=== PATIENT | male | born 1990 | race Caucasian/White ===

== ENCOUNTER 2023-01-01 03:06 | Inpatient (IN) ==
[2023-01-01] MEDS ORDERED: BENZONATATE 100 MG CAPSULE PO ONE (03:27)
[2023-01-01] MEDS ORDERED: SODIUM CHLORIDE 0.9% 1000ML 1,000 ML IV ONE (03:27)
[2023-01-01] MEDS ORDERED: ALBUT/IPRATROP 3MG/0.5MG NEB 3 ML VIAL NEB STA (03:27)
[2023-01-01] MEDS ORDERED: DOXYCYCLINE HYCLATE 100 MG in DEXTROSE 5% 100 ML IV STA (03:27)
[2023-01-01 04:00] LABS: Basophils # (auto) 0.06 K/uL (0-0.2); Basophils % (auto) 0.4 %; Eosinophils # (auto) 0.46 K/uL (0-0.50); Eosinophils % (auto) 2.9 %; Hematocrit (blood only) 39.8 % (42.0-52.0); Hemoglobin 13.2 g/dl (14.0-18.0); Immature Granulocytes # (auto) 0.05 K/uL (0.01-0.20); Immature Granulocytes % (auto) 0.3 %; Lymphocytes # (auto) 2.59 K/uL (1.2-3.4); Lymphocytes % (auto) 16.4 %; Mean Corpuscular Hemoglobin 27.4 pg (25.0-34.0); Mean Corpuscular Hgb Conc 33.2 g/dL (32.0-36.0); Mean Corpuscular Volume 82.6 fL (80.0-100.0); Mean Platelet Volume 9.2 fL (9.4-12.4); Monocytes # (auto) 0.99 K/uL (0.11-0.59); Monocytes % (auto) 6.3 %; Neutrophils % (auto) 73.7 %; Platelet Count 272 K/uL (130-400); RDW Coefficient of Variation 14.4 % (11.5-14.5); RDW Standard Deviation 42.6 fL (36.4-46.3); Red Blood Count 4.82 M/uL (4.70-6.10); White Blood Count 15.75 K/ul (4.8-10.8)
--- NOTE | 2023-01-01 04:10 | Emergency Department Note ---
Impression & Plan Dyspnea, Pneumonia, Hemoptysis, Dizziness, Hypoxia ED Provider Note ED Provider Note NAME: GISELLE MORTON AGE:32 SEX: Male : 1990 ARRIVES VIA: Private vehicle INFORMANT: Patient ED PROVIDER(s): Carmen Cotto DO CHIEF COMPLAINT: Trouble breathing, blood in sputum, dizziness HPI: This is a 32-year-old male presents emergency department due to concern for increased trouble breathing, blood in the sputum, and dizziness today. Patient had been seen and evaluated here last night and ultimately diagnosed with pneumonia. He was started on antibiotics. Patient states he felt worse throughout the day today with increased weakness, dizziness, had no appetite and did not take his medications. He states he began to feel lightheaded additionally. Patient states he noticed frequent bouts of coughing today and he was seeing bits of blood in his sputum. Patient denies blood from any other source. He states he was nauseated did not have any vomiting, no diarrhea, no abdominal pain. Patient states he still has some right flank pain which was his initial presenting complaint last night, although he feels overall the pain is improved. PAST MEDICAL HISTORY:See Below PAST SURGICAL HISTORY:See Below FAMILY HISTORY:See Below SOCIAL HISTORY:See Below HOME MEDICATIONS:See Below ALLERGIES:See Below VITALS:See Below PHYSICAL EXAMINATION: GENERAL: alert, well appearing, well nourished, no distress, non-toxic, BMI>50 EYE EXAM: normal conjunctiva, PERRL and EOM's grossly intact OROPHARYNX: no exudate, no erythema, lips, buccal mucosa, and tongue normal and mucous membranes are dry NECK: supple, no nuchal rigidity, no adenopathy, non-tender LUNGS: Clear b/l to auscultation. Normal chest wall mechanics, no w/r/r, decreased breath sounds noted at the right lung base posteriorly HEART: no murmurs, S1 normal and S2 normal ABDOMEN: abdomen soft, non-tender, normo-active bowel sounds, no masses, no rebound or guarding. BACK: Back is symmetrical on inspection and there is no deformity, no midline tenderness, no CVA tenderness. SKIN: no rashes, petechiae, orbruising UPPER EXTREMITIES: upper extremities are grossly normal. FROM, nml pulses b/l. LOWER EXTREMITIES: Trace b/l pitting edema. FROM, nml pulses b/l. NEURO EXAM: Normal sensorium, cranial nerves II-XII grossly intact, normal speech, no facial droop,nogross weakness of arms, no gross weakness of legs. Gross sensation intact. No ataxia. Vital Signs: reviewed and remarkable Differential Diagnosis: Pneumonia, PE, pleural effusion, pulmonary infarct, airway inflammation from frequent coughing, GI bleed, ACS, dysrhythmia, as well as others were considered MEDICAL DECISION MAKING: This is a 32-year-old male presents emergency room due to concern for increased trouble breathing, hemoptysis, dizziness, and weakness. Patient diagnosed with pneumonia yesterday. Labs drawn and sent, IV established, EKG performed interpreted me at bedside, patient monitored on telemetry. He was started on IV fluids, given a DuoNeb treatment, as well as a dose of his IV antibiotics as he had not been able to tolerate them by mouth yesterday. I suspect due to underlying illness patient with decreased oral intake which led to dehydration and likely symptoms of lightheadedness/dizziness. Patient did have a worsening leukocytosis compared to yesterday. Nasal swab negative. No other significant pulmonary risk factors. Patient was noted while awake and at rest to be hypoxic at 88% on room air, he was placed on oxygen via nasal cannula with improvement. Despite known pneumonia and due to worsening hemoptysis, patient sent for CT angiography of the chest. Pneumonia again noted, no evidence of PE. Due to increased oxygen requirements, worsening leukocytosis in the setting of known infection, and other calming symptoms at this time, case discussed with the hospitalist for additional evaluation and management. Consultation(s): [id number]: Discussed with Dr. Francis. ER Treatment Provided: See below Diagnostics Interpreted By Me: -ECG: Normal sinus at 83, normal axis, normal intervals, no acute ST/T wave changes -Cardiac Monitoring: An order was placed for continuous cardiac monitoring. The monitor shows a rate of 78 with normal sinus rhythm. -Laboratory studies: As stated above and show below. -Imaging studies: Triage Nursing Note Reviewed Prior/Outside Records Reviewed - outpatient PCP visit reviewed Past Med/Surg History Medical History ADHD Carpal tunnel syndrome on both sides Morbid obesity with BMI of 50.0-59.9, adult Rectal bleeding Sleep apnea CPAP Surgical History History of appendectomy History of facial surgery reconstructive facial surgery History of foot surgery History of tonsillectomy Family History Other No family history of adverse response to anesthesia Social History Smoking Status: Never smoker Tobacco Type: Smokeless Tobacco (Dip or Chew) Second Hand Exposure: No; Do You Dip or Chew Tobacco: Yes (chews (advised on policy)); Hx Alcohol Use: Yes Alcohol type: beer Hx Substance Use: No Preferred Language: Micronesian Communication Ability: Effective Mattress Inspector Required: No Beliefs That Will Affect Care: None Current Living Situation: Alone Feels Safe at Home: Yes Assistive Devices: None Allergies Allergies Allergy/AdvReac Type Severity Reaction Status Date / Time amoxicillin Allergy Intermediate Redness of Verified 12/30/22 23:25 Skin cefprozil Allergy Intermediate Redness of Verified 12/30/22 23:25 Skin clarithromycin Allergy Intermediate Redness of Verified 12/30/22 23:25 Skin Penicillins Allergy Intermediate Redness of Verified 12/30/22 23:25 Skin Home Meds Home Medications Medication Instructions Recorded Confirmed ibuprofen 200 mg tablet (Advil) 400 mg PO Q6H PRN Pain 12/12/21 03/01/22 albuterol sulfate 90 mcg/actuation 2 puff inhalation Q4H PRN 02/24/22 12/30/22 aerosol inhaler Shortness Of Breath azelastine 137 mcg (0.1 %) nasal 2 spray intranasal BID 02/26/22 12/30/22 spray aerosol fluticasone propionate 50 2 spray intranasal DAILY 02/26/22 12/30/22 mcg/actuation nasal spray,suspension allopurinol 300 mg tablet 300 mg PO QAM 12/30/22 12/30/22 indomethacin 75 mg 75 mg PO DAILY 12/30/22 12/30/22 capsule,extended release omeprazole 40 mg capsule,delayed 40 mg PO DAILYBB 12/30/22 12/30/22 release prednisone 20 mg tablet 0 mg PO DAILY 12/30/22 12/30/22 semaglutide (weight loss) 0.25 0.25 mg subcut WK 12/30/22 12/30/22 mg/0.5 mL subcutaneous pen injector (Josseline) Previous Rx's Medication Instructions Recorded doxycycline hyclate 100 mg tablet 100 mg PO BID 7 days #14 tabs 12/31/22 Results & Data (ED) Vital Signs Vital Signs - 24 hr 01/01/23 03:09 01/01/23 03:46 01/01/23 03:46 Temperature 36.8 C Temperature Source Temporal Artery Scan Pulse Rate 90 Pulse Rate [Finger] 93 H Pulse Rate from SpO2 Sensor Pulse Rhythm [Finger] Regular Pulse Strength [Finger] Normal Respiratory Rate 22 22 Respiratory Effort / Characteristics Non-Labored Non-Labored Spontaneous Spontaneous Respiratory Depth Normal Normal Normal Respiratory Pattern Regular Regular Blood Pressure 163/97 H Blood Pressure [Right Arm] 133/79 Blood Pressure Mean 119 Blood Pressure Mean [Right Arm] 97 Pulse Oximetry 95 94 Oxygen Delivery Method Room Air Room Air Room Air Oxygen Flow Rate Sepsis Recent Fever Within 48 Hours No Sepsis New/Unexplained Change in Mental Status N/A Sepsis Action Taken by Nursing No Action Required 01/01/23 03:46 01/01/23 03:39 01/01/23 03:40 Temperature Temperature Source Pulse Rate 84 88 Pulse Rate [Finger] Pulse Rate from SpO2 Sensor 86 Pulse Rhythm [Finger] Pulse Strength [Finger] Respiratory Rate 31 H Respiratory Effort / Characteristics Respiratory Depth Respiratory Pattern Blood Pressure Blood Pressure [Right Arm] Blood Pressure Mean Blood Pressure Mean [Right Arm] Pulse Oximetry 97 Oxygen Delivery Method Room Air Oxygen Flow Rate Sepsis Recent Fever Within 48 Hours Sepsis New/Unexplained Change in Mental Status Sepsis Action Taken by Nursing 01/01/23 04:00 01/01/23 04:30 01/01/23 03:50 Temperature Temperature Source Pulse Rate 89 81 Pulse Rate [Finger] Pulse Rate from SpO2 Sensor 89 85 Pulse Rhythm [Finger] Pulse Strength [Finger] Respiratory Rate 33 H 20 24 Respiratory Effort / Characteristics Respiratory Depth Deep Respiratory Pattern Blood Pressure 128/83 131/75 Blood Pressure [Right Arm] Blood Pressure Mean 98 93 Blood Pressure Mean [Right Arm] Pulse Oximetry 93 92 88 L Oxygen Delivery Method Nasal Cannula Nasal Cannula Room Air Oxygen Flow Rate 3 3 Sepsis Recent Fever Within 48 Hours Sepsis New/Unexplained Change in Mental Status Sepsis Action Taken by Nursing 01/01/23 05:16 01/01/23 05:30 01/01/23 05:30 Temperature Temperature Source Pulse Rate 82 82 Pulse Rate [Finger] Pulse Rate from SpO2 Sensor 81 Pulse Rhythm [Finger] Pulse Strength [Finger] Respiratory Rate 19 27 H Respiratory Effort / Characteristics Respiratory Depth Respiratory Pattern Blood Pressure 133/72 Blood Pressure [Right Arm] Blood Pressure Mean 92 Blood Pressure Mean [Right Arm] Pulse Oximetry 94 Oxygen Delivery Method Oxygen Flow Rate Sepsis Recent Fever Within 48 Hours Sepsis New/Unexplained Change in Mental Status Sepsis Action Taken by Nursing 01/01/23 06:00 01/01/23 06:01 01/01/23 06:01 Temperature Temperature Source Pulse Rate 93 H 95 H Pulse Rate [Finger] Pulse Rate from SpO2 Sensor 91 H 93 H Pulse Rhythm [Finger] Pulse Strength [Finger] Respiratory Rate 26 H 26 H Respiratory Effort / Characteristics Respiratory Depth Respiratory Pattern Blood Pressure 129/88 Blood Pressure [Right Arm] Blood Pressure Mean 101 Blood Pressure Mean [Right Arm] Pulse Oximetry 97 97 Oxygen Delivery Method Oxygen Flow Rate Sepsis Recent Fever Within 48 Hours Sepsis New/Unexplained Change in Mental Status Sepsis Action Taken by Nursing Laboratory Data 01/01/23 03:38 01/01/23 03:38 Lab Results 01/01/23 01/01/23 01/01/23 Range/Units 03:38 03:38 03:40 WBC 15.75 H (4.8-10.8) K/ul RBC 4.82 (4.70-6.10) M/uL Hgb 13.2 L (14.0-18.0) g/dl Hct 39.8 L (42.0-52.0) % MCV 82.6 (80.0-100.0) fL MCH 27.4 (25.0-34.0) pg MCHC 33.2 (32.0-36.0) g/dL RDW Std Deviation 42.6 (36.4-46.3) fL RDW Coeff of Samson 14.4 (11.5-14.5) % Plt Count 272 (130-400) K/uL MPV 9.2 L (9.4-12.4) fL Immature Gran % (Auto) 0.3 % Neut % (Auto) 73.7 % Lymph % (Auto) 16.4 % Adams % (Auto) 6.3 % Eos % (Auto) 2.9 % Baso % (Auto) 0.4 % Neut # (Auto) 11.60 H (1.40-6.50) K/uL Lymph # (Auto) 2.59 (1.2-3.4) K/uL Adams # (Auto) 0.99 H (0.11-0.59) K/uL Eos # (Auto) 0.46 (0-0.50) K/uL Baso # (Auto) 0.06 (0-0.2) K/uL Immature Gran # (Auto) 0.05 (0.01-0.20) K/uL Sodium 136 (136-145) mmol/L Potassium 4.3 (3.5-5.1) mmol/L Chloride 102 (98-107) mmol/L Carbon Dioxide 28 (21-32) mmol/L Anion Gap 6 (3-11) BUN 11 (6-23) mg/dl Creatinine 0.74 (0.6-1.4) mg/dl Est Cr Clr Drug Dosing 198.4 ml/min Est GFR ( Amer) 141.5 ml/min Est GFR (Non-Af Amer) 122.1 ml/min BUN/Creatinine Ratio 14.9 (10-20) Glucose 142 H (70-99(Fasting)) mg/dl Calcium 9.1 (8.6-10.3) mg/dl Magnesium 1.9 (1.7-2.4) mg/dl Total Bilirubin 0.6 (0.2-1.0) mg/dl AST 13 (13-39) U/L ALT 12 (7-52) U/L Alkaline Phosphatase 81 (34-104) U/L Troponin I High Sens 4.8 (0-20) pg/ml Total Protein 6.9 (6.0-8.3) gm/dl Albumin 4.0 (3.4-5.0) gm/dl Globulin 2.9 (2.5-4.0) gm/dl Albumin/Globulin Ratio 1.4 (0.9-2) Procalcitonin 0.06 (0-0.5) ng/ml SARS-CoV-2 (PCR) (Negative) Influenza Type A (PCR) (Neg) Influenza Type B (PCR) (Neg) RSV (RT-PCR) (Neg) 01/01/23 Range/Units 04:25 WBC (4.8-10.8) K/ul RBC (4.70-6.10) M/uL Hgb (14.0-18.0) g/dl Hct (42.0-52.0) % MCV (80.0-100.0) fL MCH (25.0-34.0) pg MCHC (32.0-36.0) g/dL RDW Std Deviation (36.4-46.3) fL RDW Coeff of Samson (11.5-14.5) % Plt Count (130-400) K/uL MPV (9.4-12.4) fL Immature Gran % (Auto) % Neut % (Auto) % Lymph % (Auto) % Adams % (Auto) % Eos % (Auto) % Baso % (Auto) % Neut # (Auto) (1.40-6.50) K/uL Lymph # (Auto) (1.2-3.4) K/uL Adams # (Auto) (0.11-0.59) K/uL Eos # (Auto) (0-0.50) K/uL Baso # (Auto) (0-0.2) K/uL Immature Gran # (Auto) (0.01-0.20) K/uL Sodium (136-145) mmol/L Potassium (3.5-5.1) mmol/L Chloride (98-107) mmol/L Carbon Dioxide (21-32) mmol/L Anion Gap (3-11) BUN (6-23) mg/dl Creatinine (0.6-1.4) mg/dl Est Cr Clr Drug Dosing ml/min Est GFR ( Amer) ml/min Est GFR (Non-Af Amer) ml/min BUN/Creatinine Ratio (10-20) Glucose (70-99(Fasting)) mg/dl Calcium (8.6-10.3) mg/dl Magnesium (1.7-2.4) mg/dl Total Bilirubin (0.2-1.0) mg/dl AST (13-39) U/L ALT (7-52) U/L Alkaline Phosphatase (34-104) U/L Troponin I High Sens (0-20) pg/ml Total Protein (6.0-8.3) gm/dl Albumin (3.4-5.0) gm/dl Globulin (2.5-4.0) gm/dl Albumin/Globulin Ratio (0.9-2) Procalcitonin (0-0.5) ng/ml SARS-CoV-2 (PCR) NEGATIVE (Negative) Influenza Type A (PCR) Negative (Neg) Influenza Type B (PCR) Negative (Neg) RSV (RT-PCR) Negative (Neg) Administered Medications Discontinued Medications Albuterol (Albut/Ipratrop 3mg/0.5mg Neb 3 Ml Vial) 3 ml NEB NOW STA; Protocol Stop: 01/01/23 03:28 Last Admin: 01/01/23 03:33 Dose: 3 ml Documented By: JUVENCIO Benzonatate (Benzonatate 100 Mg Capsule) 100 mg PO NOW ONE Stop: 01/01/23 03:28 Last Admin: 01/01/23 03:34 Dose: 100 mg Documented By: JUVENCIO Sodium Chloride (Nss 1000ml) 1,000 mls @ 999 mls/hr IV .Q1H1M ONE Stop: 01/01/23 04:27 Last Infusion: 01/01/23 06:24 Dose: 0 mls/hr Documented By: Admin: 01/01/23 04:02 Dose: 999 mls/hr Documented By: JUVENCIO Doxycycline Hyclate 100 mg/ (Dextrose) 110 mls @ 50 mls/hr IV NOW STA Stop: 01/01/23 05:38 Last Infusion: 01/01/23 06:24 Dose: 0 mls/hr Documented By: Admin: 01/01/23 04:02 Dose: 50 mls/hr Documented By: JUVENCIO Acetaminophen (Ofirmev) 1,000 mg in 100 mls @ 400 mls/hr IV NOW STA Stop: 01/01/23 05:51 Last Infusion: 01/01/23 06:51 Dose: 0 mls/hr Documented By: Admin: 01/01/23 06:24 Dose: 400 mls/hr Documented By: JUVENCIO Ioversol (Optiray 320 500ml) 114 ml IV ONCE ONE Stop: 01/01/23 05:19 Last Admin: 01/01/23 05:18 Dose: 114 ml Documented By: JON Imaging Data Radiologist's Impression: Chest CTA 01/01/23 03:27 CT angio chest PE protocol CLINICAL HISTORY: PE TECHNIQUE: Multidetector row helical CT of the chest was performed with angiographic protocol. Coronal and sagittal reformations were obtained. Coronal and sagittal MIPS were obtained from the axial data set and were submitted for review. Automated dose lowering techniques and/or adjustment according to patient size were utilized for this exam. CT DOSE: 980.24 mGy.cm Comparison: Comparison is made to chest radiograph 12/31/2022 FINDINGS: Lungs and pleura: Multifocal airspace opacities are seen most prominently in the lower lungs. Again suspected, no suspicious nodules are seen. There are a few calcified. Heart and pericardium: Heart size is normal. No pericardial effusion. Vessels: No evidence of pulmonary embolism. Mediastinum and tyrone: Numerous mediastinal lymph nodes measure up to 10 mm in the right paratracheal station. Bilateral subcentimeter hilar lymph nodes are also seen. Chest wall and lower neck: Unremarkable. Abdomen: Unremarkable. Bones: Degenerative changes in the thoracic spine. IMPRESSION: No pulmonary embolus is seen. There are multifocal airspace opacities compatible with pneumonia with reactive hilar and mediastinal lymphadenopathy. ACT 112: Negative or not required by law. Electronically signed by: Rigo Aviles M.D. 01/01/2023 7:47 AM Discharge Plan Visit Data Chief Complaint: Shortness of Breath/Dyspnea Stated Complaint: COUGH, DIZZINESS, FATIGUE ED Provider: Carmen Cotto Discharge Problem: Dyspnea, Pneumonia, Hemoptysis, Dizziness, Hypoxia
[2023-01-01 04:15] LABS: Albumin Globulin Ratio 1.4 (0.9-2); BUN Creatinine Ratio 14.9 (10-20); Bilirubin,Total 0.6 mg/dl (0.2-1.0); Calcium 9.1 mg/dl (8.6-10.3); Creatinine Clr Calc Pharmacy 198.4 ml/min; Est GFR (African American) 141.5 ml/min; Est GFR (Non-African American) 122.1 ml/min; Globulin 2.9 gm/dl (2.5-4.0); Magnesium 1.9 mg/dl (1.7-2.4); Potassium 4.3 mmol/L (3.5-5.1); Total Protein 6.9 gm/dl (6.0-8.3)
[2023-01-01 04:21] LABS: Troponin I High Sensitivity 4.8 pg/ml (0-20)
[2023-01-01] MEDS ORDERED: OPTIRAY 320 500ml IV ONE (05:18)
[2023-01-01] MEDS ORDERED: ACETAMINOPHEN 1,000 MG/100 ML VIAL IV STA (05:37)
[2023-01-01 05:40] LABS: Influenza A virus by PCR Negative (Neg); Influenza B virus by PCR Negative (Neg); RSV by PCR Negative (Neg); SARS CoV2 RNA(COVID-19) Ceph NEGATIVE (Negative)
--- NOTE | 2023-01-01 07:06 | Electrocardiogram Report ---
Test Reason : Blood Pressure : / mmHG Vent. Rate : 083 BPM Atrial Rate : 083 BPM P-R Int : 136 ms QRS Dur : 088 ms QT Int : 334 ms P-R-T Axes : -02 050 056 degrees QTc Int : 392 ms Normal sinus rhythm Normal ECG When compared with ECG of 13-DEC-2021 00:38, No significant change was found Confirmed by Jhon Fox ([id number]) on 01/01/2023 7:06:20 AM Referred By: Becki Porter Confirmed By:Mayo Fox
--- NOTE | 2023-01-01 07:49 | CT Scan Report ---
CT angio chest PE protocol CLINICAL HISTORY: PE TECHNIQUE: Multidetector row helical CT of the chest was performed with angiographic protocol. Conner l and sagittal reformations were obtained. Coronal and sagittal MIPS were obtained from the axial win a set and were submitted for review. Automated dose lowering techniques and/or adjustment according to patient size were utilized for this exam. CT DOSE: 980.24 mGy.cm Comparison: Comparison is made to chest radiograph 12/31/2022 FINDINGS: Lungs and pleura: Multifocal airspace opacities are seen most prominently in the lower lungs. Again s uspected, no suspicious nodules are seen. There are a few calcified. Heart and pericardium: Heart size is normal. No pericardial effusion. Vessels: No evidence of pulmonary embolism. Mediastinum and tyrone: Numerous mediastinal lymph nodes measure up to 10 mm in the right paratracheal station. Bilateral subcentimeter hilar lymph nodes are also seen. Chest wall and lower neck: Unremarkable. Abdomen: Unremarkable. Bones: Degenerative changes in the thoracic spine. IMPRESSION: No pulmonary embolus is seen. There are multifocal airspace opacities compatible with pneumonia with reactive hilar and mediastinal lymphadenopathy. ACT 112: Negative or not required by law. Electronically signed by: Rigo Aviles M.D. 01/01/2023 7:47 AM
--- NOTE | 2023-01-01 08:42 | History and Physical Report ---
DATE OF ADMISSION: 01/01/2023. CHIEF COMPLAINT: Shortness of breath. HISTORY OF PRESENT ILLNESS: This is a 32-year-old male with past medical history significant for mixed rhinitis, nasal polyps, obstructive sleep apnea, on CPAP. Currently, he is trying to get a new sleep study and currently not using CPAP machine, morbid obesity, presents with shortness of breath and hemoptysis. The patient was here in the ER yesterday with right flank pain and workup with CT abdomen and pelvis, which was negative for any renal lesions, but showed right lower lobe pneumonia and he was discharged on doxycycline. The patient has recently had cough and congestion and was treated with 1 week of prednisone. He says it did not help much. Denies any fevers. He also had chest pain along with right flank pain started yesterday, he thinks this could be from the coughing, mild in nature. Has headache. No blurred visions, no earache. Has some runny nose. No sore throat. No abdominal pain. . He has recently started semaglutide shots for weight loss,abot a t week ago and since then he is micturating a lot . Say since discharged from the ER yesterday, going home, he was coughing up a lot of blood clots, In the Er he says he coughed up little bit. In the ER while sleeping, desaturated to 88%, requiring oxygen. ALLERGIES: AMOXICILLIN, CEFZIL, CLARITHROMYCIN, PENICILLIN. PAST MEDICAL HISTORY: As mentioned above. PAST SURGICAL HISTORY: Colonoscopy, Eardrum opening, EGD, laparoscopic appendectomy, tonsillectomy and adenoidectomy. MEDICATIONS: As per the [facility], the patient is on semaglutide 0.5 mg subcutaneous injection once a week, azelastine 0.1% nasal solution 2 sprays b.i.d., allopurinol 300 mg p.o. daily, indomethacin 75 mg p.o. daily, omeprazole 40 mg p.o. daily, albuterol 2 puffs q. 4 hours p.r.n. FAMILY HISTORY: Significant for sister has allergies, asthma; paternal grandmother has diabetes; paternal grandmother has heart disorder, thyroid disorder. SOCIAL HISTORY: Chews tobacco. Alcohol, rarely. No drug use. REVIEW OF SYSTEMS: As per HPI. Rest of review of systems is negative. PHYSICAL EXAMINATION: GENERAL: The patient is morbidly obese Not in acute distress. VITAL SIGNS: Temperature 36.8, pulse 84, respiratory rate 20, blood pressure 131/75 oxygen 92% on 3 L. HEENT: Pupils equal, round and reactive to light. Oral mucosa moist. NECK: No JVD, no neck masses. CARDIOVASCULAR: S1 and S2 heard. Regular rate and rhythm. No murmur, no gallop. RESPIRATORY SYSTEM: Normal AP diameter. No accessory muscle use. No wheezing or crackles. ABDOMEN: Soft, bowel sounds present, nontender, no distention. CENTRAL NERVOUS SYSTEM: Alert and oriented. Speech is clear and nonfocal. EXTREMITIES: No edema, no erythema. LABORATORY DATA: WBC 15, hemoglobin 13.2, hematocrit 39.8, platelets 272. Sodium 136, potassium 4.3, chloride 102, bicarbonate 28, BUN 11, creatinine 0.7, serum glucose 142, calcium 9.1, magnesium 1.9, total bilirubin 0.6, AST 13, ALT 12, alkaline phosphatase 81. Troponin I high sensitivity 4.8. Procalcitonin 0.06. SARS-CoV-2 rapid test negative. Influenza A and B PCR negative. RSV PCR negative. IMAGING DATA: CTA chest results pending. EKG, normal sinus rhythm at rate of 83, no significant change was found. ASSESSMENT AND PLAN: This is a 32-year-old male, presents with shortness of breath, hemoptysis. 1. Shortness of breath, hemoptysis. CT abdomen and pelvis done yesterday, showed right lower lobe pneumonia. CTA chest done today, awaiting the results. Will start on Levaquin as allergic to penicillins and cephalosporins as per records. sputum cultures. Because of hemoptysis, we will consult Pulmonary. Monitor in the med tele. 2. Chest pain, most likely from coughing. Initial troponin and EKG unremarkable. Follow serial enzymes and echocardiogram. If any concern, will consult cardiology. 3. Sleep apnea. The patient says he is supposed to go to sleep study again and get a new CPAP machine. Currently, not using cpap at home. Was desaturating while sleeping in ER.Will use cpap in the hospital. 4. Morbid obesity. Needs counseling. The patient is started on semaglutide injection for weight loss. After that, he says he is micturating a lot.Needs followup. Counselling. 5. Gastroesophageal reflux disease. Omeprazole. 6. Deep venous thrombosis prophylaxis. Scds as the patient has hemoptysis. DISPOSITION: Closely monitor in the med tele. PT/OT prior to discharge. Social service to help with discharge planning. Job ID: [id number] RULA
[2023-01-01] MEDS ORDERED: POLYETHYLENE (MIRALAX) 17 GM PACK PO PRN (10:27)
[2023-01-01] MEDS ORDERED: guaiFENesin SUGAR FREE 200 MG/10 ML UDC PO PRN (10:27)
[2023-01-01] MEDS ORDERED: ALBUT/IPRATROP 3MG/0.5MG NEB 3 ML VIAL NEB PRN (10:27)
[2023-01-01] MEDS ORDERED: ONDANSETRON INJ 2 MG/ML 2 ML VIAL IV PRN (10:27)
[2023-01-01] MEDS ORDERED: NITROGLYCERIN SL 0.4 MG/TAB TAB SL PRN (10:27)
[2023-01-01] MEDS ORDERED: ALBUTEROL HFA 8 GM INHALER INH PRN (10:27)
[2023-01-01] MEDS ORDERED: SODIUM CHLORIDE 0.9% 1000ML 1,000 ML IV SCH (10:27)
[2023-01-01] MEDS: PANTOprazole 40 MG TAB PO SCH (11:17)
[2023-01-01] MEDS: levoFLOXacin/D5W 750 MG/150 ML BAG IV SCH (11:17)
[2023-01-01] MEDS: AZELASTINE HCL 0.1% NASAL 200 SPRAYS/27,400 MCG BTL SCH ×2 (11:22→22:31)
[2023-01-01] MEDS: allopurinoL 300 MG TAB PO SCH (11:22)
--- NOTE | 2023-01-01 12:29 | Pulmonary Consultation ---
Date of Consultation January 01, 2023 Assessment & Plan (1) Pneumonia: Patient reportedly has an allergy to penicillins and was started on levofloxacin by the hospitalist service. I think this is reasonable at this time, but would recommend allergy evaluation as an outpatient to see if he is truly allergic to penicillins. Can also consider immunodeficiency work-up as an outpatient. Incentive spirometer. Out of bed to chair. Start DuoNebs every 4 hours. I took the patient's oxygen off and he was saturating 95 to 97% on room air. Please only use supplemental oxygen if his oxygen saturations drop below 92%. (2) Dyspnea: Secondary to acute pneumonia and morbid obesity. (3) Hemoptysis: Secondary to bronchitis from pneumonia. No further episodes of hemoptysis since arriving to the ER. No indication for bronchoscopy at this time. If he has further hemoptysis, can consider nebulized TXA. (4) Morbid obesity: Significant risk factor for developing pneumonia in the future along with other comorbidities. Weight loss discussed. He recently started Wegovy and hopes to lose weight with the assistance of this medication. (5) Obstructive sleep apnea: He has a history of MANI, but does not have a functioning CPAP device. He notes that he was set up for an in lab polysomnography by his PCP as an outpatient. Plan Thanks for the consult. We will continue to follow with you. History of Present Illness Reason for Consultation: Hemoptysis Attending Physician: Jung Carter MD History of Present Illness History obtained from the patient, review of the ER records, review of H&P by the hospitalist, review of labs and imaging. I also reviewed prior chest x-ray and CT imaging. Patient presented today to the ER via private vehicle for trouble breathing and hemoptysis. Patient notes symptoms started last week. He was given an dose of prednisone by his PCP for possible sinusitis. Symptoms got worse. He was also in the ER on the and was diagnosed with pneumonia. He did not take his antibiotics after that ER visit. He is currently saturating 98% on 4 L of oxygen. Cepheid viral panel was negative for COVID, influenza A/B, RSV. Chest CTA revealed for airspace opacities and reactive hilar adenopathy. No pulmonary embolism. White count elevated to 15,750. Platelet count unremarkable. Patient is currently on 100 cc an hour normal saline levofloxacin, azelastine nasal spray and pantoprazole. He notes hemoptysis started around 2 AM yesterday evening. He has not had any bouts of hemoptysis since his ER stay. He does have a cough that is occasionall y productive of sputum. No fevers or chills. He does feel fatigued. He chews tobacco. Denies vaping, e-cigarettes or smoking cigarettes. 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 Denies any pets. He has a history of MANI and was prescribed CPAP, but was noncompliant as he notes that the equipment did not work properly. He says that he has a new sleep study ordered by his PCP through [facility]. Allergies Allergy/AdvReac Type Severity Reaction Status Date / Time amoxicillin Allergy Intermediate Redness of Verified 12/30/22 23:25 Skin cefprozil Allergy Intermediate Redness of Verified 12/30/22 23:25 Skin clarithromycin Allergy Intermediate Redness of Verified 12/30/22 23:25 Skin Penicillins Allergy Intermediate Redness of Verified 12/30/22 23:25 Skin Home Medications Medication Instructions Recorded Confirmed Type ibuprofen 200 mg tablet (Advil) 400 mg PO Q6H PRN Pain 12/12/21 03/01/22 History albuterol sulfate 90 mcg/actuation 2 puff inhalation Q4H PRN 02/24/22 12/30/22 History aerosol inhaler Shortness Of Breath azelastine 137 mcg (0.1 %) nasal 2 spray intranasal BID 02/26/22 12/30/22 History spray aerosol fluticasone propionate 50 2 spray intranasal DAILY 02/26/22 12/30/22 History mcg/actuation nasal spray,suspension allopurinol 300 mg tablet 300 mg PO QAM 12/30/22 12/30/22 History indomethacin 75 mg 75 mg PO DAILY 12/30/22 12/30/22 History capsule,extended release omeprazole 40 mg capsule,delayed 40 mg PO DAILYBB 12/30/22 12/30/22 History release prednisone 20 mg tablet 0 mg PO DAILY 12/30/22 12/30/22 History semaglutide (weight loss) 0.25 0.25 mg subcut WK 12/30/22 12/30/22 History mg/0.5 mL subcutaneous pen injector (Josseline) doxycycline hyclate 100 mg tablet 100 mg PO BID 7 days #14 tabs 12/31/22 Rx Patient History Medical History (Updated 01/01/23 @ 12:49 by Albert Del Cid MD) ADHD Carpal tunnel syndrome on both sides Morbid obesity Morbid obesity with BMI of 50.0-59.9, adult Obstructive sleep apnea Rectal bleeding Sleep apnea CPAP Surgical History History of appendectomy History of facial surgery reconstructive facial surgery History of foot surgery History of tonsillectomy Family History Other No family history of adverse response to anesthesia Social History Smoking Status: Never smoker Tobacco Type: Smokeless Tobacco (Dip or Chew) Second Hand Exposure: No; Do You Dip or Chew Tobacco: Yes (chews (advised on policy)); Hx Alcohol Use: Yes Alcohol type: beer Hx Substance Use: No Preferred Language: Urdu Communication Ability: Effective Licensed Practical Nurse Required: No Beliefs That Will Affect Care: None Current Living Situation: Alone Feels Safe at Home: Yes Assistive Devices: None Review of Systems Review of Systems: All systems reviewed & are unremarkable except as noted in HPI & below Physical Exam Physical Exam: Constitutional: Morbidly obese appearing male in mild distress. Coughing frequently. Eyes: Pupils are equal round and reactive to light. Conjunctivae are normal. Anicteric sclera. Ears nose, mouth and throat: Mallampati class 3. Normal posterior oropharynx. Uvula is midline. Neck: Trachea is midline. Visual inspection is normal. Respiratory: Mild crackles and diminished at bases. Cardiovascular: Regular rate and rhythm. No murmurs. No edema. Gastrointestinal: Normal bowel sounds, soft, nontender and nondistended. No hepatosplenomegaly noted. Musculoskeletal: No cyanosis. Patient is able to move all extremities. Strength is 5 out of 5 in the upper and lower extremities. Skin: No rashes, warm dry and intact. Neurologic: No obvious focal neurological deficits seen. Psychiatric: Alert and oriented x3 with a euthymic affect. Results & Data Results & Data Vital Signs (Past 12 Hours) Vital Signs Temp Pulse Pulse Resp BP BP Pulse Ox 01/01/23 11:23 36.7 C 87 22 142/65 H 98 01/01/23 11:40 01/01/23 08:31 124/71 98 01/01/23 08:00 83 18 115/84 98 01/01/23 07:30 85 21 117/91 98 01/01/23 07:00 72 26 H 127/77 94 01/01/23 06:30 82 17 99 01/01/23 06:30 141/90 H 01/01/23 06:01 129/88 01/01/23 06:01 95 H 26 H 97 01/01/23 06:00 93 H 26 H 97 01/01/23 05:30 82 27 H 94 01/01/23 05:30 133/72 01/01/23 05:16 82 19 01/01/23 03:50 24 88 L 01/01/23 04:30 81 20 131/75 92 01/01/23 04:00 89 33 H 128/83 93 01/01/23 03:40 88 31 H 97 01/01/23 03:39 84 01/01/23 03:46 01/01/23 03:46 01/01/23 03:46 93 H 22 133/79 94 01/01/23 03:09 36.8 C 90 22 163/97 H 95 Pulse Ox O2 Del Method O2 Del Method O2 Flow Rate O2 Flow Rate 01/01/23 11:23 Nasal Cannula 4 01/01/23 11:40 98 Nasal Cannula 4 01/01/23 08:31 Nasal Cannula 4 01/01/23 08:00 Nasal Cannula 4 01/01/23 07:30 Nasal Cannula 4 01/01/23 07:00 Nasal Cannula 4 01/01/23 06:30 01/01/23 06:30 01/01/23 06:01 01/01/23 06:01 01/01/23 06:00 01/01/23 05:30 01/01/23 05:30 01/01/23 05:16 01/01/23 03:50 Room Air 01/01/23 04:30 Nasal Cannula 3 01/01/23 04:00 Nasal Cannula 3 01/01/23 03:40 01/01/23 03:39 01/01/23 03:46 Room Air 01/01/23 03:46 Room Air 01/01/23 03:46 Room Air 01/01/23 03:09 Room Air PG Care Time/CCT Total # of Minutes Spent Total Time Spent with Patient: Total time spent is greater than 50% in coordination of care (as documented) at patient's floor/unit and/or counseling patient: Coding Level of Care Code 55570 IN/OBS CONSULT LVL 5,80M Diagnoses Pneumonia J18.9 Dyspnea R06.00 Hemoptysis R04.2 Morbid obesity E66.01 Obstructive sleep apnea G47.33
[2023-01-01] MEDS: ALBUT/IPRATROP 3MG/0.5MG NEB 3 ML VIAL NEB SCH ×3 (15:16→22:36)
--- NOTE | 2023-01-01 15:37 | Hospitalist Progress Note ---
Date of Service January 01, 2023 Assessment & Plan (1) Pneumonia: Plan: Patient is a 32 yr male who presents with shortness of breath, hemoptysis. Multifocal pneumonia Hemoptysis secondary to above Hypoxia secondary to above --CTA:No pulmonary embolus is seen. There are multifocal airspace opacities compatible with pneumonia with reactive hilar and mediastinal lymphadenopathy. Continue IV Levaquin Continue gentle IV fluids Antitussives as needed Appreciate pulmonology input Hyperglycemia Rule out diabetes mellitus Chest pain Likely musculoskeletal secondary to cough Troponin negative EKG showed no signs of acute ischemia CT as above Echo pending MANI CPAP HS Morbid obesity BMI 50 on semaglutide GERD on PPI DVT Px: SCDs for now Code Status Full Code Admission and Anticipated Discharge Date Admission Date: January 01, 2023 Subjective Patient is seen and examined at bedside States having cough with expectoration No hemoptysis today Denies any chest pain, dizziness, nausea, abdominal pain No other complaints Review of Systems Review of Systems: All systems reviewed & are unremarkable except as noted in Subjective Physical Exam Physical Exam: Physical Exam: Vitals signs as noted above General Appearance:Morbidly Obese, no apparent distress Head: normocephalic, Atraumatic Eyes: normal inspection, EOMI Neck: supple, Trachea midline Respiratory/Chest: Decreased breath sounds, CTA, No accessory muscle use Cardiovascular: S1, S2, No murmur Abdomen/GI:Soft, Non tender, Bowel sounds present Extremities/Musculoskeletal:normal inspection, no edema Neurologic/Psych:AAOX3, grossly no focal neurological deficits Skin: normal color, warm Results & Data Results & Data Vital Signs (Past 12 Hours) Vital Signs Temp Pulse Pulse Resp BP BP Pulse Ox 01/01/23 13:04 01/01/23 11:23 36.7 C 87 22 142/65 H 98 01/01/23 11:40 01/01/23 08:31 124/71 98 01/01/23 08:00 83 18 115/84 98 01/01/23 07:30 85 21 117/91 98 01/01/23 07:00 72 26 H 127/77 94 01/01/23 06:30 82 17 99 01/01/23 06:30 141/90 H 01/01/23 06:01 129/88 01/01/23 06:01 95 H 26 H 97 01/01/23 06:00 93 H 26 H 97 01/01/23 05:30 82 27 H 94 01/01/23 05:30 133/72 01/01/23 05:16 82 19 01/01/23 03:50 24 88 L 01/01/23 04:30 81 20 131/75 92 01/01/23 04:00 89 33 H 128/83 93 01/01/23 03:40 88 31 H 97 01/01/23 03:39 84 01/01/23 03:46 01/01/23 03:46 01/01/23 03:46 93 H 22 133/79 94 Pulse Ox O2 Del Method O2 Del Method O2 Flow Rate O2 Flow Rate 01/01/23 13:04 95 Room Air 01/01/23 11:23 Nasal Cannula 4 01/01/23 11:40 98 Nasal Cannula 4 01/01/23 08:31 Nasal Cannula 4 01/01/23 08:00 Nasal Cannula 4 01/01/23 07:30 Nasal Cannula 4 01/01/23 07:00 Nasal Cannula 4 01/01/23 06:30 01/01/23 06:30 01/01/23 06:01 01/01/23 06:01 01/01/23 06:00 01/01/23 05:30 01/01/23 05:30 01/01/23 05:16 01/01/23 03:50 Room Air 01/01/23 04:30 Nasal Cannula 3 01/01/23 04:00 Nasal Cannula 3 01/01/23 03:40 01/01/23 03:39 01/01/23 03:46 Room Air 01/01/23 03:46 Room Air 01/01/23 03:46 Room Air Laboratory Results Short CBC 01/01/23 Range/Units 03:38 WBC 15.75 H (4.8-10.8) K/ul Hgb 13.2 L (14.0-18.0) g/dl Hct 39.8 L (42.0-52.0) % Plt Count 272 (130-400) K/uL BMP 01/01/23 03:38 Sodium 136 Potassium 4.3 Chloride 102 Carbon Dioxide 28 BUN 11 Creatinine 0.74 Glucose 142 H Calcium 9.1 Liver Function 01/01/23 Range/Units 03:38 Total Bilirubin 0.6 (0.2-1.0) mg/dl AST 13 (13-39) U/L ALT 12 (7-52) U/L Alkaline Phosphatase 81 (34-104) U/L Albumin 4.0 (3.4-5.0) gm/dl
[2023-01-01] MEDS ORDERED: COUGH DROP (SUGAR FREE) LOZ 24 LOZ/1 BOX BUCCAL PRN (21:51)
[2023-01-01] MEDS: ACETAMINOPHEN 325 MG TAB PO PRN (21:56)
[2023-01-01] MEDS ORDERED: BENZONATATE 100 MG CAPSULE PO PRN (22:06)
[2023-01-02] MEDS: ACETAMINOPHEN 325 MG TAB PO PRN ×2 (02:16→15:26)
[2023-01-02] MEDS: ALBUT/IPRATROP 3MG/0.5MG NEB 3 ML VIAL NEB SCH ×4 (02:27→17:07)
[2023-01-02 05:58] LABS: Basophils # (auto) 0.05 K/uL (0-0.2); Basophils % (auto) 0.4 %; Eosinophils # (auto) 0.47 K/uL (0-0.50); Eosinophils % (auto) 3.4 %; Hematocrit (blood only) 41.3 % (42.0-52.0); Hemoglobin 13.3 g/dl (14.0-18.0); Immature Granulocytes # (auto) 0.08 K/uL (0.01-0.20); Immature Granulocytes % (auto) 0.6 %; Lymphocytes # (auto) 2.43 K/uL (1.2-3.4); Lymphocytes % (auto) 17.7 %; Mean Corpuscular Hemoglobin 26.7 pg (25.0-34.0); Mean Corpuscular Hgb Conc 32.2 g/dL (32.0-36.0); Mean Corpuscular Volume 82.9 fL (80.0-100.0); Mean Platelet Volume 9.3 fL (9.4-12.4); Monocytes # (auto) 1.07 K/uL (0.11-0.59); Monocytes % (auto) 7.8 %; Neutrophils # (auto) 9.61 K/uL (1.40-6.50); Neutrophils % (auto) 70.1 %; Platelet Count 289 K/uL (130-400); RDW Coefficient of Variation 14.4 % (11.5-14.5); RDW Standard Deviation 43.5 fL (36.4-46.3); Red Blood Count 4.98 M/uL (4.70-6.10); White Blood Count 13.71 K/ul (4.8-10.8)
[2023-01-02 06:10] LABS: BUN Creatinine Ratio 12.8 (10-20); Calcium 8.8 mg/dl (8.6-10.3); Creatinine Clr Calc Pharmacy 187.9 ml/min; Est GFR (Non-African American) 114.7 ml/min; Potassium 4.2 mmol/L (3.5-5.1)
[2023-01-02] MEDS: AZELASTINE HCL 0.1% NASAL 200 SPRAYS/27,400 MCG BTL SCH (07:16)
[2023-01-02] MEDS: PANTOprazole 40 MG TAB PO SCH (07:19)
[2023-01-02 08:01] LABS: Estimated Average Glucose 148 mg/dl; Hemoglobin A1C 6.8 % (4.5-5.6)
--- NOTE | 2023-01-02 08:50 | Pulmonology Progress Note ---
Date of Service January 02, 2023 Assessment & Plan (1) Pneumonia: (2) Hemoptysis: (3) Obstructive sleep apnea: Plan Impression: 32-year-old male with morbid obesity and history of sleep disordered breathing (PSG performed July 2015 was performed as a split-night study. Patient's AHI during the diagnostic portion of the study was 47.8 consistent with severe sleep disordered breathing. He was placed on CPAP at a pressure setting of 17 cmH2O appeared adequate). He is not on any current therapy and was admitted with hypoxemic respiratory failure and pulmonary infiltrates consistent with pneumonia. Recommendations: 1. Severe sleep disordered breathing: Continue nightly CPAP at 17 cm of water based on his prior study. We will check room air arterial blood gas. If he is hypercarbic, he would likely qualify for replacement nocturnal positive airway pressure without need for additional sleep study. He can continue to follow with the [facility] sleep physicians. 2. Morbid obesity: Weight loss recommended. Referral to bariatric medicine may be appropriate. 3. Pneumonia: Currently day #2 levofloxacin. White blood cell count has decreased to 13,000 from 15,000. Anticipate completing 5 days of antimicrobial therapy. 4. Hypoxemia: Appears to have resolved. Recommend ambulating the patient in the hallway. He may need to be assessed for supplemental oxygen prior to discharge A total of 55 min spent reviewing case and coordinating care for this patient. Admission and Anticipated Discharge Date Admission Date: January 01, 2023 Subjective Patient seen and examined. EMR reviewed. Discussed with off going guest services director. The patient states that he is feeling better. Has been weaned off of supplemental oxygen. He did use oxygen last night rather than CPAP. He reports that he was diagnosed with sleep disordered breathing over 8 years ago and is followed through the [email or web address] system. He has not used his CPAP in several yea rs as he states they had issues getting him appropriate replacement equipment. He is apparently been ordered a follow-up polysomnography but this has not yet been completed. He has not had any additional episodes of significant hemoptysis. He has had some slight blood-tinged phlegm. For the most part he is expectorating clear phlegm. No chest pain or palpitations. He does not report any wheezing. He overall feels improved but is weak. Review of Systems Review of Systems: All systems reviewed & are unremarkable except as noted in Subjective Physical Exam Constitutional: WD/WN, vitals as above Neck: trachea midline, no thyromegaly Respiratory: normal respiratory effort, lungs clear to auscultation Cardiovascular: RRR, no murmur, no edema Gastrointestinal (Abdomen): normal bowel sounds, soft, nontender, no hepatosplenomegaly Musculoskeletal: Extremities: extremities normal to inspection Skin: no rashes, warm and dry Neurologic: Nonfocal exam Lymphatic: no cervical lymphadenopathy Results & Data Results & Data Vital Signs (Past 12 Hours) Vital Signs Temp Pulse Pulse Resp BP BP Pulse Ox 01/02/23 08:00 83 01/02/23 07:47 01/02/23 07:31 36.7 C 84 20 158/88 H 95 01/02/23 07:12 94 H 22 94 01/02/23 02:32 36.7 C 82 18 134/76 96 01/01/23 22:02 92 H 01/01/23 22:42 37.1 C 92 H 18 153/73 H 94 01/01/23 22:36 80 24 94 O2 Del Method O2 Flow Rate 01/02/23 08:00 01/02/23 07:47 Room Air 01/02/23 07:31 Room Air 01/02/23 07:12 Room Air 01/02/23 02:32 Room Air 01/01/23 22:02 01/01/23 22:42 Room Air 01/01/23 22:36 Room Air 2 Critical Care Results & Data Vital Signs (Past 12 Hours) Vital Signs Temp Pulse Pulse Resp BP BP Pulse Ox 01/02/23 08:00 83 01/02/23 07:47 01/02/23 07:31 36.7 C 84 20 158/88 H 95 01/02/23 07:12 94 H 22 94 01/02/23 02:32 36.7 C 82 18 134/76 96 01/01/23 22:02 92 H 01/01/23 22:42 37.1 C 92 H 18 153/73 H 94 01/01/23 22:36 80 24 94 O2 Del Method O2 Flow Rate 01/02/23 08:00 01/02/23 07:47 Room Air 01/02/23 07:31 Room Air 01/02/23 07:12 Room Air 01/02/23 02:32 Room Air 01/01/23 22:02 01/01/23 22:42 Room Air 01/01/23 22:36 Room Air 2 Lab & Micro Results (Past 24 Hours) RBC 4.98 M/uL (4.70-6.10) 01/02/23 WBC 13.71 K/ul (4.8-10.8) H 01/02/23 Hgb 13.3 g/dl (14.0-18.0) L 01/02/23 Hct 41.3 % (42.0-52.0) L 01/02/23 MCV 82.9 fL (80.0-100.0) 01/02/23 MCH 26.7 pg (25.0-34.0) 01/02/23 MCHC 32.2 g/dL (32.0-36.0) 01/02/23 RDW Standard Deviation 43.5 fL (36.4-46.3) 01/02/23 RDW Coefficient of Variation 14.4 % (11.5-14.5) 01/02/23 Plt Count 289 K/uL (130-400) 01/02/23 MPV 9.3 fL (9.4-12.4) L 01/02/23 Neutrophils (%) (Auto) 70.1 % 01/02/23 Lymphocytes (%) (Auto) 17.7 % 01/02/23 Monocytes # (Auto) 1.07 K/uL (0.11-0.59) H 01/02/23 Eosinophils # (Auto) 0.47 K/uL (0-0.50) 01/02/23 Immature Granulocyte % (Auto) 0.6 % 01/02/23 Neutrophils # (Auto) 9.61 K/uL (1.40-6.50) H 01/02/23 Lymphocytes # (Auto) 2.43 K/uL (1.2-3.4) 01/02/23 Monocytes # (Auto) 1.07 K/uL (0.11-0.59) H 01/02/23 Eosinophils # (Auto) 0.47 K/uL (0-0.50) 01/02/23 Basophils # (Auto) 0.05 K/uL (0-0.2) 01/02/23 Immature Granulocyte # (Auto) 0.08 K/uL (0.01-0.20) 3 Na 135 mmol/L (136-145) L 01/02/23 K 4.2 mmol/L (3.5-5.1) 01/02/23 Cl 100 mmol/L (98-107) 01/02/23 CO2 31 mmol/L (21-32) 01/02/23 Anion Gap 4 (3-11) 01/02/23 BUN 11 mg/dl (6-23) 01/02/23 Creatinine 0.86 mg/dl (0.6-1.4) 01/02/23 Estimated GFR ( Amer) 133.0 ml/min 01/02/23 Estimated GFR (Non-Af Amer) 114.7 ml/min 01/02/23 BUN/Creatinine Ratio 12.8 (10-20) 01/02/23 Glu 135 mg/dl (70-99(Fasting)) H 01/02/23 Ca 8.8 mg/dl (8.6-10.3) 01/02/23 Mg 2.0 mg/dl (1.7-2.4) 01/02/23 05:32 Calcium Level 8.8 mg/dl (8.6-10.3) 01/02/23 05:32 Microbiology 01/01/23 Unknown Gram Stain - Final Sputum, Expectorated I & O Totals 24 Hours 01/01/23 01/02/23 01/03/23 06:59 06:59 06:59 Intake Total 1210 / 1210 2300 / 2300 Balance 1210 / 1210 2300 / 2300 Cumulative 01/01/23 03:06 thru 01/02/23 06:23 Intake Total 3510 Balance 3510 RT Ventilator Mngmt (Last Documented) Ventilator Ordered Settings Respiratory Rate 20 01/02/23 07:31 Fraction of Inspired Oxygen 21 01/01/23 15:16 Ventilator - PT Measurements Respiratory Rate 20 PG Care Time/CCT Total # of Minutes Spent Total Time Spent with Patient: Total time spent is greater than 50% in coordination of care (as documented) at patient's floor/unit and/or counseling patient: Coding Level of Care Code 67743 SUB INP/OBS CARE 3/50MIN Diagnoses Pneumonia J18.9 Hemoptysis R04.2 Obstructive sleep apnea G47.33
[2023-01-02 09:29] LABS: Base Excess ABG 4.2 mEq/L (-9-1.8); HCO3 ABG 29 mmol/L (19-24); Oxygen Saturation ABG 99.1 % (90-95); PCO2 ABG 44 mmHg (35-46); PO2 ABG 85 mmHg (80-95); pH ABG 7.43 (7.35-7.45)
[2023-01-02 09:30] LABS: Allen Test Pos (Pos)
[2023-01-02] MEDS: levoFLOXacin/D5W 750 MG/150 ML BAG IV SCH (10:04)
[2023-01-02] MEDS: allopurinoL 300 MG TAB PO SCH (10:45)
--- NOTE | 2023-01-02 11:58 | Electrocardiogram Report ---
Test Reason : Blood Pressure : / mmHG Vent. Rate : 098 BPM Atrial Rate : 098 BPM P-R Int : 146 ms QRS Dur : 086 ms QT Int : 346 ms P-R-T Axes : -16 074 053 degrees QTc Int : 441 ms Normal sinus rhythm Normal ECG When compared with ECG of 01-JAN-2023 03:33, No significant change was found Confirmed by Julio Lyn [id number] on 01/02/2023 11:57:58 AM Referred By: Becki Porter Confirmed By:Julio Lyn
--- NOTE | 2023-01-02 14:04 | Discharge Summary ---
Date of Service January 02, 2023 Admission HPI Per Admitting Provider This is a 32-year-old male with past medical history significant for mixed rhinitis, nasal polyps, obstructive sleep apnea, on CPAP. Currently, he is trying to get a new sleep study and currently not using CPAP machine, morbid obesity, presents with shortness of breath and hemoptysis. The patient was here in the ER yesterday with right flank pain and workup with CT abdomen and pelvis, which was negative for any renal lesions, but showed right lower lobe pneumonia and he was discharged on doxycycline. The patient has recently had cough and congestion and was treated with 1 week of prednisone. He says it did not help much. Denies any fevers. He also had chest pain along with right flank pain started yesterday, he thinks this could be from the coughing, mild in nature. Has headache. No blurred visions, no earache. Has some runny nose. No sore throat. No abdominal pain. . He has recently started semaglutide shots for weight loss,abot a t week ago and since then he is micturating a lot . Say since discharged from the ER yesterday, going home, he was coughing up a lot of blood clots, In the Er he says he coughed up little bit. In the ER while sleeping, desaturated to 88%, requiring oxygen Admission Exam Per Admitting Provider GENERAL: The patient is morbidly obese Not in acute distress. VITAL SIGNS: Temperature 36.8, pulse 84, respiratory rate 20, blood pressure 131/75 oxygen 92% on 3 L. HEENT: Pupils equal, round and reactive to light. Oral mucosa moist. NECK: No JVD, no neck masses. CARDIOVASCULAR: S1 and S2 heard. Regular rate and rhythm. No murmur, no gallop. RESPIRATORY SYSTEM: Normal AP diameter. No accessory muscle use. No wheezing or crackles. ABDOMEN: Soft, bowel sounds present, nontender, no distention. CENTRAL NERVOUS SYSTEM: Alert and oriented. Speech is clear and nonfocal. EXTREMITIES: No edema, no erythema. Principal Diagnosis Multifocal pneumonia Hemoptysis Discharge Exam Constitutional: Alert, oriented x3. Morbid obesity. Respiratory: Bilateral clear breath sound. Cardiovascular: RRR, no murmur, no edema Vessels: no JVD or carotid bruit Chest: normal inspection of chest Abdomen: normal bowel sounds, soft, nontender, no hepatosplenomegaly Musculoskeletal: no cyanosis or clubbing, extremities motor strength 5/5 Skin: no rashes, warm and dry normal turgor Neurologic: PERRL, EOMI, accommodation nl, no face palsy, no dysarthria CN's II- XI intact bilaterally and moves all extremities Psychiatric: A+Ox3, euthymic affect Lymphatic: no cervical or axillary lymphadenopathy : deferred Discharge Data Allergies Allergy/AdvReac Type Severity Reaction Status Date / Time amoxicillin Allergy Intermediate Redness of Verified 01/01/23 19:44 Skin cefprozil Allergy Intermediate Redness of Verified 01/01/23 19:44 Skin clarithromycin Allergy Intermediate Redness of Verified 01/01/23 19:44 Skin Penicillins Allergy Intermediate Redness of Verified 01/01/23 19:44 Skin Consultations 01/01/23 05:54 ED Decision to Admit Stat 01/01/23 10:27 Consult Pulmonology Routine Ordered Studies 01/01/23 03:27 CT angio chest PE protocol Stat Diabetes Follow up Diabetes Follow-up Needed for Newly Diagnosed Diabetes Hospital Course (1) Pneumonia: Patient is a 32 yr male who presents to the ED with shortness of breath and hemoptysis. In the ED, he was found to be desaturated to 88% in room air. CTA chest was done which did not show PE. He was found to have multifocal airway opacities with pneumonia with reactive hilar and mediastinal lymphadenopathy. Patient was admitted to telemetry floor. He was started on IV antibiotics with Levaquin, antitussives and pulmonology was consulted. Pulmonology recommended Levaquin total of 5 days. Also recommended, sleep study as outpatient. Patient supplemental oxygen requirement decreased during the course of the hospitalization. He was discharged home on course of Levaquin. Two-step oxygen evaluation was done. He did not require any supplemental oxygen. He was found to have A1c of 6.8%. Recommended to continue semaglutide. Also recommend to follow up with pcp a for sleep study. Please note the above document was generated using voice recognition software. It may contain grammatical, syntax or spelling errors. Any formal questions or concerns about the content, text or information contained within the body of this dictation should be directly addressed to the provider for clarification Total Time Total Time Spent Total Time Spent (In Minutes): 45 Total Time Includes: Examination of the Patient, Discharge Planning, Medication Reconciliation, Communication With Other Providers and Other Discharge Plan Discharge Items Patient Disposition: Home - Self-Care Reason For Visit: SOB Discharge Diagnosis: Multifocal pneumonia Activity: Resume your previous activity Non-emergency contact: Primary Care Provider Call non-emergency contact if: you have any medication questions and your symptoms worsen Follow-up/Referrals: Becki Porter DO [Primary Care Provider] - (Date & Time 01/05/2023 1:20 PM Provider Becki Porter DO Department [facility] ) Diet: Regular Addtl Attending Provider Instructions: You were admitted to the hospital with multifocal pneumonia. You are treated with antibiotic during your hospitalization. You are prescribed levofloxacin 750 mg to be taken once daily for 4 more days starting tomorrow. Please follow-up with your primary care doctor as scheduled. Discussed followin) you were found to have type 2 diabetes mellitus. Your A1c was 6.8 %. Please continue Wegovy which is also an antidiabetic medication. Please follow diabetic diet. 2) please discuss regarding sleep study for obstructive sleep apnea. Please obtain referral with sleep medicine. Pending Studies at Discharge: No Stand-Alone Forms: [facility] [employer], Smoking Cessation Medications and DC Order Prescriptions: New dextromethorphan-guaifenesin 5-100 mg/5 mL liquid 10 ml PO Q8H PRN (Reason: cough) Qty: 118 0RF levofloxacin 750 mg tablet 750 mg PO DAILY 4 Days Qty: 4 0RF Continued azelastine 137 mcg (0.1 %) aerosol,spray 2 spray INTRANASAL BID fluticasone propionate 50 mcg/actuation spray,suspension 2 spray INTRANASAL DAILY ibuprofen [Advil] 200 mg Tablet 400 mg PO Q6H PRN (Reason: Pain) albuterol sulfate 90 mcg/actuation Hfa Aerosol Inhaler 2 puff INHALATION Q4H PRN (Reason: Shortness Of Breath) omeprazole 40 mg capsule,delayed release(DR/EC) 40 mg PO DAILYBB allopurinol 300 mg tablet 300 mg PO QAM Wegovy 0.25 mg/0.5 mL pen injector 0.25 mg SUBCUT WK Rx Instructions: MONDAYS---STARTED 12/26/22. Discontinued prednisone 20 mg tablet 0 mg PO DAILY Rx Instructions: STARTED 12/19/22 FOR 12 DAYS. 60 MG X 3 DAYS, 40 MG X 3 DAYS, 20 MG X 3 DAYS, THEN 10 MG X 3 DAYS. indomethacin 75 mg Capsule, Extended Release 75 mg PO DAILY doxycycline hyclate 100 mg tablet 100 mg PO BID 7 Days Qty: 14 0RF Discharge Orders: Discharge Order (Routine); Ordered 01/02/23 Ordered By: Rojas Duarte/Other Patient Handouts: Exercise: Why Fitness Matters, Diabetes: Meal Planning, Type 2 Diabetes Admission Data Admit Date/Time: 01/01/23 06:25 Attending Provider: Rojas Bertrand Admit Provider: Deepak Francis Primary Care Provider: Becki Porter Other Providers: Deepak Francis ; Marci Radford Satish Kumar
== END 2023-01-02 18:59 | disposition home or self-care (01) | DRG 193 ==
LOC: ED 03:06 → EDINP 06:25 → SUATTDRO 06:25 → 2N 13:52

== ENCOUNTER 2023-07-05 11:54 | Inpatient (IN) ==
[2023-07-05 12:36] LABS: Basophils # (auto) 0.04 K/uL (0.00-0.20); Basophils % (auto) 0.5 %; Eosinophils # (auto) 0.19 K/uL (0.00-0.50); Eosinophils % (auto) 2.2 %; Hematocrit (blood only) 44.9 % (42.0-52.0); Hemoglobin 15.5 g/dl (14.0-18.0); Immature Granulocytes # (auto) 0.02 K/uL (0.01-0.20); Immature Granulocytes % (auto) 0.2 %; Lymphocytes # (auto) 2.47 K/uL (1.20-3.40); Lymphocytes % (auto) 28.4 %; Mean Corpuscular Hemoglobin 27.2 pg (25.0-34.0); Mean Corpuscular Hgb Conc 34.5 g/dL (32.0-36.0); Mean Corpuscular Volume 78.9 fL (80.0-100.0); Mean Platelet Volume 9.5 fL (9.4-12.4); Monocytes % (auto) 6.9 %; Neutrophils # (auto) 5.37 K/uL (1.40-6.50); Neutrophils % (auto) 61.8 %; Platelet Count 261 K/uL (130-400); RDW Coefficient of Variation 13.5 % (11.5-14.5); RDW Standard Deviation 38.4 fL (36.4-46.3); Red Blood Count 5.69 M/uL (4.70-6.10); White Blood Count 8.69 K/ul (4.8-10.8)
--- NOTE | 2023-07-05 12:50 | XRay Report ---
SINGLE VIEW CHEST CLINICAL HISTORY: Chest tightness. Cough and dyspnea FINDINGS: A PA chest radiograph is compared to study dated 12/31/2022 and correlated with chest CT win ed 01/01/2023. The cardiomediastinal silhouette is top normal for projection. There is mild bibasilar atelectasis. The lungs and pleural spaces are otherwise clear. No pneumothorax is seen. The bony thor ax is grossly intact. IMPRESSION: No acute cardiopulmonary abnormality is identified. ACT 112: Negative or not required by law. Electronically signed by: Júnior Esqueda M.D. 07/05/2023 12:49 PM
[2023-07-05 13:01] LABS: Albumin Globulin Ratio 1.4 (0.9-2); Albumin Level 4.3 gm/dl (3.4-5.0); BUN Creatinine Ratio 13.5 (10-20); Bilirubin,Total 0.7 mg/dl (0.2-1.0); Calcium 9.8 mg/dl (8.6-10.3); Creatinine Clr Calc Pharmacy 209.2 ml/min; Est GFR (African American) 141.5 ml/min; Est GFR (Non-African American) 122.1 ml/min; Globulin 3.1 gm/dl (2.5-4.0); Potassium 4.1 mmol/L (3.5-5.1); Total Protein 7.4 gm/dl (6.0-8.3)
[2023-07-05 13:18] LABS: Influenza A virus by PCR Negative (Neg); Influenza B virus by PCR Negative (Neg); RSV by PCR Negative (Neg)
[2023-07-05] MEDS ORDERED: SODIUM CHLORIDE 0.9% 1,000 ML IV ONE ×2 (13:20→13:31)
[2023-07-05] MEDS ORDERED: ALBUTEROL HFA 8 GM INHALER INH ONE (13:20)
[2023-07-05 13:23] LABS: SARS CoV2 RNA(COVID-19) Ceph POSITIVE (Negative)
--- NOTE | 2023-07-05 13:39 | Emergency Department Note ---
Impression & Plan Acute hyperglycemia, Acute dehydration, Flu-like symptoms, Dyspnea, COVID-19 ED Provider Note NAME: GISELLE MORTON AGE: 32 SEX: M : 1990 ARRIVES VIA: Walk-In INFORMANT: [Patient] ED PROVIDER(S): [Júnior Frausto MD] CHIEF COMPLAINT: Shortness of breath, fatigue HISTORY OF PRESENT ILLNESS: The patient is a 32-year-old male who was told that he may have early diabetes. He states his A1c was below the cutoff. The patient states that for the last 5 days, he has been fatigued, with body aches, cough and some shortness of breath. He has had nausea without vomiting. No diarrhea. He has been quite thirsty and he drinks all the time and is urinating quite a bit. The patient states that he thinks he actually may have COVID as his girlfriends daughter tested positive last week. The patient has not yet been tested. The patient did have a low-grade temperature a few times, the fever was controllable with some txkx-fev-yimeler meds. The patient states that recently, he had some blood work done and he was told that his A1c was high, this was a change from the initial A1c value. The patient states that in addition, he has noticed an itchy rash to the left groin, he thinks he may have a yeast infection. PMHx/PSHx/Social Hx: See Below PHYSICAL EXAM: GENERAL: Patient is in no acute distress. HEENT: No acute trauma, normocephalic atraumatic, mucous membranes moist, no nasal congestion. NECK: No stridor, no adenopathy, no meningismus, trachea is midline. LUNGS: Clear to auscultation bilaterally, no wheeze, no rhonchi, breath sounds equal. Dry cough noted. HEART: Mildly tachycardic, regular rhythm, no murmurs. ABDOMEN: Soft, nontender, no peritonitis. EXTREMITIES: No cyanosis, full range of motion of all the joints without pain or difficulty. NEUROLOGIC: Oriented x 3, no acute motor or sensory deficits, no focal weakness. SKIN: No jaundice, no diaphoresis. Patient does have an erythematous, somewhat patchy rash to the left groin crease consistent with tinea. A few satellite lesions were seen. DIFFERENTIAL DIAGNOSIS: DKA, dehydration, electrolyte imbalance, UTI, pneumonia, viral illness, COVID- 19, among others. EMERGENCY DEPARTMENT PROCEDURES: MEDICAL DECISION MAKING: There is no leukocytosis or concerning anemia. There is a normal platelet count. Sodium was somewhat low at 132. No renal failure. Glucose was high at over 460. No concerning liver enzyme elevation. ECG showed a sinus tachycardia, no obvious ischemia. Cardiac enzyme testing x1 was not consistent with acute cardiac injury. Urinalysis showed ketones and glucose, no obvious infection. COVID testing returned positive. Influenza and RSV test returned negative. Chest x-ray did not show mediastinal widening or pneumonia. On exam, the patient was tachycardic. He did have a left groin tinea infection. He was quite hyperglycemic. Patient is very likely dehydrated. His sugar has escalated significantly, possibly from his COVID infection. He is drinking continuously and urinating continuously. The patient received albuterol via MDI, he was given 2 L of IV saline. Given his complaints and findings, I do think a hospital stay would be warranted. He will require further hydration as well as treatment to better control his hyperglycemia. I did speak with the patient and case management, the on-call hospitalist was consulted. Prior/Outside records/notes reviewed: Discharge summary from 01/02/2023 discussing his admission for multifocal pneumonia. ECG per my interpretation: Indication was shortness of breath. The ECG shows a sinus tachycardia with a rate of 108. There is some nonspecific ST change and some baseline artifact. There is no ST elevation, no PVCs. The QTc is 442. Continuous Cardiac Monitoring per my interpretation: An order was placed for continuous cardiac monitoring. The monitor shows a rate of 102 with sinus tachycardia. Imaging/x-ray results per my interpretation: Chest x-ray per my review does not show mediastinal widening, pneumonia or pneumothorax. Chronic Medical/Social conditions affecting care: Obesity. Care/Management discussed with: Case management, the on-call hospitalist. Level of care consideration(s): After review of the information above and other included data: --I believe the patient requires escalation of care to admission DISPOSITION: Admission Past Med/Surg History Medical History Obstructive sleep apnea Morbid obesity Morbid obesity with BMI of 50.0-59.9, adult ADHD Carpal tunnel syndrome on both sides Rectal bleeding Sleep apnea CPAP Surgical History History of foot surgery History of facial surgery reconstructive facial surgery History of tonsillectomy History of appendectomy Family History Other Diabetes Heart disease No family history of adverse response to anesthesia Social History Smoking Status: Never smoker Tobacco Type: Smokeless Tobacco (Dip or Chew) Second Hand Exposure: Yes; Do You Dip or Chew Tobacco: Yes; Hx Alcohol Use: No Hx Substance Use: No Preferred Language: [place] Leonean Communication Ability: Effective Auto Mechanics Instructor Required: No Beliefs That Will Affect Care: None Current Living Situation: Alone Feels Safe at Home: Yes Assistive Devices: None Allergies Allergies Allergy/AdvReac Type Severity Reaction Status Date / Time amoxicillin Allergy Intermediate Redness of Verified 03/24/23 21:06 Skin cefprozil Allergy Intermediate Redness of Verified 03/24/23 21:06 Skin clarithromycin Allergy Intermediate Redness of Verified 03/24/23 21:06 Skin Penicillins Allergy Intermediate Redness of Verified 03/24/23 21:06 Skin Home Meds Home Medications Medication Instructions Recorded Confirmed ibuprofen 200 mg tablet (Advil) 400 mg PO Q6H PRN Pain 12/12/21 07/05/23 albuterol sulfate 90 mcg/actuation 2 puff inhalation Q4H PRN 02/24/22 07/05/23 aerosol inhaler Shortness Of Breath azelastine 137 mcg (0.1 %) nasal 2 spray intranasal BID 02/26/22 07/05/23 spray aerosol fluticasone propionate 50 2 spray intranasal DAILY 02/26/22 07/05/23 mcg/actuation nasal spray,suspension allopurinol 300 mg tablet 300 mg PO QAM 12/30/22 07/05/23 omeprazole 40 mg capsule,delayed 40 mg PO DAILYBB 12/30/22 07/05/23 release Results & Data (ED) Vital Signs Vital Signs - 24 hr 07/05/23 12:08 07/05/23 13:37 07/05/23 13:38 Temperature 36.4 C L 36.9 C Temperature Source Temporal Artery Scan Oral Pulse Rate 91 H 103 H Pulse Rate [Right Finger] 96 H Respiratory Rate 18 16 Respiratory Effort / Characteristics Non-Labored Spontaneous Labored Short of Breath Respiratory Depth Normal Normal Respiratory Pattern Regular Blood Pressure 157/99 H Blood Pressure [Right Arm] 133/110 H Blood Pressure Mean 118 Blood Pressure Mean [Right Arm] 117 Blood Pressure Position Sitting Blood Pressure Position [Right Arm] Lying Pulse Oximetry 96 93 Oxygen Delivery Method Room Air Room Air Sepsis Recent Fever Within 48 Hours No Sepsis New/Unexplained Change in Mental Status N/A Sepsis Action Taken by Nursing No Action Required 07/05/23 13:41 Temperature Temperature Source Pulse Rate Pulse Rate [Right Finger] Respiratory Rate Respiratory Effort / Characteristics Respiratory Depth Respiratory Pattern Blood Pressure Blood Pressure [Right Arm] Blood Pressure Mean Blood Pressure Mean [Right Arm] Blood Pressure Position Blood Pressure Position [Right Arm] Pulse Oximetry 93 Oxygen Delivery Method Room Air Sepsis Recent Fever Within 48 Hours Sepsis New/Unexplained Change in Mental Status Sepsis Action Taken by Prison Medications Current Medication List: was personally reviewed by me Laboratory Data Attestation: I reviewed the patient's lab results. 07/05/23 12:16 07/05/23 12:16 Lab Results 07/05/23 07/05/23 Range/Units 12:11 12:16 WBC 8.69 (4.8-10.8) K/ul RBC 5.69 (4.70-6.10) M/uL Hgb 15.5 (14.0-18.0) g/dl Hct 44.9 (42.0-52.0) % MCV 78.9 L (80.0-100.0) fL MCH 27.2 (25.0-34.0) pg MCHC 34.5 (32.0-36.0) g/dL RDW Std Deviation 38.4 (36.4-46.3) fL RDW Coeff of Samson 13.5 (11.5-14.5) % Plt Count 261 (130-400) K/uL MPV 9.5 (9.4-12.4) fL Immature Gran % (Auto) 0.2 % Neut % (Auto) 61.8 % Lymph % (Auto) 28.4 % [place] % (Auto) 6.9 % Eos % (Auto) 2.2 % Baso % (Auto) 0.5 % Neut # (Auto) 5.37 (1.40-6.50) K/uL Lymph # (Auto) 2.47 (1.20-3.40) K/uL Carolina # (Auto) 0.60 H (0.11-0.59) K/uL Eos # (Auto) 0.19 (0.00-0.50) K/uL Baso # (Auto) 0.04 (0.00-0.20) K/uL Immature Gran # (Auto) 0.02 (0.01-0.20) K/uL Sodium 132 L (136-145) mmol/L Potassium 4.1 (3.5-5.1) mmol/L Chloride 94 L (98-107) mmol/L Carbon Dioxide 29 (21-32) mmol/L Anion Gap 9 (3-11) BUN 10 (6-23) mg/dl Creatinine 0.74 (0.6-1.4) mg/dl Est Cr Clr Drug Dosing 209.2 ml/min Est GFR ( Amer) 141.5 ml/min Est GFR (Non-Af Amer) 122.1 ml/min BUN/Creatinine Ratio 13.5 (10-20) Glucose 463 H* (70-99(Fasting)) mg/dl Estimat Average Glucose 341 mg/dl Hemoglobin A1c 13.5 H (4.5-5.6) % Calcium 9.8 (8.6-10.3) mg/dl Total Bilirubin 0.7 (0.2-1.0) mg/dl AST 15 (13-39) U/L ALT 15 (7-52) U/L Alkaline Phosphatase 115 H (34-104) U/L Troponin I High Sens 4.3 (0-20) pg/ml Total Protein 7.4 (6.0-8.3) gm/dl Albumin 4.3 (3.4-5.0) gm/dl Globulin 3.1 (2.5-4.0) gm/dl Albumin/Globulin Ratio 1.4 (0.9-2) SARS-CoV-2 (PCR) POSITIVE A* (Negative) Influenza Type A (PCR) Negative (Neg) Influenza Type B (PCR) Negative (Neg) RSV (RT-PCR) Negative (Neg) Administered Medications Doxycycline Hyclate (Doxycycline Hyclate 100 Mg Cap) 100 mg PO Q12H CHAD Stop: 07/12/23 15:59 Last Admin: 07/05/23 16:39 Dose: 100 mg Documented By: CPB Remdesivir 200 mg/ Sodium (Chloride) 250 mls @ 125 mls/hr IV NOW ONE; Protocol Stop: 07/05/23 17:59 Last Admin: 07/05/23 15:47 Dose: 125 mls/hr Documented By: CPB Discontinued Medications Albuterol (Albuterol Hfa 8 Gm Inhaler) 2 puffs INH NOW ONE Stop: 07/05/23 13:21 Last Admin: 07/05/23 13:28 Dose: 2 puffs Documented By: CPB Fluconazole (Fluconazole 50 Mg Tab) 150 mg PO NOW ONE Stop: 07/05/23 15:31 Last Admin: 07/05/23 16:39 Dose: 150 mg Documented By: CPB Sodium Chloride (Nss) 1,000 mls @ 999 mls/hr IV .Q1H1M ONE Stop: 07/05/23 14:20 Last Infusion: 07/05/23 16:37 Dose: Infused Documented By: Admin: 07/05/23 13:30 Dose: 999 mls/hr Documented By: CPB Sodium Chloride (Nss) 1,000 mls @ 999 mls/hr IV .Q1H1M ONE Stop: 07/05/23 14:31 Last Infusion: 07/05/23 16:37 Dose: Infused Documented By: Admin: 07/05/23 14:18 Dose: 999 mls/hr Documented By: CPB Doxycycline Hyclate 100 mg/ (Dextrose) 100 mls @ 50 mls/hr IV Q12H CHAD Stop: 07/12/23 14:29 Last Admin: 07/05/23 16:37 Dose: Not Given Documented By: MOISES Insulin Glargine (Lantus Per Unit Charge) 45 units SC NOW ONE Stop: 07/05/23 15:01 Last Admin: 07/05/23 15:49 Dose: 45 units Documented By: CPB Co-signed By: MOISES Imaging Data Radiologist's Impression: Chest X-Ray 07/05/23 12:12 SINGLE VIEW CHEST CLINICAL HISTORY: Chest tightness. Cough and dyspnea FINDINGS: A PA chest radiograph is compared to study dated 12/31/2022 and correlated with chest CT dated 01/01/2023. The cardiomediastinal silhouette is top normal for projection. There is mild bibasilar atelectasis. The lungs and pleural spaces are otherwise clear. No pneumothorax is seen. The bony thorax is grossly intact. IMPRESSION: No acute cardiopulmonary abnormality is identified. ACT 112: Negative or not required by law. Electronically signed by: Júnior Esqueda M.D. 07/05/2023 12:49 PM Discharge Plan Visit Data Chief Complaint: Shortness of Breath/Dyspnea Stated Complaint: SOB, COUGH, WEAKNESS, GROIN PAIN ED Provider: Júnior Frausto Discharge Problem: Acute hyperglycemia, Acute dehydration, Flu-like symptoms, Dyspnea, COVID-19 Patient Disposition: Admitted As Inpatient Condition: Fair Discharge Instructions Interventions: ED Discharge Assessment Last Done: 07/05/23 15:07 Discharge Problem: Dyspnea Qualifiers: Dyspnea type: shortness of breath Qualified Code(s): R06.02 - Shortness of breath
--- NOTE | 2023-07-05 14:09 | History & Physical Report ---
Date of Service July 05, 2023 Assessment & Plan (1) COVID-19: (2) Obstructive sleep apnea: (3) Morbid obesity: (4) Uncontrolled diabetes mellitus with hyperglycemia: Plan This is a 32yo M with a PMH of recently diagnosed DM II, morbid obesity, childhood asthma, MANI not on CPAP who presents with ongoing cough and malaise for the past week who presents with covid 19 as well as hyperglycemia in setting of uncontrolled newly diagnosed DM II. Hyperglycemia Newly diagnosed DM II Increased thirst, a1c of 12.8 on June 30, started on Metformin 500mg daily. Also prescribed Trulicity but just received insurance auth, has not yet started Initial BSG 463 today -> 412 after 2L NCC No anion gap, UA pending for ketones Given 45u glargine in ED Glycemic consulted, appreciate help with mgmt certified diabetes educator consulted Continue counseling on importance of weight loss, following with Nutrition & Weight Mgmt as outpatient Covid 19 Exposed to child last week, developed sx on 06/30 Last fever on 07/04, continues to feel congested, having myalgias and SOB with coughing. 93% on RA CXR without acute process Starting remdesivir, doxy for possible secondary bacterial infxn Holding off on steroids as patient not oxygen requiring, already has uncontrolled BSG as above Duonebs QID PRN, antitussives Morbid obesity BMI 49.5 Following with Nutrition & Weight Mgmt MANI not on CPAP Agreeable to use cpap again, awaiting new home mask Rash in groin Fungal infection 2/2 uncontrolled DM II, obesity Started on miconazole, nystatin BID DVT Ppx: SQ lovenox Code status: FULL PCP: [place] Dispo: Admitted to [facility] tele Patient seen in collaboration with Dr. Carter. Please see addendum. History of Present Illness Primary Care Provider: Becki Porter, DO This is a 32yo M with a PMH of recently diagnosed DM II, morbid obesity, childhood asthma, MANI not on CPAP who presents with ongoing cough and malaise for the past week. Last Monday, patient's daughter tested positive for covid on 06/29 and patient developed symptoms on 06/30 with cough, congestion and sinus pressure. Had a fever of 103 F 3 days ago but not since then. Has been sleeping a lot and still feels congested and sore from coughing and still having joint aches. Not short of breath unless he is in the midst of a coughing fit, which happened overnight. Has been following with Nutrition & Weight and was on Wegovy previously. On June 30, told provider he had increased thirst and a1c was 12.8 and was started on Metformin 500mg daily. Also prescribed Trulicity but just received insurance approval earlier today so has not started. Has felt increasing thirst as well as increased urination over the past week, which was in part the reason for presenting to the ED. Currently patient feels rundown and achy, still thirsty. Denies any lightheadedness, chest pain, nausea, vomiting, abdominal pain, dysuria, diarrhea or constipation. Does endorse a red and itchy rash in groin area that feels like a yeast infection, per patient. Allergies Allergy/AdvReac Type Severity Reaction Status Date / Time amoxicillin Allergy Intermediate Redness of Verified 03/24/23 21:06 Skin cefprozil Allergy Intermediate Redness of Verified 03/24/23 21:06 Skin clarithromycin Allergy Intermediate Redness of Verified 03/24/23 21:06 Skin Penicillins Allergy Intermediate Redness of Verified 03/24/23 21:06 Skin Home Medications Medication Instructions Recorded Confirmed Type ibuprofen 200 mg tablet (Advil) 400 mg PO Q6H PRN Pain 12/12/21 07/05/23 History albuterol sulfate 90 mcg/actuation 2 puff inhalation Q4H PRN 02/24/22 07/05/23 History aerosol inhaler Shortness Of Breath azelastine 137 mcg (0.1 %) nasal 2 spray intranasal BID 02/26/22 07/05/23 History spray aerosol fluticasone propionate 50 2 spray intranasal DAILY 02/26/22 07/05/23 History mcg/actuation nasal spray,suspension allopurinol 300 mg tablet 300 mg PO QAM 12/30/22 07/05/23 History omeprazole 40 mg capsule,delayed 40 mg PO DAILYBB 12/30/22 07/05/23 History release Past Med/Surg History Medical History Obstructive sleep apnea Morbid obesity Morbid obesity with BMI of 50.0-59.9, adult ADHD Carpal tunnel syndrome on both sides Rectal bleeding Sleep apnea CPAP Surgical History History of foot surgery History of facial surgery reconstructive facial surgery History of tonsillectomy History of appendectomy Family History Other Diabetes Heart disease No family history of adverse response to anesthesia Social History Smoking Status: Never smoker Tobacco Type: Smokeless Tobacco (Dip or Chew) Second Hand Exposure: Yes; Do You Dip or Chew Tobacco: Yes; Hx Alcohol Use: No Hx Substance Use: No Preferred Language: Indonesian Communication Ability: Effective Local Truck Driver Required: No Beliefs That Will Affect Care: None Current Living Situation: Alone Feels Safe at Home: Yes Assistive Devices: None Review of Systems Review of Systems: At least ten systems reviewed and negative except as noted in the HPI. Physical Exam Physical Exam: Please see Dr. Carter's addendum for physical exam. Results & Data Results & Data Vital Signs (Past 12 Hours) Vital Signs Temp Pulse Pulse Resp BP BP Pulse Ox 07/05/23 13:41 93 07/05/23 13:38 36.9 C 96 H 16 133/110 H 93 07/05/23 13:37 103 H 07/05/23 12:08 36.4 C L 91 H 18 157/99 H 96 O2 Del Method 07/05/23 13:41 Room Air 07/05/23 13:38 Room Air 07/05/23 13:37 07/05/23 12:08 Room Air Laboratory Results Short CBC 07/05/23 Range/Units 12:16 WBC 8.69 (4.8-10.8) K/ul Hgb 15.5 (14.0-18.0) g/dl Hct 44.9 (42.0-52.0) % Plt Count 261 (130-400) K/uL BMP 07/05/23 12:16 Sodium 132 L Potassium 4.1 Chloride 94 L Carbon Dioxide 29 BUN 10 Creatinine 0.74 Glucose 463 H* Calcium 9.8 Liver Function 07/05/23 Range/Units 12:16 Total Bilirubin 0.7 (0.2-1.0) mg/dl AST 15 (13-39) U/L ALT 15 (7-52) U/L Alkaline Phosphatase 115 H (34-104) U/L Albumin 4.3 (3.4-5.0) gm/dl Diagnostic Findings Chest X-Ray 07/05/23 12:12 SINGLE VIEW CHEST CLINICAL HISTORY: Chest tightness. Cough and dyspnea FINDINGS: A PA chest radiograph is compared to study dated 12/31/2022 and correl ated with chest CT dated 01/01/2023. The cardiomediastinal silhouette is top normal for projection. There is mild bibasilar atelectasis. The lungs and pleural spaces are otherwise clear. No pneumothorax is seen. The bony thorax is grossly intact. IMPRESSION: No acute cardiopulmonary abnormality is identified. ACT 112: Negative or not required by law. Electronically signed by: Júnior Esqueda M.D. 07/05/2023 12:49 PM Supervising Physician Co-Signing Physician Notes Patient is a 38-year-old male with history of diabetes mellitus, morbid obesity, obstructive sleep apnea intolerant to CPAP multiple medical problems presents with history of ongoing cough associated with malaise, congestion, sinus pre ssure, fever, arthralgia. Also admits to having increased thirst. Reports having groin erythema associated with itching. Please review HPI for complete details of presentation. I personally reviewed imaging studies, blood work, EKG. He was noted to be hyperglycemic 463 while in ED. Serology positive for COVID. BioFire pending. Chest x-ray showed no acute findings. Saturating well on room air. Physical Exam: Vitals signs as noted above General Appearance:Morbid Obesity, no apparent distress Head: normocephalic, Atraumatic Eyes: normal inspection, EOMI Neck: supple, Trachea midline Respiratory/Chest: Decreased breath sounds, CTA, No accessory muscle use Cardiovascular: S1, S2, No murmur, +Tachycardia Abdomen/GI:Soft, Non tender, Bowel sounds present Extremities/Musculoskeletal:normal inspection, no edema : Groin erythema Neurologic/Psych:AAOX3, grossly no focal neurological deficits Skin: normal color, warm CVOID 19 Infection CXR wnl Biofire pending Agrees to be started on remdesivir No steroids for now unless develops hypoxia Empirically started on doxycycline Check procalcitonin DM II Uncontrolled Started on sq insulin We will consider insulin drip if needed Glycemic pharmacist consulted Suspected Tinea Cruris Started on fluconazole Agree with miconazole cream twice daily HTN No known history of hypertension Likely situational Monitor BP and will consider to start antihypertensives if needed Hyponatremia Secondary to hyperglycemia Monitor sodium levels Morbid obesity BMI 49 I personally reviewed the record. Patient is interviewed and examined at bedside. Patient's care is coordinated with Jenn Lao PA-C. Please refer to the documentation above for details of patient's presentation and for discussion of other issues.
[2023-07-05] MEDS ORDERED: PHARMACY GLYCEMIC MGMT CONSULT PRN (14:14)
[2023-07-05] MEDS ORDERED: GLUCOSE 40% GEL 15 GM TUBE PO PRN (14:17)
[2023-07-05] MEDS ORDERED: CARBOHYDRATES FOR HYPOGLYCEMIA PO PRN (14:17)
[2023-07-05] MEDS ORDERED: DEXTROSE 50% 50 ML SYRINGE IV PRN (14:17)
[2023-07-05] MEDS ORDERED: GLUCOSE 10 TAB/TUBE PO PRN (14:17)
[2023-07-05] MEDS ORDERED: GLUCAGON FOR INJ 1 MG VIAL SQ PRN (14:17)
[2023-07-05] MEDS ORDERED: ALBUT/IPRATROP 3MG/0.5MG NEB 3 ML VIAL NEB PRN (14:22)
[2023-07-05] MEDS ORDERED: guaiFENesin SUGAR FREE 100 MG/5 ML UDC PO PRN (14:22)
[2023-07-05] MEDS ORDERED: BENZONATATE 100 MG CAPSULE PO PRN (14:22)
[2023-07-05] MEDS ORDERED: guaiFENesin SUGAR FREE 100 MG/5 ML UDC PO STA (14:22)
[2023-07-05] MEDS ORDERED: NYSTATIN CR 15 GM TUBE EXT PRN (14:26)
[2023-07-05 14:27] LABS: Estimated Average Glucose 341 mg/dl; Hemoglobin A1C 13.5 % (4.5-5.6)
[2023-07-05] MEDS ORDERED: DOXYCYCLINE HYCLATE 100 MG in DEXTROSE 5% MINI-B 100 ML IV SCH (14:30)
[2023-07-05] MEDS ORDERED: LANTUS PER UNIT CHARGE SC ONE (15:00)
[2023-07-05 15:04] LABS: Appearance Urine Clear (Clear); Bacteria Urine Automated Negative (Negative); Bilirubin Urine Negative (Negative); Blood Urine Negative (Negative); Cast Urine Automated 0 /lpf (0-5); Color Urine Yellow; Epithelial Cell Urine Auto 0-5 /lpf (0-5); Glucose Urine UA 3+ (Negative); Ketones Urine 2+ (Negative); Leukocyte Esterase Urine Negative (Negative); Nitrite Urine Negative (Negative); Protein Urine 1+ (Negative); RBC Urine Automated 0-4 /hpf (0-4); Specific Gravity Urine 1.041 (1.000-1.030); Urobilinogen Urine Negative (Negative)
[2023-07-05] MEDS ORDERED: IBUPROFEN 200 MG TAB PO PRN (15:11)
[2023-07-05] MEDS ORDERED: ONDANSETRON INJ 2 MG/ML 2 ML VIAL IV PRN (15:11)
[2023-07-05] MEDS ORDERED: ALBUTEROL HFA 8 GM INHALER INH PRN (15:11)
[2023-07-05] MEDS ORDERED: POLYETHYLENE (MIRALAX) 17 GM PACK PO PRN (15:11)
[2023-07-05] MEDS ORDERED: FLUCONAZOLE 50 MG TAB PO ONE (15:30)
[2023-07-05 15:34] LABS: Adenovirus PCR Not Detected (NotDetected); Bordetella parapertussis PCR Not Detected (NotDetected); Bordetella pertussis PCR Not Detected (NotDetected); Chlamydia pneumoniae PCR Not Detected (NotDetected); Coronavirus 229E PCR Not Detected (NotDetected); Coronavirus HKU1 PCR Not Detected (NotDetected); Coronavirus NL63 PCR Not Detected (NotDetected); Coronavirus OC43PCR Not Detected (NotDetected); Human Metapneumovirus PCR Not Detected (NotDetected); Influenza A PCR Not Detected (NotDetected); Influenza B PCR Not Detected (NotDetected); Mycoplasma pneumoniae PCR Not Detected (NotDetected); Parainfluenza Virus 1 PCR Not Detected (NotDetected); Parainfluenza Virus 2 PCR Not Detected (NotDetected); Parainfluenza Virus 3 PCR Not Detected (NotDetected); Parainfluenza Virus 4 PCR Not Detected (NotDetected); Respiratory Syncytial VirusPCR Not Detected (NotDetected); Rhinovirus/Enterovirus PCR Not Detected (NotDetected)
--- OUTSIDE RECORDS SUMMARY | 2023-07-05 15:47 | External Medical Summary | Summary of Care ---
Author Name Unknown Organization [facility] Address [address] [place] [address] Phone [phone] Care Team Providers Care Conveyor Maintenance Mechanic Name Role Phone Becki Porter DO Primary Care Provider Reason for Visit * Reason Onset Date Comments Letter Requests 06/16/2023 Donate plasma Encounter Details Date Type Department Care Team (Late st Contact Info) Description 06/16/2023 Telephone Family Practice [facility] [address] [place] [phone] Becki Porter DO [address] [address] [place] [id number] Letter Requests (Donate plasma) Allergies Active Allergy Reactions Criticality Noted Date Comments Amoxicillin Hives 04/12/2012 Cefprozil Hives 03/30/2009 Clarithromycin Hives 03/30/2009 documented as of this encounter (statuses as of 06/19/2023) Medications Medication Sig Dispensed Refills Start Date End Date Status Albuterol Sulfate HFA 108 (90 Base) MCG/ACT Inhalation Aerosol SolutionIndications :Bronchitis, complicated Inhale by mouth 2 Puffs every 4 hours as needed for Congestion or Wheezing. 18 g 1 01/16/2022 Active Spacer/Aero-Holding Chambers DeviceIndications:B neena, complicated Use with inhaler. 1 Each 0 01/16/2022 Active Allopurinol 300 MG Oral Tablet (Zyloprim)Indicatio ns:Acute gout of right foot, unspecified cause Take a half tablet by mouth for four weeks, then increase to a full tablet. 30 Tablet 11 09/08/2022 Active Omeprazole 40 MG Oral Capsule Delayed Release (PriLOSEC)Indicatio ns:NSAID long-term use Take 1 Capsule by mouth in the morning. 1 hour before the first meal of the day. 30 Capsule 5 09/08/2022 Active Azelastine HCl 0.1 % Nasal Solution (Astelin)Indication s:Mixed rhinitis Administer 2 Sprays into nostril in the morning and 2 Sprays before bedtime. 30 mL 1 2022 Active Fluticasone Propionate 50 MCG/ACT Nasal Suspension (Flonase)Indication s:Mixed rhinitis Administer 2 Sprays into nostril in the morning. 16 g 1 2022 Active Dextromethorphan-gu aiFENesin 10-100 MG/5ML Oral Syrup Take 5 mL by mouth every 8 hours as needed. 0 01/02/2023 Active documented as of this encounter (statuses as of 06/19/2023) Active Problems Problem Noted Date Diagnosed Date Food insecurity 01/23/2023 Overview: Per [facility] Protocol Body mass index (BMI) of 45.0 to 49.9 in adult 0 09/08/2022 Body mass index (BMI) of 50.0 to 59.9 in adult 0 08/22/2022 Overview: Per Obesity protocol - - MANI on CPAP 08/04/2016 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 Nasal polyps 04/12/2012 documented as of this encounter (statuses as of 06/19/2023) Resolved Problems Problem Noted Date Diagnosed Date Resolved Date Body mass index (BMI) of 45. 0 to 49.9 in adult 11/19/2018 08/25/2022 Overview: Per Obesity protocol #1 - Body mass index (BMI) of 50. 0 to 59.9 in adult 06/27/2017 11/21/2018 Overview: Per Obesity protocol #1 Obesity, morbid (more than 1 00 lbs over ideal weight or BMI > 40) 10/12/2012 06/30/2017 Overview: Per Obesity protocol #1 Other allergic rhinitis 03/04/200903/16 Overview: ICD-10 update of inactive term documented as of this encounter (statuses as of 06/19/2023) Immunizations Name Administration Dates Next Due H1N1 2009 Influenza, IM 09/14/2009 SEASONAL INFLUENZA, PF, 6 M & Above, IM , (FLULAVAL or FLUZONE) 05/25/2017 Seasonal Influenza, Split, IIV3, With Preserve, Inj 07/16/2013,05/04/2012 TDAP (age 10 and older)(Boostrix) 01/16/2022 TDAP (age 11 and older)(Adacel) 12/15/2010 documented as of this encounter Social History Tobacco Use Types Packs/Day Years Used Date Smoking Tobacco: Former Cigarettes Smokeless Tobacco: Current Chew Comments:a can a day Alcohol Use Standard Drinks/Week Comments Yes 0 (1 standard drink = 0.6 oz pur e alcohol) seldom since having daughter PHQ-2 Answer Date Recorded PHQ-2 Score 0 06/17/2018 Hunger Vital Sign Answer Date Recorded Within the past 12 months, y ou worried that your food would run out before you got the money to buy more. Sometimes true Within the past 12 months, t he food you bought just didn't last and you didn't have money to get more. Sometimes true Sex and Gender Information Value Date Recorded Sex Assigned at Male 01/02/2023 12:42 PM EDT Gender Identity Male 01/02/2023 12:42 PM EDT Sexual Orientation Straight 01/02/2023 12 :42 PM EDT Job Start Date Occupation Industry Not on file Not on file Not on file documented as of this encounter Miscellaneous Notes * Telephone Encounter - Rosalie Bosch LPN - 06/19/2023 2:19 PM EST Called and gave message to pt as below, told if wants to make a F/U apt with Dr Porter he can and she can do referral to Sleep Med. * Telephone Encounter - Becki Porter DO - 06/19/2023 9:35 AM EST Pt with untreated MANI - I am not certain how I can write a letter * Telephone Encounter - Diane Villarreal LPN - 06/16/2023 4:02 PM EDT Pt has not seen a sleep provider since 2018. Will defer to PCP * Telephone Encounter - Chari Ambrocio LPN - 06/16/2023 3:50 PM EDT Please review request below-- Is this something that can be constructed by your office per MANI. * Telephone Encounter - Diane Thacker OSA - 06/16/2023 2:51 PM EDT Type of letter requested: plasma donation Does the letter need to provide any specific information: Pt was advised that a letter is required in order to donate plasma due to sleep apnea. Pt hasn't used a CPAP machine for a couple of years, had been seen 12/28/22 by Sleep Disorders, but never been scheduled for sleep study at [facility]. Would you like letter faxed or picked up?: orange picker Fax number: NA Number to be called when ready to be picked up: [phone] Date needed: as soon as possible documented in this encounter Plan of Treatment Upcoming Encounters Date Type Department Care Team (Late st Contact Info) Description 06/30/2023 9:00 AM EST Office Visit Nutrition & Weight Management, [facility] [address] [place] [address] India Garcias PA-C [address] [place] [phone] 08/17/2023 2:30 PM EST Office Visit Ophthalmology, [facility] [address] [place] [address] Kenan Caceres DO [address] [facility] [place] [phone] Scheduled Procedures Name Priority Associated Diagnoses Date/Ti me COLONOSCOPY FLEXIBLE PROXIMA L DIAGNOSTIC Recall Screening for colon cancer Health Maintenance Due Date Last Done Comments Hepatitis B (1 of 3 - 3-dose series) 1990 COVID-19 Vaccine (#1) 06/21/1991 Pneumococcal Vaccine: Pediatrics (0 to 5 Years) and At-Risk Patients (6 to 64 Years) (1 - PCV) 1996 HIV Screening 2005 Hepatitis C Screening 2008 Depression Screening 07/25/2018 07/25/2017 Influenza Vaccine (FLU shot) (#1) 2023 05/25/2017, 05/25/2017, 07/16/2013, Additional history exists DTaP,Tdap,and Td Vaccines (4 - Td or Tdap) 01/17/2032 01/16/2022, 12/15/2010, 11/13/1995 GARDASIL-HPV IMMUNIZATION SERIES Aged Out No longer eligible based on patient's age to complete this topic MENINGOCOCCAL (MENACTRA/MENVEO) Aged Out No longer eligible based on patient's age to complete this topic documented as of this encounter Medical Devices Not on filedocumented as of this encounter Care Teams Conveyor Maintenance Mechanic Relationship Specialty Start Date End Date Becki Porter DO [address] [place] [phone] PCP - General Family Medicine 01/16/22 documented as of this encounter
--- OUTSIDE RECORDS SUMMARY | 2023-07-05 15:47 | External Medical Summary | Summary of Care ---
Author Name Unknown Organization [facility] Address [address] [address] Phone [phone] Care Team Providers Care Stitch Bonding Machine Tender Name Role Phone Becki Porter DO Primary Care Provider [phone] Reason for Visit * Reason Onset Date Comments Precert Approved 03/01/2023 toni Encounter Details Date Type Department Care Team Description 03/01/2023 Telephone Nutrition & Weight Management, [facility] [address] [place] [address] India Garcias PA-C [address] [place] [address] Precert Approved ( toni) Allergies Active Allergy Reactions Severity Noted Date Comments Amoxicillin Hives 04/12/2012 Cefprozil Hives 03/30/2009 Clarithromycin Hives 03/30/2009 documented as of this encounter (statuses as of 03/07/2023) Medications Medication Sig Dispensed Refills Start Date End Date Status Albuterol Sulfate HFA 108 (90 Base) MCG/ACT Inhalation Aerosol SolutionIndications :Bronchitis, complicated Inhale by mouth 2 Puffs every 4 hours as needed for Congestion or Wheezing. 18 g 1 01/16/2022 Active Spacer/Aero-Holding Chambers DeviceIndications:B ronchitis, complicated Use with inhaler. 1 Each 0 [...] 8 hours as needed. 0 01/02/2023 Active Wegovy 1 MG/0.5ML Subcutaneous Solution Auto-injector (Semaglutide-Weight Management)Indicati ons:Morbid obesity due to excess calories (HCC) Inject 1 mg under the skin once a week for 28 days. 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 Nasal polyps 04/12/2012 documented as of this encounter (statuses as of 03/07/2023) Resolved Problems Problem Noted Date Resolved Date Body mass index (BMI) of 45.0 to 49.9 in adult 0 11/19/2018 08/25/2022 Overview: Per Obesity protocol #1 - Body mass index (BMI) of 50.0 to 59.9 in adult 1 08/27/2016 11/21/2018 Overview: Per Obesity protocol #1 Obesity, morbid (more than 1 00 lbs over ideal weight or BMI > 40) 10/12/2012 06/30/2017 Overview: Per Obesity protocol #1 Other allergic rhinitis 03/04/2009 04/12/20 Overview: ICD-10 update of inactive term documented as of this encounter (statuses as of 03/07/2023) Immunizations Name Administration Dates Next Due H1N1 2009 Influenza, IM 09/14/2009 Seasonal Influenza, Quadriva lent, No Preserve, 6 Mons & Above, IM 05/25/2017 Seasonal Influenza, Split, IIV3, With Preserve, [...] pur e alcohol) seldom since having daughter Food Insecurity Answer Date Recorded Within the past 12 months, y ou worried that your food would run out before you got money to buy more. Sometimes true 2022 Within the past 12 months, t he food you bought just didn't last and you didn't have money to get more. Sometimes true Sex Assigned at Date Recorded Male 01/02/2023 12:42 PM EDT Job Start Date Occupation Industry Not on file Not on file Not on file documented as of this encounter Miscellaneous Notes * Telephone Encounter - Malina Fregoso LPN - 03/01/2023 3:33 PM EDT Wegovy 1mg requires prior auth. CMM: [id number] Morbid obesity due to excess calories (HCC) Abnormal weight gain documented in this encounter Plan of Treatment Upcoming Encounters Date Type Specialty Care Team Description 03/30/2023 Office Visit Ophthalmology Kenan Caceres, DO [address] [facility] [place] [phone] 04/04/2023 Office Visit Gastroenterology India Garcais PA-C [address] [place] [address] 04/12/2023 Office Visit Family Medicine Becki Porter DO [address] [place] [address] Scheduled Procedures Name Priority Associated Diagnoses Date/Ti [...] Screening 2005 Hepatitis C Screening 2008 Depression Screening, Annual for Pts 12 and Over 07/25/2018 07/25/2017 Influenza Vaccine (FLU shot) (#1) [...] filedocumented as of this encounter Care Teams Stitch Bonding Machine Tender Relationship Specialty Start Date End Date Becki Porter DO [address] [place] [id number] PCP - General Family Medicine 01/16/22 documented as of this encounter
--- OUTSIDE RECORDS SUMMARY | 2023-07-05 15:47 | External Medical Summary | Summary of Care ---
Author Name Unknown Organization [facility] Address [address] [facility] [place] [address] Phone [phone] Care Team Providers Care Chief Creative Officer Name Role Phone Becki Porter DO Primary Care Provider [phone] Reason for Visit * Reason Comments DSMT Follow-Up Encounter Details Date Type Department Care Team Description 01/27/2023 Telemedicine Nutrition Services [facility] Samanta Murray [address] [place] [address] [place] [address] Emily Perez, RDN [address] [place] [address] Type 2 diabetes mellitus with hemoglobin A1c goal of less than 7.0% ([facility])* Allergies Active Allergy Reactions Severity Noted Date Comments Amoxicillin Hives 04/12/2012 Cefprozil Hives 03/30/2009 Clarithromycin Hives 03/30/2009 documented as of this encounter (statuses as of 01/27/2023) Medications Medication Sig Dispensed Refills Start Date End Date Status Albuterol Sulfate HFA 108 (90 Base) MCG/ACT Inhalation Aerosol SolutionIndications: Bronchitis, complicated Inhale by mouth 2 Puffs every 4 hours as needed for Congestion or Wheezing. 18 g 1 01/16/2022 Active Spacer/Aero-Holding Chambers DeviceIndications:Br onchitis, complicated Use with inhaler. 1 Each 0 01/16/2022 Active Allopurinol 300 MG Oral Tablet (Zyloprim)Indication s:Acute gout of right foot, unspecified cause Take a half tablet by mouth for four weeks, then increase to a full tablet. 30 Tablet 11 09/08/2022 Active Omeprazole 40 MG Oral Capsule Delayed Release (PriLOSEC)Indication s:NSAID long-term use Take 1 Capsule by mouth in the morning. 1 hour before the first meal of the day. 30 Capsule 5 09/08/2022 Active Azelastine HCl 0.1 % Nasal Solution (Astelin)Indications :Mixed rhinitis Administer 2 Sprays into nostril in the morning and 2 Sprays before bedtime. 30 mL 1 2022 Active Fluticasone Propionate 50 MCG/ACT Nasal Suspension (Flonase)Indications :Mixed rhinitis Administer 2 Sprays into nostril in the morning. 16 g 1 2022 Active Wegovy 0.25 MG/0.5ML Subcutaneous Solution Auto-injector (Semaglutide-Weight Management)Indicatio ns:Morbid obesity due to excess calories (HCC) Inject 0.25 mg under the skin once a week. 2 mL 0 12/23/2022 Active Wegovy 0.5 MG/0.5ML Subcutaneous Solution Auto-injector (Semaglutide-Weight Management)Indicatio ns:Morbid obesity due to excess calories (HCC) Inject 0.5 mg under the skin once a week. 2 mL 0 12/23/2022 Active Dextromethorphan-gua iFENesin 10-100 MG/5ML Oral Syrup Take 5 mL by mouth every 8 hours as needed. 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 I was in a hospital or clinic location. After connecting through [employer],patient was verified with two unique identifiers. 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 Methods to assure confidentiality were taken. Patient acknowledged consent and understanding of pr ivacy and security of the Telemedicine visit. The patient agreed to participate. Last order of DIABETES MANAGEMENT EDUCATION (ADA) REFERRAL was found on 01/10/2023 from Office Visiton 01/10/2023 No order of CLINICAL NUTRITION AND DIABETES EDUCATION ANNUAL RENEWAL is found. No order of PEDIATRIC DIABETES MANAGEMENT EDUCATION (ADA) REFERRAL OP is found. ADA referral in place? Yes What diabetes concerns and/or barriers to care would you like to discuss in your appointment: What are the 3 major nutrients that contain energy in food? What are the effects of the 3 major nutrients on blood sugar levels? What are the portion sizes of common carbohydrate-containing foods? What nutrient information is listed on the nutrition label? What are the methods of meal planning for diabetes? Was behavior objective from last visit met at least 80% of the time: Monitoring: No - Not assessed DSMT Follow-up Assessment of Content Areas: Choose the answer that represents the participant's competency in ONLY topics assessed from previous visit and addressed today. Areas taught today must correlate with intervention. If content area not assessed and/or intervened today, it will be deferred to future session. Incorporating nutrition management into lifestyle: Needs instruction (1) Diabetes MNT diagnosis: Food and nutrition related knowledge deficit related to new diagnosis of Type 2 diabetes as evidenced by referral to diabetes self management education. DSMT/ Diabetes MNT intervention: Nutrition: Educated on the effects of macronutrients on diabetes control and diabetes complications. Taught and had participant identify foods that contain carbohydrates. Taught participant how to read food labels. Educated on options for DM control via nutrition with participant. Educated on using ADA plate method. Educated on portion sizes Participant Selected Behavioral Objective: Nutrition: To improve blood glucose control I will I will use the plate method as a model for my dinner meals at least 5 days until my next education session. Recommended Medication Changes: None at this time Education materials given to participant/caregiver and reviewed during today's visit: Felicia Patient Handouts: Diabetes: Meal planning Diabetes: Understanding Carbohydrates, Fat and Protein Diabetes: Learning about serving and portion Sizes Reading Food labels Possible Future Topics: Content areas that were not assessed in prior visits: Physical activity Psychosocial/healthy coping Promoting health changes Time Spent With Patient: Time in: 1:00 PM Time out: 1:47 PM Billing: MNT: 30 Minutes (23-37) Plan for Return: Visit date not found 1 week Participant provided with contact information for Diabetes Care and Steam Engineer. All [facility] providers within the system are able to see ADA education and outcomes within the participant electronic medical record. Nuzhat Cadena RDN, NUTRITION SERVICES [facility] Diabetes Care and Steam Engineer Emily Perez RDN, NUTRITION SERVICES [facility] Diabetes Care and Steam Engineer documented in this encounter Miscellaneous Notes * Pt Handout (on AVS) - Nuzhat Cadena RDN - 01/27/2023 1:27 PM EDT Images from the original note were not included. [id number] Reading Food Labels Look for the Nutrition Facts label on packaged foods. Reading labels is a big step toward eating healthier. The tips below help you know what to look for. 1. Servings. Read this closely because the package, jar, or can may contain more than 1 serving. This is how to measure 1 serving of the food in the package. If you eat more than 1 serving, you get more of everything on the label -- including fat, cholesterol, and calories. 2. Total fat. This tells you how many grams (g) of fat are in 1 serving. Fat is high in calories. 3. Saturated fat. This tells you how much saturated fat is in 1 serving. Saturated fat raises your cholesterol the most. Look for foods that have little or no saturated fat. 4. Trans fat. This tells you how much trans fat is in 1 serving. Even a small amount of trans fat can harm your health. Choose foods that have no trans fat. 5. Cholesterol. This tells you how much cholesterol is in 1 serving. For many years, it was recommended to eat less than 300 milligrams (mg) of cholesterol a day. New guidelines have removed this limitation. That's because dietary cholesterol has been shown to not raise blood cholesterol levels as much as once thought. But many foods high in cholesterol are also high in saturated fat. It is recommended to limit saturated fat in your diet. 6. % Daily value. The higher the number, the more 1 serving has of that nutrient. Look for foods that have low numbers for added sugars, total fat, saturated fat, and sodium. Foods that are higher infiber, vitamins, and minerals (such as iron and calcium) are good choices. 7. Sodium. This tells you how much salt is in 1 serving. Choose foods with low numbers for sodium. 8. Dietary fiber. This number tells you how much fiber is in 1 serving. Foods that are high in fiber can help you feel full. They can also be good for your heart and digestion. The recommended daily amount of fiber is 25 grams for women and 38 grams for men. After age 50, your daily fiber needs drop to 21 grams for women and 30 grams for men. Limit the amount of added sugars, fat, saturated fat, trans fat, and sodium. Eating too much of these may increase your risk of certain chronic diseases like some cancers, heart disease, and high blood pressure. Last Reviewed Date: 03/14/202219998778-9458 [employer]. All rights reserved. This information is not intended as a substitute for professional medical care. Always follow your healthcare professional's instructions. * Pt Handout (on AVS) - Nuzhat Cadena RDN - 01/27/2023 1:26 PM EDT Images from the original note were not included. [id number] Diabetes: Learning About Serving and Portion Sizes Servings and portions. What?s the difference? These terms can be very confusing. But learning to measure serving sizes can help you figure out how many carbohydrates (carbs) and other foods you eat each day. They're also powerful tools for managing your weight. A good rule of thumb: Devote half your plate to vegetables and green salad. Split the other half between protein and starchy carbohydrates. Fruit makes a good dessert. Servings and portions Many different words are used to describe amounts of food. If your healthcare provider uses a term you?re not sure of, don?t be afraid to ask. It helps to know the difference between servings and portions: A serving size. This is a fixed size. Food producers use this term to describe their products. For example, the label on a cereal box could say that 1 cup of dry cereal = 1 serving. A portion (also called a helping). This is how much you eat or how much you put on your plate no meal. For instance, you might eat 2 cups of cereal at breakfast. Watching serving sizes The portion you choose to eat (such as 2 cups of cereal) may be more than 1 serving as listed on the food label (such as 1 cup of cereal). That?s why it helps to measure or weigh the food you eat. Because the food label values are based on servings, you?ll need to know how many servings you eat at 1 sitting. When you?re planning for a snack or a meal, keep servings in mind. If you don?t have measuring cupsor a scale handy, there are ways to figure out serving sizes. For instance, you can compare the food to the size of your hand (see pictures below). Here are some general tips: About 3 ounces of meat fits in the palm of your hand 1 cup of food is about the size of your fist An open hand holds about 1 to 2 ounces of nuts Ounces: 2 to 3 ounces is about the size of your palm. 1 cup: 1 cup (or a medium-sized piece) is about the size of your fist. 1/2 cup: 1/2 cup is about the size of your cupped hand. Managing portion sizes If your weight is a concern, reducing your portions can help. A portion is the amount of each type of food on your plate. You can eat more than 1 serving of a food at once. But to keep from eating too much at 1 meal, learn how to manage your portions. Portion control will also help with blood sugarmanagement. Last Reviewed Date: 08/14/202119994916-9137 [employer]. All rights reserved. This information is not intended as a substitute for professional medical care. Always follow your healthcare professional's instructions. * Pt Handout (on AVS) - Nuzhat Cadena RDN - 01/27/2023 1:26 PM EDT [id number] Diabetes: Understanding Carbohydrates, Fats, and Protein Food is a source of fuel and nourishment for your body. It?s also a source of pleasure. Having diabetes doesn?t mean you have to eat special foods or give up desserts. Instead, your dietitian can show you how to plan meals to suit your body. To start, learn how different foods affect blood sugar. Carbohydrates Carbohydrates (carbs) are the main source of fuel for the body. They raise blood sugar. Many peoplethink carbohydrates are only in pasta or bread. But carbohydrates are in many kinds of foods. Carbsinclude: Sugars. These are naturally found in foods such as fruit, milk, honey, and molasses. Sugars can also be added to many foods. They may be added to cereals, yogurt, candy, and desserts. Sugars raiseblood sugar. Starches. These are in bread, cereals, pasta, and dried beans. They?re also in corn, peas, potatoes, yam, acorn squash, and butternut squash. Starches raise blood sugar, but more slowly than simple sugars. Fiber. This is in foods such as vegetables, fruits, beans, and whole grains. Unlike other carbs,fiber isn?t digested or absorbed. So it doesn?t raise blood sugar. In fact, fiber can help keep blood sugar from rising too fast. It helps keep blood cholesterol at a healthy level. Did you know? Even though carbohydrates raise blood sugar, it?s best to have some in every meal. They're an important part of a healthy diet. Fat Fat is an energy source that can be stored until needed. Fat doesn't raise blood sugar. But it can raise blood cholesterol. This increases the risk of heart disease. Fat is high in calories. Eating too many calories can cause weight gain. Not all types of fat are the same. More healthy: Monounsaturated fats. These are mostly found in vegetable oils such as olive, canola, and peanutoils. They're found in avocados and some nuts. Monounsaturated fats are healthy for your heart. That?s because they lower LDL ("bad") cholesterol. Polyunsaturated fats. These are mostly found in vegetable oils such as corn, safflower, and soybean oils. They're found in some seeds, nuts, and fish. Polyunsaturated fats lower LDL ("bad") cholesterol. So, choosing them instead of saturated fats is healthy for your heart. Some unsaturated fats can help lower triglycerides. Less healthy: Saturated fats. These are found in animal products, such as meat, poultry, whole milk, lard, andbutter. Saturated fats raise LDL ("bad") cholesterol. They are not healthy for your heart. Trans fats. These are formed when vegetable oils are processed into solid fats. They are found in many processed foods. Trans fats raise LDL ("bad") cholesterol and lower HDL ("good") cholesterol.They are not healthy for your heart. Protein Protein helps the body build and repair muscle and other tissue. Protein has little or no effect onblood sugar. But many foods that have protein also have saturated fat. By choosing low-fat protein sources, you can get the benefits of protein without the extra fat: Plant protein. This is found in dry beans and peas, nuts, and soy products such as tofu and soymilk. These foods tend to have no cholesterol. Most are low in saturated fat. Animal protein. This is found in fish, poultry, meat, cheese, milk, and eggs. These foods have cholesterol. They can be high in saturated fat. Aim for lean, lower-fat choices. Don't eat fried foods. Last Reviewed Date: 07/14/202119997590-9389 [employer]. All rights reserved. This information is not intended as a substitute for professional medical care. Always follow your healthcare professional's instructions. * Pt Handout (on AVS) - Nuzhat Cadena RDN - 01/27/2023 1:26 PM EDT Images from the original note were not included. 00997 Diabetes: Meal Planning You can help keep your blood sugar level in your target range by eating healthy foods. Your healthcare team can help you create a low-fat, nutritious meal plan. Take an active role in your diabetes management. Follow your meal plan and work with your healthcare team. Make your meal plan A meal plan gives guidelines for the types and amounts of food you should eat. The goal is to balance food and insulin (or other diabetes medicines). That way, your blood sugars will be in your target range. Your dietitian will help you make a flexible meal plan that has many foods that you like. Watch serving sizes Your meal plan will group foods by servings. To learn how much a serving is, start by measuring food portions at each meal. Soon you?ll know what a serving looks like on your plate. Ask your healthcare provider about how to balance servings of different foods. Eat from all the food groups The basis of a healthy meal plan is eating lots of different foods. Choose lean meats, fresh fruitsand vegetables, whole grains, and low-fat or nonfat dairy products. Eating a wide variety of foods gives your body the nutrients it needs. It can also keep you from getting bored with your meal plan. Learn about carbohydrates, fats, and protein Carbohydrates (carbs). These are starches, sugars, and fiber. They're found in many foods. Theseinclude fruit, bread, pasta, milk, and sweets. Of all the foods you eat, carbs have the most effecton your blood sugar. Your dietitian may teach you about carb counting . This is a way to figure outthe number of carbohydrates in a meal. Healthier carbs are absorbed more slowly. They don't raise your blood sugar as much. Fats. These have the most calories. They also have the most effect on your weight and your risk of heart disease. When you have diabetes, it?s important to control your weight and protect your heart. Foods that are high in fat include whole milk, cheese, snack foods, and desserts. You can eat more of the heart- healthy fats such as avocados, salmon, tuna, and olive oil. Protein. This is important for building and repairing muscles and bones. Choose low-fat protein sources, such as fish, egg whites, and skinless chicken. Reduce liquid sugars Extra calories from sodas, sports drinks, and fruit drinks make it hard to keep blood sugar in range. Cut as many liquid sugars from your meal plan as you can. This includes most fruit juices. They are often high in natural or added sugar. Instead, have plenty of water and other sugar-free drinks. Eat less fat If you need to lose weight, try to reduce the amount of fat in your diet. This can also help lower your cholesterol level to keep blood vessels healthier. Cut fat by using only small amounts of liquid oil for cooking. Read food labels carefully. Stay away from foods with unhealthy trans fats. Time your meals right When it comes to blood sugar control, when you eat is as important as what you eat. You may need toeat several small meals spaced evenly throughout the day to stay in your target range. So don?t skip breakfast or wait until late in the day to get most of your calories. Doing so can cause your blood sugar to rise too high or fall too low. Last Reviewed Date: 07/14/202119992425-3740 [employer]. All rights reserved. This information is not intended as a substitute for professional medical care. Always follow your healthcare professional's instructions. documented in this encounter Plan of Treatment Upcoming Encounters Date Type Specialty Care Team Description 02/03/2023 Telemedicine Nutrition Services Sarah Alfred, RN [address] [facility] [place] [address] 02/07/2023 Office Visit Urology Simon Meng MD [address] [facility] [address] [place] [address] 02/21/2023 Office Visit Urology Simon Meng MD [address] [facility] [address] [place] [address] 03/30/2023 Office Visit Ophthalmology Kenan Caceres DO [address] [facility] [place] [address] 04/04/2023 Office Visit Gastroenterology India Garcias PA-C [address] [place] [address] 04/12/2023 Office Visit Family Medicine Becki Porter DO [address] [place] [address] Scheduled Procedures Name Priority Associated Diagnoses Date/Ti [...] Over 07/25/2018 07/25/2017 Influenza Vaccine (FLU shot) (Season Ended) 2023 05/25/2017, 05/25/2017, 07/16/2013, Additional history exists [...] Not on filedocumented as of this encounter Visit Diagnoses Diagnosis Type 2 diabetes mellitus with hemoglobin A1c goal of less than 7.0% (HCC)- Primary documented in this encounter Care Teams Chief Creative Officer Relationship Specialty Start Date End Date Becki Porter DO [address] [place] [address] PCP - General Family Medicine 01/16/22 documented as of this encounter
--- OUTSIDE RECORDS SUMMARY | 2023-07-05 15:47 | External Medical Summary | Summary of Care ---
Author Name Unknown Organization [facility] Address [address] [place] [address] Phone [phone] Care Team Providers Care Accounting Manager Controller Name Role Phone Becki Porter DO Primary Care Provider [phone] Reason for Visit * Reason Onset Date Comments Vasectomy 02/07/2023 Encounter Details Date Type Department Care Team Description 02/07/2023 Telephone Urology, [facility] [address] [facility] [place] [address] Simon Meng MD [address] [facility] [address] [place] [address] Vasectomy Allergies Active Allergy Reactions Severity Noted Date Comments Amoxicillin Hives 04/12/2012 Cefprozil Hives 03/30/2009 Clarithromycin Hives 03/30/2009 documented as of this encounter (statuses as of 02/07/2023) Medications Medication Sig Dispensed Refills Start Date [...] as of this encounter (statuses as of 02/07/2023) Active Problems Problem Noted Date Food insecurity 01/23/2023 Overview: Per [facility] Protocol Body mass index (BMI) of 45.0 to 49.9 in adult 09/08/2022 Body mass index (BMI) of 50.0 to 59.9 in adult 08/22/2022 Overview: Per Obesity protocol - - MANI on CPAP 08/04/2016 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 * Telephone Encounter - Sarah Montoya LPN - 02/07/2023 8:12 AM EDT Patient cancelled today's vasectomy. Please call him to offer to reschedule, and please cancel the post op appointment and let patient know. Thank you Rosalie documented in this encounter Plan of Treatment Upcoming Encounters Date Type Specialty Care Team Description 03/30/2023 Office Visit Ophthalmology Kenan Caceres DO [address] [facility] [place] [address] 04/04/2023 Office Visit Gastroenterology India Garcias PA-C [address] [place] [address] 04/12/2023 Office Visit Family Medicine Becki Porter DO [address] [place] [address] Scheduled Procedures Name Priority Associated Diagnoses Date/Ti [...] filedocumented as of this encounter Care Teams Accounting Manager Controller Relationship Specialty Start Date End Date Becki Porter DO [address] [place] [address] PCP - General Family Medicine 01/16/22 documented as of this encounter
--- OUTSIDE RECORDS SUMMARY | 2023-07-05 15:47 | External Medical Summary | Summary of Care ---
Author Name Unknown Organization [facility] Address [address] [facility] [place] [address] Phone [phone] Care Team Providers Care Lightout Examiner Name Role Phone Becki Porter DO Primary Care Provider [phone] Encounter Details Date Type Department Care Team (Late st Contact Info) Description 06/30/2023 Telephone Nutrition & Weight Management, [facility] [address] [place] [address] India Garcias PA-C [address] [place] [address] Allergies Active Allergy Reactions Criticality Noted Date Comments Amoxicillin Hives 04/12/2012 Cefprozil Hives 03/30/2009 Clarithromycin Hives 03/30/2009 documented as of this encounter (statuses as of 06/30/2023) Medications Medication Sig Dispensed Refills Start Date [...] the morning. 16 g 1 2022 Active Dextromethorphan-gua iFENesin 10-100 MG/5ML Oral Syrup Take 5 mL by mouth every 8 hours as needed. 0 01/02/2023 Active Trulicity 0.75 MG/0.5ML Subcutaneous Solution Pen-injector (Dulaglutide)Indicat ions:Type 2 diabetes mellitus with hemoglobin A1c goal of less than 7.0% (HCC) Inject 0.75 mg under the skin once a week. 2 mL 0 06/30/2023 Active metFORMIN HCl ER 500 MG Oral Tablet Extended Release 24 Hour (Glucophage XR)Indications:Type 2 diabetes mellitus with hemoglobin A1c goal of less than 7.0% (HCC) Take 1 Tablet by mouth daily with dinner. 30 Tablet 5 06/30/2023 Active documented as of this encounter (statuses as of 06/30/2023) Active Problems Problem Noted Date Diagnosed Date [...] as of this encounter (statuses as of 06/30/2023) Resolved Problems Problem Noted Date Diagnosed Date [...] as of this encounter (statuses as of 06/30/2023) Immunizations Name Administration Dates Next Due H1N1 [...] encounter Miscellaneous Notes * Telephone Encounter - India Garcias PA-C - 06/30/2023 1:24 PM EST Please call pt - notify recent A1c was 12.8 which is VERY high. I added metformin to his regimen. He can start this. He should also start with the Trulicity titration as we had discussed earlier today. Glucose levels this high explain the increased thirst - this should improve as the levels come down. Results for orders placed or performed in visit on 06/30/23 HEMOGLOBIN A1C Result Value Ref Range Hemoglobin A1C 12.8 (H) 4.0 - 5.6 % Estimated Average Glucose 321 (H) <126 mg/dL documented in this encounter Plan of Treatment Upcoming Encounters Date Type Department Care Team (Late st Contact Info) Description 07/11/2023 5:20 PM EST Office Visit Family Practice [facility] [address] [facility] [place] [address] Danelle Varghese CRNP [address] [facility] [place] [address] 08/17/2023 2:30 PM EST Office Visit Ophthalmology, [facility] [address] [facility] [place] [address] Kenan Caceres, DO [address] [place] [address] 08/24/2023 4:00 PM EST Office Visit Sleep Disorders Ctr [facility] [address] [place] [phone] Dyan Kunz CRNP [address] [place] [address] 12/18/2023 10:40 AM EDT Office Visit Nutrition & Weight Management, [facility] [address] [place] [address] India Garcias PA-C [address] [place] [address] Scheduled Procedures Name Priority Associated Diagnoses Date/Ti me COLONOSCOPY FLEXIBLE PROXIMA L DIAGNOSTIC Recall Screening for colon cancer Health Maintenance Due Date Last Done Comments COVID-19 Vaccine (#1) 06/21/1991 Pneumococcal Vaccine: Pediatrics (0 to 5 Years) and At-Risk Patients (6 to 64 Years) (1 - PCV) 1996 HIV Screening 2005 Hepatitis C Screening 2008 Depression Screening 07/25/2018 07/25/2017 Influenza Vaccine (FLU shot) (#1) 2023 05/25/2017, 05/25/2017, 07/16/2013, Additional history exists DTaP,Tdap,and Td Vaccines (4 - Td or Tdap) 01/17/2032 01/16/2022, 12/15/2010, 11/13/1995 Hepatitis B Completed 02/26/2002, 02/2002, 10/16/2001 GARDASIL-HPV IMMUNIZATION SERIES Aged Out No longer [...] Primary documented in this encounter Care Teams Lightout Examiner Relationship Specialty Start Date End Date Becki Porter DO [address] [place] [address] PCP - General Family Medicine 01/16/22 documented as of this encounter
--- OUTSIDE RECORDS SUMMARY | 2023-07-05 15:47 | External Medical Summary | Summary of Care ---
Author Name Unknown Organization [facility] [address] [facility] [address] Phone [phone] Care Team Providers Care Sales Support Consultant Name Role Phone Becki Porter DO Primary Care Provider [phone] Reason for Visit * Reason Onset Date Comments Precert Approved 01/24/2023 toni Encounter Details Date Type Department Care Team Description 01/24/2023 Telephone Nutrition & Weight Management, [facility] [address] [place] [address] India Garcias PA-C [address] [place] [address] Precert Approved (toni) Allergies Active Allergy Reactions Severity Noted Date Comments Amoxicillin Hives 04/12/2012 Cefprozil Hives 03/30/2009 Clarithromycin Hives 03/30/2009 documented as of this encounter (statuses as of 01/26/2023) Medications Medication Sig Dispensed Refills Start Date [...] as of this encounter (statuses as of 01/26/2023) Active Problems Problem Noted Date Food insecurity 01/23/2023 Overview: Per [facility] Protocol Body mass index (BMI) of 45.0 to 49.9 in adult 09/08/2022 Body mass index (BMI) of 50.0 to 59.9 in adult 08/22/2022 Overview: Per Obesity protocol - - MANI on CPAP 08/04/2016 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 BIN: [id number] N: [id number] ID: [id number] Morbid obesity due to excess calories (HCC) Abnormal weight gain documented in this encounter Plan of Treatment Upcoming Encounters Date Type Specialty Care Team Description 01/27/2023 Telemedicine Nutrition Services Emily Perez, [place] [address] [place] [address] [place] [address] 02/03/2023 Telemedicine Nutrition Services Sarah Alfred RN [address] [place] [address] [place] [address] 02/07/2023 Office Visit Urology Simon Meng MD [address] [facility] [address] [place] [address] 02/21/2023 Office Visit Urology Simon Meng MD [address] [place] [address] 03/30/2023 Office Visit Ophthalmology Kenan Caceres DO [address] [place] [address] 04/04/2023 Office Visit Gastroenterology India Garcias PA-C [address] [place] [address] 04/12/2023 Office Visit Family Medicine Becki Porter DO [address] [place] [address] Scheduled Procedures Name Priority Associated Diagnoses Date/Ti [...] filedocumented as of this encounter Care Teams Sales Support Consultant Relationship Specialty Start Date End Date Becki Porter DO [address] [place] [address] PCP - General Family Medicine 01/16/22 documented as of this encounter
--- OUTSIDE RECORDS SUMMARY | 2023-07-05 15:47 | External Medical Summary | Summary of Care ---
Author Name Unknown Organization [facility] Address [address] [facility] [address] Phone [phone] Care Team Providers Care Crystal Grinder Name Role Phone Becki Porter DO Primary Care Provider [phone] Reason for Visit * Reason Comments Outpatient Testing Encounter Details Date Type Department Care Team (Late st Contact Info) Description 06/30/2023 9:50 AM EST Laboratory Laboratory, [facility] [address] [place] [address] ByrnePravin ritchie [facility] [address] [place] [address] Type 2 diabetes mellitus with hemoglobin A1c goal of less than 7.0% ([facility]) Allergies Active Allergy Reactions Criticality Noted Date [...] hemoglobin A1c goal of less than 7.0% ([facility]) Inject 0.75 mg under the skin once a week. 2 mL 0 06/30/2023 Active documented as of this encounter [...] on file documented as of this encounter Plan of Treatment Upcoming Encounters Date Type Department Care Team (Late st Contact Info) Description 07/11/2023 5:20 PM EST Office Visit Family Practice [facility] [address] [place] [address] Danelle Varghese CRNP [address] [place] [address] 08/17/2023 2:30 PM EST Office Visit Ophthalmology, [facility] [address] [facility] [place] [address] Kenan Caceres, [address] [place] [address] 08/24/2023 4:00 PM EST Office Visit Sleep Disorders Ctr [facility] [address] [facility] [place] [phone] Dyan Kunz CRNP 132 [facility] [place] [address] 12/18/2023 10:40 AM EDT Office Visit Nutrition & Weight Management, [facility] [place] [address] India Garcias PA-C [address] [facility] [place] [address] Scheduled Procedures Name Priority Associated Diagnoses Date/Ti [...] Not on filedocumented as of this encounter Procedures Procedure Name Priority Date/Time Associated Diagnosis Comments HEMOGLOBIN A1C Routine 06/30/2023 9:36 AM EST Type 2 diabetes mellitus with hemoglobin A1c goal of less than 7.0% (HCC) documented in this encounter Results * (ABNORMAL) HEMOGLOBIN A1C (06/30/2023 9:36 AM EST) Hemoglobin A1C 12.8(H) 4.0 - 5.6 % 06/30/2023 12:46 PM EST [facility] Comment:The use of HbA1c to monitor glycemic status is based on normal hemoglobin and HbA composition. This test should not be used in patients with abnormal hemoglobin that affects the half life of the red blood cell or the in vivo glycation rates. Estimated Average Glucose 321(H) <126 mg/dL 06/30/2023 12:46 PM EST [facility] Blood Venous blood specimen / Unknown Venipuncture / Unknown 06/30/2023 9:36 AM EST 06/30/2023 9:36 AM EST India Garcias PA-C LAB BLOOD ORD ERABLES [facility] [address] [facility] [place] [address] documented in this encounter Visit Diagnoses Diagnosis Type 2 diabetes mellitus with hemoglobin A1c goal of less than 7.0% (HCC) documented in this encounter Care Teams Crystal Grinder Relationship Specialty Start Date End Date Becki Porter DO [address] [place] [address] PCP - General Family Medicine 01/16/22 documented as of this encounter
--- OUTSIDE RECORDS SUMMARY | 2023-07-05 15:47 | External Medical Summary | Summary of Care ---
Author Name Unknown Organization [facility] Address [address] [facility] [place] [address] Phone [phone] Care Team Providers Care Emergency Management Director Name Role Phone Becki Porter DO Primary Care Provider [phone] Reason for Referral * Evaluate & Treat - Unlimited Visits (Within 10 days (routine)) - Authorized Specialty Diagnoses / Procedures Referred By Contkathy t Referred To Contact Sleep Medicine / Sleep Disorders Diagnoses MANI on CPAP India Garcias PA-C [address] [place] [address] Referral ID Status Reason Start Date Expiration Date Visits Requested Visits Authorized [id number] Authorized Specialty Services Required 3 2 2 Question Answer [facility] SLEEP MED ADULT REFERRAL Sleep Apnea Testing and Management Does the patient snore and/or gasp at night or has been told they stop breathing at night? Yes Referral Priority Within 10 days (routine) Where should this appointment be scheduled? [facility] Reason for Visit * Reason Comments Weight Management Was on Wegovy. Could n't get for last several months. Encounter Details Date Type Department Care Team ([facility] st Contact Info) Description 06/30/2023 9:00 AM EST Office Visit Nutrition & Weight Management, [facility] [address] [place] [address] India Garcias PA-C [address] [place] [address] Morbid obesity due to excess calories (HCC)*; MANI on CPAP; Type 2 diabetes mellitus with hemoglobin A1c goal of less than 7.0% (HCC) Allergies Active Allergy Reactions Criticality Noted Date [...] on file documented as of this encounter Last Filed Vital Signs Vital Sign Reading Time Taken Comments Blood Pressure 132/86 06/30/2023 9:13 AM EST Pulse 80 06/30/2023 9:13 AM EST Temperature - - Respiratory Rate - - Oxygen Saturation - - Inhaled Oxygen Concentration - - Weight 154.3 kg (340 lb 1.6 oz) 06/30/2023 9:13 AM EST Height - - Body Mass Index 52.48 12/28/2022 8:41 AM EDT documented in this encounter Progress Notes * India Garcias PA-C - 06/30/2023 9:16 AM EST Comprehensive Weight Management Clinic Note Nursing Notes: Malina Fregoso, JIMMY 06/30/23 0915 Sign at exiting of workspace Pt verified identity by last name and date. Chief Complaint Patient presents with Weight Management Was on Wegovy. Couldn't get for last several months. Kris Grady presents in follow up to the comprehensive weight management clinic. The patient leatha 32 year old male Wt Readings from Last 6 Encounters: 06/30/23 (!) 154.3 kg (340 lb 1.6 oz) 01/10/23 (!) 159.7 kg (352 lb) 12/28/22 (!) 163.7 kg (361 lb) 12/23/22 (!) 164.1 kg (361 lb 12.8 oz) 12/19/22 (!) 165.6 kg (365 lb) 10/26/22 (!) 165.9 kg (365 lb 12.8 oz) Patient is receiving ongoing education regarding dietary and physical modifications for weight loss. - Initial clinic visit 12/23/22. Weight 361 lbs Height 67.5 Body mass index is 55.83 kg/m. - Today's weight: 340 lbs - Total weight loss of -21 since initial weight in clinic - Patient's last follow up with GI/Nutrition clinic was on 12/23/22. - The patient's weight has -21 lbs since the last visit 06/30/23 -had Wegovy 0.25, 0.5mg -tolerated really well - off d/t supply issues -had hospital stay for pneumonia - dx with type 2 diabetes A1c 6.8% - had been on Wegovy for a few weeks prior to this -currently off work d/t shoulder dislocation at work Today's Visit 12/23/22 - Overall goal: be healthier - Wt hx: has always struggled - Highest wt as adult: 392lbs - in 2021 - Lowest wt as adult: 180lbs - Barriers: stress, portions, snacking - Family weight hx: both parents and sister had bariatric surgery - unsuccessful weight maintenance Patient Active Problem List Diagnosis Code Mixed rhinitis J31.0 Nasal polyps J33.9 MANI on CPAP G47.33 Body mass index (BMI) of 50.0 to 59.9 in adult (HCC) Z68.43 Body mass index (BMI) of 45.0 to 49.9 in adult (HCC) Z68.42 Food insecurity Z59.41 Review of Systems: Review of Systems Endocrine: Positive for polydipsia. All other systems reviewed and are negative. Current Medications: Current Outpatient Medications Medication Sig Dispense Refill Albuterol Sulfate HFA 108 (90 Base) MCG/ACT Inhalation Aerosol Solution Inhale by mouth 2 Puffs every 4 hours as needed for Congestion or Wheezing. 18 g 1 Allopurinol 300 MG Oral Tablet (Zyloprim) Take a half tablet by mouth for four weeks, then increaseto a full tablet. 30 Tablet 11 Omeprazole 40 MG Oral Capsule Delayed Release (PriLOSEC) Take 1 Capsule by mouth in the morning. 1 hour before the first meal of the day. 30 Capsule 5 Azelastine HCl 0.1 % Nasal Solution (Astelin) Administer 2 Sprays into nostril in the morning and 2Sprays before bedtime. 30 mL 1 Fluticasone Propionate 50 MCG/ACT Nasal Suspension (Flonase) Administer 2 Sprays into nostril in the morning. 16 g 1 Dextromethorphan-guaiFENesin 10-100 MG/5ML Oral Syrup Take 5 mL by mouth every 8 hours as needed. Trulicity 0.75 MG/0.5ML Subcutaneous Solution Pen-injector (Dulaglutide) Inject 0.75 mg under the skin once a week. 2 mL 0 Spacer/Aero-Holding Chambers Device Use with inhaler. 1 Each 0 No current facility-administered medications for this visit. Water intake: yes Current diet: Breakfast-- skips Snack-- skips Lunch-- leftover spaghetti Snack-- skips Dinner-- bagel with cream cheese Snack-- skips Drinks-- increasing water, soda, tea Meals Away from Home-- Food logs: No Type of exercise: ADL Weight loss Pharmacotherapy: no BP 132/86 | Pulse 80 | Wt (!) 154.3 kg (340 lb 1.6 oz) | BMI 52.48 kg/m | BSA 2.71 m PHYSICAL EXAMINATION: General: Patient awake alert and oriented. Patient is well appearing and in no acute distress. Skin: No rashes. HEENT: Head is atraumatic, normocephalic. EOMs intact Abdomen: Obese Neuro: No focal deficits Psych: Appropriate mood and affect. Assessment and Plan: Abnormal weight gain / Body mass index is 52.48 kg/m. / Morbid obesity : - Would like to proceed with possible medication use - Barriers are consistency. - Motivators are feeling better overall, avoiding/reducing co-morbid conditions. - The patient was encouraged to to avoid all fruit juices and regular sodas, consume at least 64 ounces of water per day, keep food logs and get weighed on a weekly basis. They were encouraged to increase physical activity as prescribed. - Handouts regarding nutrition and physical activity were provided, as appropriate. 1. Keep a food log. If you bite it, write it! Apps like [employer] or [employer] Calorie goal: 2000 2. Drink 48-64 ounces of non-caloric beverages per day. No fruit juices or regular soda Try crystal light, propel, zero calorie flavored water, plain water 3. Goal of 30 minutes of exercise 5 days per week (150 minutes per week--can be divided up however you would like) Aim for aerobic activity and muscle strengthening activities 4. Increase fruit and vegetable servings to 5-6 per day. 1/2 of your plate should be fruits and vegetables 5. Eat 100-200 calories within 1-2 hours of awakening, and every 4 - 6 hours while awake. (3 meals with snacks in between) Choose 100 calorie or less snacks, protein snacks 7. Weight yourself weekly and follow trend over time (day to day weight fluctuations can be discouraging) 8. Decrease starches like bread, pasta, cereal, potatoes and corn. Aim for of your plate Try substitutions like zoodles, lentil pasta, cauliflower mashed potatoes, whole grain foods, quinoa Limit junk/processed foods Chips, pretzels, cookies, cakes, sweets White bread/rolls/wraps/bagels, white rice 9. Increase protein to feel full longer (1/4 of your plate) Kris was seen today for weight management. Diagnoses and all orders for this visit: Morbid obesity due to excess calories (HCC) -start trulicity - plan switch to wegovy -he will send messages for uptitration -work on cutting out soda - start here MANI on CPAP - SLEEP MEDICINE REFERRAL OP -needs to get back on CPAP Type 2 diabetes mellitus with hemoglobin A1c goal of less than 7.0% (HCC) - Trulicity 0.75 MG/0.5ML Subcutaneous Solution Pen-injector (Dulaglutide); Inject 0.75 mg under the skin once a week. - HEMOGLOBIN A1C; Future -check A1c today given polydipsia -start Trulicity Abnormal weight gain Gastroesophageal reflux disease without esophagitis -cont PPI Acute gout, unspecified cause, unspecified site The patient agreed to try the plan as discussed and return in 3 months. They were encouraged to call or send a patient portal message in the meantime with any questions or concerns prior to their next clinic visit. I spent a total of 20 minutes on the date of service in preparation, delivery, and documentation ofthe care provided to Kris Grady excluding any time spent in the performance of separately billed services. This included but was no limited to providing counseling about the benefits of weight loss, about their nutritional status, detailed explanations about calorie count, types of nutrients to choose, and composition of the meals. Motivational interview provided in order to prepare the patient to achieve future goals. India Garcias PA-C documented in this encounter Nursing Notes * Malina Fregoso LPN - 06/30/2023 9:15 AM EST Pt verified identity by last name and date. Chief Complaint Patient presents with Weight Management Was on Wegovy. Couldn't get for last several months. documented in this encounter Plan of Treatment Upcoming Encounters Date Type Department Care Team (Late st Contact Info) Description 06/30/2023 9:50 AM EST Laboratory Laboratory, [facility] [address] [place] [phone] Pravin Byrne [address] [facility] [place] [address] Type 2 diabetes mellitus with hemoglobin A1c goal of less than 7.0% ([facility]) 07/11/2023 5:20 PM EST Office Visit Family Practice [facility] [address] [place] [address] Danelle Varghese CRNP [address] [place] [address] 08/17/2023 2:30 PM EST Office Visit Ophthalmology, [facility] [address] [place] [address] Kenan Caceres, DO [address] [place] [address] 08/24/2023 4:00 PM EST Office Visit Sleep Disorders Ctr [facility] [address] [place] [phone] Dyan Kunz CRNP [address] [place] [address] 12/18/2023 10:40 AM EDT Office Visit Nutrition & Weight Management, [facility] [address] [place] [address] India Garcias PA-C [address] [place] [address] Pending Results Name Type Priority Associated Diagnoses Date /Time HEMOGLOBIN A1C Lab Routine Type 2 diabetes mellitus with hemoglobin A1c goal of less than 7.0% (HCC) 06/30/2023 9:36 AM EST Scheduled Orders Name Type Priority Associated Diagnoses Orde r Schedule HEMOGLOBIN A1C Lab Routine Type 2 diabetes mellitus with hemoglobin A1c goal of less than 7.0% (HCC) Expected: 06/30/2023, Expires: 06/30/2024 Scheduled Procedures Name Priority Associated Diagnoses Date/Ti me COLONOSCOPY FLEXIBLE PROXIMA L DIAGNOSTIC Recall Screening for colon cancer Scheduled Referrals Name Type Priority Associated Diagnoses Orde r Schedule SLEEP MEDICINE REFERRAL OP Referral Within 10 days (routine) MANI on CPAP Ordered: 06/30/2023 Health Maintenance Due Date Last Done Comments [...] as of this encounter Visit Diagnoses Diagnosis Morbid obesity due to excess calories (HCC)- Primary MANI on CPAP Obstructive sleep apnea (adult) (pediatric) Type 2 diabetes mellitus with hemoglobin A1c goal of less than 7.0% (HCC) Type 2 diabetes mellitus with hemoglobin A1c goal of less than 7.0% (HCC) documented in this encounter Care Teams Emergency Management Director Relationship Specialty Start Date End Date Becki Porter DO [address] [place] [address] PCP - General Family Medicine 01/16/22 documented as of this encounter"
--- OUTSIDE RECORDS SUMMARY | 2023-07-05 15:47 | External Medical Summary | Summary of Care ---
Author Name Unknown Organization [facility] Address [address] [facility] [place] [address] Phone [phone] Care Team Providers Care Professor/Nurse Anesthetist Name Role Phone Becki Porter DO Primary Care Provider Encounter Details Date Type Department Care Team (Late st Contact Info) Description 06/19/2023 Orders Only Family Practice [facility] [address] [facility] [place] [address] Becki Porter DO [address] [place] [address] Allergies Active Allergy Reactions Criticality Noted Date [...] EST Office Visit Nutrition & Weight Management, [facility] [address] [place] [id number] India Garcias PA-C [address] [place] [address] 08/17/2023 2:30 PM EST Office Visit Ophthalmology, [facility] [address] [place] [address] Kenan Caceres, DO [address] [facility] [place] [address] Scheduled Procedures Name Priority Associated Diagnoses Date/Ti [...] Procedure Name Priority Date/Time Associated Diagnosis Comments OUTSIDE LAB-CORONAVIRUS (COVID-19) Routine 06/16/2023 documented in this encounter Results * OUTSIDE LAB-CORONAVIRUS (COVID-19) (06/16/2023) [id number] DE LAB NOT DETECTED NOT DETECTED OUTSIDE LAB (SEE SCANNED REPORT) 06/16/2023 Andreea Chang PA-C LABORATORY OUTSIDE LAB (SEE SCANNED REPORT) documented in this encounter Care Teams Professor/Nurse Anesthetist Relationship Specialty Start Date End Date Becki Porter DO [address] [place] [address] PCP - General Family Medicine 01/16/22 documented as of this encounter
--- OUTSIDE RECORDS SUMMARY | 2023-07-05 15:47 | External Medical Summary | Summary of Care ---
Author Name Unknown Organization [facility] [address] [facility] [address] Phone [phone] Care Team Providers Care Mail Handler Sorter Name Role Phone Becki Porter DO Primary Care Provider +1 [phone] Reason for Visit * Reason Comments Outpatient Testing Encounter Details Date Type Department Care Team (Late st Contact Info) Description 06/30/2023 9:50 AM EST Laboratory Laboratory, [facility] [address] [place] [phone] ByrnePravin ritchie [facility] [address] [place] [address] Type 2 diabetes mellitus with hemoglobin A1c goal of less than 7.0% ([facility]) Allergies Active Allergy Reactions Criticality Noted Date [...] hemoglobin A1c goal of less than 7.0% ([facility]) Inject 0.75 mg under the skin once [...] 5:20 PM EST Office Visit Family Practice [facility] [address] [place] [address] Danelle Varghese CRNP [address] [place] [address] 08/17/2023 2:30 PM EST Office Visit Ophthalmology, [facility] [address] [facility] [place] [address] Kenan Caceres, [address] [place] [address] 08/24/2023 4:00 PM EST Office Visit Sleep Disorders Ctr [facility] [address] [facility] [place] [phone] Dyan Kunz CRNP [address] [facility] [place] [address] 12/18/2023 10:40 AM EDT Office Visit Nutrition & Weight Management, [facility] [address] [facility] [place] [address] India Garcias PA-C [address] [facility] [place] [address] Pending Results Name Type Priority Associated Diagnoses Date /Time HEMOGLOBIN A1C Lab Routine Type 2 diabetes mellitus with hemoglobin A1c goal of less than 7.0% ([facility]) 06/30/2023 9:36 AM EST Scheduled Procedures Name Priority Associated Diagnoses Date/Ti [...] (HCC) documented in this encounter Care Teams Mail Handler Sorter Relationship Specialty Start Date End Date Becki Porter DO [address] [place] [address] PCP - General Family Medicine 01/16/22 documented as of this encounter
--- OUTSIDE RECORDS SUMMARY | 2023-07-05 15:47 | External Medical Summary | Summary of Care ---
Author Name Unknown Organization [facility] [address] [facility] [address] Phone [phone] Care Team Providers Care Pump Oiler Name Role Phone Becki Porter DO Primary Care Provider +1 [phone] Encounter Details Date Type Department Care Team (Late st Contact Info) Description 06/30/2023 Telephone Pharmacy, [facility] [address] [place] [address] Ally Rowe, [facility] [address] [place] [address] Allergies Active Allergy Reactions Criticality Noted Date [...] 5:20 PM EST Office Visit Family Practice [facility] [address] [facility] [place] [address] Danelle Varghese CRNP [address] [place] [address] 08/17/2023 2:30 PM EST Office Visit Ophthalmology, [facility] [address] [facility] [place] [address] Kenan Caceres DO [address] [place] [address] 08/24/2023 4:00 PM EST Office Visit Sleep Disorders Ctr [facility] [address] [facility] [place] [phone] Dyan Kunz CRNP [address] [place] [address] 12/18/2023 10:40 AM EDT Office Visit Nutrition & Weight Management, [facility] [place] [address] India Garcias PA-C [address] [place] [address] Scheduled Procedures Name Priority Associated Diagnoses Date/Ti [...] filedocumented as of this encounter Care Teams Pump Oiler Relationship Specialty Start Date End Date Becki Porter DO [address] [place] [address] PCP - General Family Medicine 01/16/22 documented as of this encounter
--- OUTSIDE RECORDS SUMMARY | 2023-07-05 15:47 | External Medical Summary | Summary of Care ---
Author Name Unknown Organization [facility] Address [address] [facility] [place] [address] Phone [phone] Care Team Providers Care Fork Operator Name Role Phone Becki Porter DO Primary Care Provider +1 [phone] Reason for Visit * Reason Onset Date Comments Precert Approved 06/30/2023 Trulicity Encounter Details Date Type Department Care Team (Late st Contact Info) Description 06/30/2023 Telephone Nutrition & Weight Management, [facility] [address] [place] [address] India Garcias PA-C [address] [place] [address] Precert Approved (Trulicity) Allergies Active Allergy Reactions Criticality Noted Date Comments Amoxicillin Hives 04/12/2012 Cefprozil Hives 03/30/2009 Clarithromycin Hives 03/30/2009 documented as of this encounter (statuses as of 07/03/2023) Medications Medication Sig Dispensed Refills Start Date [...] as of this encounter (statuses as of 07/03/2023) Active Problems Problem Noted Date Diagnosed Date Food insecurity 01/23/2023 Overview: Per [facility] Protocol Body mass index (BMI) of 45.0 to 49.9 in adult 0 09/08/2022 Body mass index (BMI) of 50.0 to 59.9 in adult 0 08/22/2022 Overview: Per Obesity protocol - - MANI on CPAP 08/04/2016 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 Nasal polyps 04/12/2012 documented as of this encounter (statuses as of 07/03/2023) Resolved Problems Problem Noted Date Diagnosed Date [...] as of this encounter (statuses as of 07/03/2023) Immunizations Name Administration Dates Next Due H1N1 [...] Telephone Encounter - Malina Fregoso LPN - 06/30/2023 2:42 PM EST Patient needs prior auth on Trulicity Bin: [id number] Id: [id number] Pcn: [id number] Type 2 diabetes mellitus with hemoglobin A1c goal of less than 7.0% ([facility]) documented in this encounter Plan of Treatment Upcoming Encounters Date Type Department Care Team (Late st Contact Info) Description 07/11/2023 5:20 PM EST Office Visit Family Practice [facility] [address] [place] [address] Danelle Varghese CRNP [address] [place] [address] 08/17/2023 2:30 PM EST Office Visit Ophthalmology, [facility] [address] [place] [address] Kenan Caceres, DO [address] [facility] [place] [address] 08/24/2023 4:00 PM EST Office Visit Sleep Disorders Ctr [facility] [address] [place] [phone] Dyan Kunz CRNP [address] [place] [address] 12/18/2023 10:40 AM EDT Office Visit Nutrition & Weight Management, [facility] [address] [place] [address] India Garcias PA-C [address] [place] [address] Scheduled Procedures Name Priority Associated Diagnoses Date/Ti [...] filedocumented as of this encounter Care Teams Fork Operator Relationship Specialty Start Date End Date Becki Porter DO [address] [place] [address] PCP - General Family Medicine 01/16/22 documented as of this encounter
--- OUTSIDE RECORDS SUMMARY | 2023-07-05 15:47 | External Medical Summary | Summary of Care ---
Author Name Unknown Organization [facility] Address [address] [facility] [place] [address] Phone [phone] Care Team Providers Care Protective Signal Superintendent Name Role Phone Becki Porter DO Primary Care Provider +1 [phone] Reason for Visit * Reason Comments eRx-Medication Refill Encounter Details Date Type Department Care Team Description 02/25/2023 Refill Nutrition & Weight Management, [facility] [address] [place] [address] Madeline Garcias PA-C [address] [place] [address] Morbid obesity due to excess calories (HCC) Allergies Active Allergy Reactions Severity Noted Date Comments Amoxicillin Hives 04/12/2012 Cefprozil Hives 03/30/2009 Clarithromycin Hives 03/30/2009 documented as of this encounter (statuses as of 02/27/2023) Medications Medication Sig Dispensed Refills Start Date End Date Status Albuterol Sulfate HFA 108 (90 Base) MCG/ACT Inhalation Aerosol SolutionIndicatio ns:Bronchitis, complicated Inhale by mouth 2 Puffs every 4 hours as needed for Congestion or Wheezing. 18 g 1 01/16/2022 Active Spacer/Aero-Holdi ng Chambers DeviceIndications :Bronchitis, complicated Use with inhaler. 1 Each 0 01/16/2022 Active Allopurinol 300 MG Oral Tablet (Zyloprim)Indicat ions:Acute gout of right foot, unspecified cause Take a half tablet by mouth for four weeks, then increase to a full tablet. 30 Tablet 11 09/08/2022 Active Omeprazole 40 MG Oral Capsule Delayed Release (PriLOSEC)Indicat ions:NSAID long-term use Take 1 Capsule by mouth in the morning. 1 hour before the first meal of the day. 30 Capsule 5 09/08/2022 Active Azelastine HCl 0.1 % Nasal Solution (Astelin)Indicati ons:Mixed rhinitis Administer 2 Sprays into nostril in the morning and 2 Sprays before bedtime. 30 mL 1 2022 Active Fluticasone Propionate 50 MCG/ACT Nasal Suspension (Flonase)Indicati ons:Mixed rhinitis Administer 2 Sprays into nostril in the morning. 16 g 1 2022 Active Dextromethorphan- guaiFENesin 10-100 MG/5ML Oral Syrup Take 5 mL by mouth every 8 hours as needed. 0 01/02/2023 Active Wegovy 1 MG/0.5ML Subcutaneous Solution Auto-injector (Semaglutide-Weig ht Management)Indica tions:Morbid obesity due to excess calories (HCC) Inject 1 mg under the skin once a week for 28 days. 2 mL 0 02/27/2023 3 Active Wegovy 0.25 MG/0.5ML Subcutaneous Solution Auto-injector (Semaglutide-Weig ht Management)Indica tions:Morbid obesity due to excess calories (HCC) Inject 0.25 mg under the skin once a week. 2 mL 0 12/23/2022 3 Discontinued Wegovy 0.5 MG/0.5ML Subcutaneous Solution Auto-injector (Semaglutide-Weig ht Management)Indica tions:Morbid obesity due to excess calories (HCC) Inject 0.5 mg under the skin once a week. 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 Authorizing Provider: MADELINE GARCIAS * Telephone Encounter - Malina Fregoso LPN - 02/27/2023 11:12 AM EDTPending Prescriptions: Disp Refills Wegovy 1 MG/0.5ML Subcutaneous Solution Au*2 mL Sig: Inject 1 mg under the skin. * Telephone Encounter - Malina Fregoso LPN - 02/27/2023 11:08 AM EDT Did you pend patient's preferred pharmacy and medication before forwarding?yes [facility] [address] [address] MARIN DIAZ Pending Prescriptions: Disp Refills Wegovy 1 MG/0.5ML Subcutaneous Solution A*2 mL Sig: Inject 1 mg under the skin. Last Visit: 12/23/2022 (in office), Visit date not found (telemedicine) Next Visit: 04/04/2023 If no future appointments scheduled, and last appointment is greater than a year ago, please schedule patient for a follow-up appointment Last date the medication was ordered: 12/23/22 Is this request for a controlled substance?No Urine Drug Screen:No results found for this or any previous visit. Patient Phone Numbers Labs: Lab Results Component Value Date/Time CREAT 0.91 04/10/2015 12:00 AM POTASSIUM 3.8 04/10/2015 12:00 AM TSH 3.90 04/13/2016 12:13 PM HGBA1C 5.2 10/12/2012 01:40 PM documented in this encounter Plan of Treatment Upcoming Encounters Date Type Specialty Care Team Description 03/30/2023 Office Visit Ophthalmology Kenan Caceres DO [address] [place] [address] 04/04/2023 Office Visit Gastroenterology Madeline Garcias PA-C [address] [place] [address] 04/12/2023 Office Visit Family Medicine Becki Porter DO [address] [place] [address] Scheduled Procedures Name Priority Associated Diagnoses Date/Ti [...] Diagnosis Morbid obesity due to excess calories (HCC) documented in this encounter Care Teams Protective Signal Superintendent Relationship Specialty Start Date End Date Becki Porter DO [address] [place] [address] PCP - General Family Medicine 01/16/22 documented as of this encounter
--- OUTSIDE RECORDS SUMMARY | 2023-07-05 15:47 | External Medical Summary ---
Author Name Unknown Address Unknown Organization K01:[facility] [place] [address] [place] [address] [address] Laboratory Report Ordering Provider Test Date Status JOAN CORREA 06/30/2023 09:36:39 Final Observation Date Value Abnormality Reference (Units ) Status HbA1C 06/30/2023 09:36:39 12.8 Above high normal 4. 0-5.6 (%) Final The use of HbA1c to monitor glycemic status is based on normal hemoglobin and HbA composition. This test should not be used in patients with abnormal hemoglobin that affects the half life of the red blood cell or the in vivo glycation rates. Glucose, estimated average 06/30/2023 09:36:39 321 Above high normal <126 (mg/dL) Kirill benton Performing Location [facility] [place] [address] [place] [address]
--- OUTSIDE RECORDS SUMMARY | 2023-07-05 15:47 | External Medical Summary | Summary of Care ---
Author Name Unknown Organization [facility] Address [address] [facility] [place] [address] Phone [phone] Care Team Providers Care Pan Operator Name Role Phone Becki Porter DO Primary Care Provider +1 [phone] Encounter Details Date Type Department Care Team (Late st Contact Info) Description 06/30/2023 Telephone Nutrition & Weight Management, [facility] [address] [place] [address] India Garcias PA-C [address] [place] [address] Allergies Active Allergy Reactions Criticality Noted Date [...] Encounter - Malina Fregoso LPN - 06/30/2023 2:54 PM EST Pt returned call. Gave below information. Insurance requiring prior auth on Trulicity. That has been started. * Telephone Encounter - Malina Fregoso LPN - 06/30/2023 2:42 PM EST Called pt and left message to call back. * Telephone Encounter - India Garcias PA-C [...] 07/11/2023 5:20 PM EST Office Visit Family [facility] 132 [facility] [place] [address] Danelle Varghese CRNP [address] [place] [address] 08/17/2023 2:30 PM EST Office Visit Ophthalmology, [facility] 132 [facility] [place] [address] Kenan Caceres, [address] [place] [address] 08/24/2023 4:00 PM EST Office Visit Sleep Disorders Ctr [facility] [address] [facility] [place] [phone] Dyan Kunz CRNP 132 [facility] [place] [address] 12/18/2023 10:40 AM EDT Office Visit Nutrition & Weight Management, [facility] [address] [place] [address] India Garcias PA-C 132 [facility] [place] [address] Scheduled Procedures Name Priority Associated Diagnoses Date/Ti [...] Primary documented in this encounter Care Teams Pan Operator Relationship Specialty Start Date End Date Becki Porter DO [address] [place] [address] PCP - General Family Medicine 01/16/22 documented as of this encounter
--- OUTSIDE RECORDS SUMMARY | 2023-07-05 15:47 | External Medical Summary | Summary of Care ---
Author Name Unknown Organization [facility] Address [address] [facility] [place] [address] Phone [phone] Care Team Providers Care Auto Dealership Porter Name Role Phone Becki Porter DO Primary Care Provider [phone] [phone] Encounter Details Date Type Department Care Team (Late st Contact Info) Description 06/30/2023 Telephone Nutrition & Weight Management, [facility] [address] [place] [address] India aGrcias PA-C [address] [place] [address] Allergies Active Allergy Reactions Criticality Noted Date [...] 5:20 PM EST Office Visit Family Practice [facility] 132 [facility] [place] [address] Danelle Varghese CRNP 132 [facility] [place] [address] 08/17/2023 2:30 PM EST Office Visit Ophthalmology, [facility] [address] [place] [address] Kenan Caceres, DO 21 [facility] [place] [address] 08/24/2023 4:00 PM EST Office Visit Sleep Disorders Ctr [facility] [address] [place] [phone] Dyan Kunz CRNP [address] [place] [address] 12/18/2023 10:40 AM EDT [facility] [address] [place] [address] India Garcias PA-C [address] [place] [address] Scheduled Procedures Name Priority Associated Diagnoses Date/Ti [...] Primary documented in this encounter Care Teams Auto Dealership Porter Relationship Specialty Start Date End Date Becki Porter DO [address] [place] [address] PCP - General Family Medicine 01/16/22 documented as of this encounter
--- OUTSIDE RECORDS SUMMARY | 2023-07-05 15:48 | External Medical Summary | Summary of Care ---
Author Name Unknown Organization [facility] Address [address] [facility] [place] [address] Phone [phone] Care Team Providers Care Geospatial Engineer Name Role Phone Becki Porter DO Primary Care Provider +1 [phone] Reason for Visit * Reason Onset Date Comments Medication Refill 01/23/2023 Encounter Details Date Type Department Care Team Description 01/23/2023 Refill Nutrition & Weight Management, [facility] [address] [place] [address] India Garcias PA-C [address] [place] [address] Morbid obesity due to excess calories (HCC) Allergies Active Allergy Reactions Severity Noted Date Comments Amoxicillin Hives 04/12/2012 Cefprozil Hives 03/30/2009 Clarithromycin Hives 03/30/2009 documented as of this encounter (statuses as of 01/24/2023) Medications Medication Sig Dispensed Refills Start Date [...] as of this encounter (statuses as of 01/24/2023) Active Problems Problem Noted Date Body mass index (BMI) of 45.0 to 49.9 in adult 09/08/2022 Body mass index (BMI) of 50.0 to 59.9 in adult 08/22/2022 Overview: Per Obesity protocol - - MANI on CPAP 08/04/2016 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 Nasal polyps 04/12/2012 documented as of this encounter (statuses as of 01/24/2023) Resolved Problems Problem Noted Date Resolved Date [...] as of this encounter (statuses as of 01/24/2023) Immunizations Name Administration Dates Next Due H1N1 [...] 01/27/2023 Telemedicine Nutrition Services Emily Perez, [place] [address] [place] [address] 02/03/2023 Telemedicine Nutrition Services Sarah Alfred, RN [address] [facility] [place] [address] 02/07/2023 Office Visit Urology Simon Meng MD [address] [place] [address] 02/21/2023 Office Visit Urology Simon Meng MD [address] [place] [address] 03/30/2023 Office Visit Ophthalmology Kenan Caceres DO [address] [place] [address] 04/04/2023 Office Visit Gastroenterology India Garcias PA-C [address] [place] [address] 04/12/2023 Office Visit Family Medicine Becki Porter DO [address] [place] [address] Scheduled Procedures Name Priority Associated Diagnoses Date/Ti [...] (HCC) documented in this encounter Care Teams Geospatial Engineer Relationship Specialty Start Date End Date Becki Porter DO [address] [place] [address] PCP - General Family Medicine 01/16/22 documented as of this encounter
--- OUTSIDE RECORDS SUMMARY | 2023-07-05 15:48 | External Medical Summary | Summary of Care ---
Author Name Unknown Organization [facility] Address [address] [place] [address] Phone [phone] Care Team Providers Care Hose Tester Name Role Phone Becki Porter DO Primary Care Provider +1 [phone] Encounter Details Date Type Department Care Team Description 01/17/2023 Orders Only Outcomes Research Department [address] [place], [place] [id number] Alice Swan CHRA [employer] Other*[id number] Allergies Active Allergy Reactions Severity Noted Date Comments Amoxicillin Hives 04/12/2012 Cefprozil Hives 03/30/2009 Clarithromycin Hives 03/30/2009 documented as of this encounter (statuses as of 01/17/2023) Medications Medication Sig Dispensed Refills Start Date [...] as of this encounter (statuses as of 01/17/2023) Active Problems Problem Noted Date Body mass index (BMI) of 45.0 to 49.9 in adult 09/08/2022 Body mass index (BMI) of 50.0 to 59.9 in adult 08/22/2022 Overview: Per Obesity protocol - - MANI on CPAP 08/04/2016 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 Nasal polyps 04/12/2012 documented as of this encounter (statuses as of 01/17/2023) Resolved Problems Problem Noted Date Resolved Date [...] as of this encounter (statuses as of 01/17/2023) Immunizations Name Administration Dates Next Due H1N1 [...] Encounters Date Type Specialty Care Team Description 01/20/2023 Telemedicine Nutrition Services Sarah Alfred RN [address] [place] [address] [place] [address] 01/27/2023 Telemedicine Nutrition Services Emily Perez, [place] [address] [place] [address] [place] [address] 02/03/2023 Telemedicine Nutrition Services Sarah Alfred RN [address] [facility] [place] [address] 02/07/2023 Office Visit Urology Simon Meng MD [address] [place] [address] 02/21/2023 Office Visit Urology Simon Meng MD [address] [place] [address] 04/04/2023 Office Visit Gastroenterology India Garcias PA-C [address] [place] [address] 04/12/2023 Office Visit Family Medicine Becki Porter DO [address] [place] [address] Scheduled Orders Name Type Priority Associated Diagnoses Orde r Schedule MYCODE INITIAL ADULT Lab Routine [employer] Other*[id number] Expected: 01/17/2023 (Approximate), Expires: 02/06/2024 Scheduled Procedures Name Priority Associated Diagnoses Date/Ti [...] as of this encounter Visit Diagnoses Diagnosis [employer] Other*[id number] documented in this encounter Care Teams Hose Tester Relationship Specialty Start Date End Date Becki Porter DO [address] [place] [address] PCP - General Family Medicine 01/16/22 documented as of this encounter
--- OUTSIDE RECORDS SUMMARY | 2023-07-05 15:48 | External Medical Summary | Summary of Care ---
Author Name Unknown Organization [facility] Address [address] [place] [address] Phone [phone] Care Team Providers Care Explosive Technician Name Role Phone Becki Porter DO Primary Care Provider [phone] Reason for Visit * Reason Comments DSMT INITIAL * Evaluate & Treat - Unlimited Visits (Within 10 days (routine)) - Authorized Specialty Diagnoses / Procedures Referred By Contac t Referred To Contact Cyber Security Consultant / Nutrition Services Diagnoses Type 2 diabetes mellitus with hemoglobin A1c goal of less than 7.0% ([facility]) Tete Choi DO [address] [facility] [address] Referral ID Status Reason Start Date Expiration Date Visits Requested Visits Authorized [id number] Authorized Specialty Services Required 01/10/[phone] Encounter Details Date Type Department Care Team Description 01/13/2023 Telemedicine Nutrition [facility] [address] [place] [address] Sarah Alfred RN [address] [facility] [place] [id number] Type 2 diabetes mellitus with hemoglobin A1c goal of less than 7.0% ([facility])* Allergies Active Allergy Reactions Severity Noted Date Comments Amoxicillin Hives 04/12/2012 Cefprozil Hives 03/30/2009 Clarithromycin Hives 03/30/2009 documented as of this encounter (statuses as of 01/13/2023) Medications Medication Sig Dispensed Refills Start Date [...] as of this encounter (statuses as of 01/13/2023) Active Problems Problem Noted Date Body mass index (BMI) of 45.0 to 49.9 in adult 09/08/2022 Body mass index (BMI) of 50.0 to 59.9 in adult 08/22/2022 Overview: Per Obesity protocol - - MANI on CPAP 08/04/2016 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 documented in this encounter Progress Notes * Emily Perez RDN - 01/13/2023 1:03 PM EDT DIABETES SELF-MANAGEMENT TRAINING/INITIAL NOTE Diabetes Group Session Name: Kris Grady Date: 01/13/2023 Patient location: HOME. I was in a hospital or clinic location. After connecting through [employer],patient was verified with two unique identifiers. 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 Methods to assure confidentiality were taken. Patient acknowledged consent and understanding of pr ivacy and security of the Telemedicine visit. The patient agreed to participate. ADA referral in place? Yes What diabetes concerns and/or barriers to care would you like to discuss in your appointment: New diagnosis of Type 2 DM diabetes. Here for education. What is Type 2 diabetes? What increased my risk for getting diabetes? Why and when should I test my blood sugar? What should my blood sugar be? What type of diabetes to you have? Type 2 Hemoglobin AIC Results: Lab Results Component Value Date/Time HEMOGLOBIN A1C - [facility]ER 5.2 10/12/2012 01:40 PM DSMT Initial Visit Assessment of Content Areas: Choose the answer that represents the participant's competency in each area. All need to be assessed at initial. Areas taught must match intervention. If content area not assessed and/or intervened today, it will be deferred to future session. Diabetes disease process and treatment process: Needs instruction (1) Incorporating nutrition management into lifestyle: Needs instruction (1) Incorporating physical activity into lifestyle: Needs instruction (1) Using medications safely: Needs instruction (1) Monitoring blood glucose, interpreting and using results: Needs instruction (1) Prevention, detection, and treatment of acute complications: Needs instruction (1) Prevention, detection, and treatment of chronic complications: Needs instruction (1) Developing strategies to address psychosocial issues: Needs instruction (1) Developing strategies to promote health/change behavior: Needs instruction (1) DSMT/ Diabetes MNT intervention: Pathophysiology: Defined disease process. Monitoring: Explained importance of SMBG. Educated on recommended testing times and target ranges (fasting/pre-meals - 80- 130, 90 minutes to 2 hours after meals less than 140-180, ideal less than 140). Promote health/Change behavior: Worked with participant to identify realistic diabetes goals and realistic expectations. Educated on strategies for setting Specific Measurable Achievable Realistic Time-bound (SMART) goals. Participant Selected Behavioral Objective: Monitoring: I will improve glucose control by testing as prescribed by my doctor or I will discuss testing with my doctor before my next education session. Education materials given to participant/caregiver and reviewed during today's visit: Felicia/Desire materials in preferred language Possible Future Topics: Diet Physical activity Medications Acute complications Chronic complications Psychosocial/healthy coping Time Spent With Patient: Time in: 1:00 PM Time out: 2:00 PM Billing: DSMT: 1 Hour Plan for Return: 1 week Participant provided with contact information for Diabetes Care and Rewards Consultant. All [facility] providers within the system are able to see ADA education and outcomes within the participant electronic medical record. Emily Perez RDN, NUTRITION SERVICES [address] Diabetes Care and Rewards Consultant documented in this encounter Miscellaneous Notes * Pt Handout (on AVS) - Emily Perez RDN - 01/13/2023 1:07 PM EDT Images from the original note were not included. [id number] Treating Low Blood Sugar (Hypoglycemia) [id number]: Last Reviewed Date: 08/14/202119995099-8430 The [employer]. All rights reserved. This information is not intended as a substitute for professional medical care. Always follow your healthcare professional's instructions. * Pt Handout (on AVS) - Eimly Perez RDN - 01/13/2023 1:06 PM EDT Images from the original note were not included. [id number] Managing Type 2 Diabetes Type 2 diabetes is a long-term (chronic) condition. Managing it may mean making some tough changes.Your healthcare team can help you. You'll need to balance your medicine with diet and activity. This will help you manage your type 2 diabetes. You will also need to check your blood sugar often. And work with your healthcare providerto prevent complications. Ask your team about a service called diabetes self-management education and support (DSMES). You will learn skills to help you better manage your diabetes and find support when you need it. This service may be given in a group setting or one-on-one with your team. Take your medicine You may take pills or give yourself insulin shots for diabetes. Or you may use both. Take your medicines or give yourself insulin at the right times, This will help you control your blood sugar. Think about ways that will help you remember to take your medicines the right way every day. Ask your healthcare provider or team for ideas. You may only take pills for your diabetes now. But this may change. Over time, most people with type 2 diabetes also need insulin or other injections. Eat healthy A healthy diet helps control the amount of sugar in your blood. It also helps you stay at a healthyweight. Or it helps you lose weight, if you're overweight. Extra weight makes it harder to control diabetes. Your healthcare team will help you create a plan that works for you. You don't have to give up all the foods you like. Have meals and snacks with: Vegetables Fruits Lean meats or other healthy proteins Whole grains Low-fat or nonfat dairy products Replace sugary drinks (including fruit juice) with water or low-calorie, no calorie drinks wheneverpossible. Don't have foods with added sugar. Be physically active Being active helps lower your blood sugar. Activity helps your body use insulin to turn food into energy. It also helps you manage your weight: Ask your healthcare provider to help you to make an activity program that's right for you. Your program is based on your age, general health, and types of activity you enjoy. Start off slowly. But try to aim for at least 150 minutes of exercise or activity each week. Start with 30 minutes a day. Exercise in 10- minute blocks. Don?t let more than 2 days go by without being active. Check your blood sugar A regular part of your care may be to check your own blood sugar. Or you may only need to check your blood sugar from time to time. Your healthcare provider will tell you how to check your blood sugar at home. Checking it tells you if your blood sugar is in your target range. Having your blood sugars within the target range means that you are managing your diabetes well. If your blood sugar levels are too high or too low, your healthcare provider may suggest changes toyour diet or activity level. They may also adjust your medicine. Your healthcare provider may also tell you to check your blood sugar more often when you are sick. Take care of yourself When you have diabetes, you may be more likely to get other health problems. They include foot, eye, heart, nerve, and kidney problems. You can help prevent these problems by controlling your blood sugar. And by taking good care of yourself. Your healthcare provider, nurse, educator senior clinical, and others can help you with the following: Checkups. You should have regular checkups with your healthcare provider. At those visits, you will have a physical exam that includes checking your feet. Your healthcare provider will also check your blood pressure and weight. Take your shoes off before your appointment starts to be sure your feet are checked. Be sure to bring the records of your blood sugar tests. Ask your healthcare providers if there are new or better ways to check on your blood sugars. Other exams. You'll also need eye, foot, and dental exams at least once each year or as advised. Lab tests. You will have blood and urine tests: o Your healthcare provider will check your hemoglobin A1C at least twice a year. This blood test shows how well you have been controlling your blood sugar over 2 to 3 months. The results help your healthcare provider manage your diabetes. o You will also have other lab tests. For example, to check for kidney problems and abnormal cholesterol levels. Smoking. If you smoke, you will need to quit. Smoking makes it more likely you will get complications from diabetes. Ask your healthcare provider about ways to quit. Also don't use e-cigarette, orvaping products. Vaccines. Get a yearly flu shot. And ask your healthcare provider about vaccines to prevent pneumonia, shingles, COVID-19, and hepatitis B. Stress and depression Most people have challenges throughout their lives. Living with diabetes can increase your stress. Feeling stressed or depressed can actually affect your blood sugar levels. Tell your healthcare provider if you are having trouble coping with diabetes. They can help or refer you to other healthcare providers or programs. To learn more Know where you can get help. You can try the following: Support. Ask family and friends to support your efforts to take care of yourself. Or look for a diabetes support group nearby or on the internet. Check the Community Overview link at diabetes.org/get-involved/community Counseling. Talk with a social work instructor, psychologist, psychiatrist, or other counselor. Information. Contact the [place] [employer] at www.diabetes.org or 798-038-6460. Another good source is the Association of Diabetes Care and Education Specialists at www.diabeteseducator.org/tnretw-zhrq-szvznycm. Last Reviewed Date: 02/11/202219994978-6690 The [employer]. All rights reserved. This information is not intended as a substitute for professional medical care. Always follow your healthcare professional's instructions. documented in this encounter Plan of Treatment Upcoming Encounters Date Type Specialty Care Team Description 01/20/2023 Telemedicine Nutrition Services Sarah Alfred RN [address] [place] [address], [place] [address] 01/27/2023 Telemedicine Nutrition Services Sarah Alfred RN [address] [place] [address] 02/03/2023 Telemedicine Nutrition Services Sarah Alfred RN [address] [place] [address] 02/07/2023 Office Visit Urology Simon Meng MD [address] [place] [address] 02/21/2023 Office Visit Urology Simon Meng MD [address] [place] [address] 04/04/2023 Office Visit Gastroenterology India Garcias PA-C [address] [place] [address] 04/12/2023 Office Visit Family Medicine Becki Porter DO [address] [place] [address] Scheduled Procedures Name Priority Associated Diagnoses Date/Ti me COLONOSCOPY FLEXIBLE PROXIMA L DIAGNOSTIC Recall Screening for colon cancer Scheduled Referrals Name Type Priority Associated Diagnoses Orde r Schedule DIABETES MANAGEMENT EDUCATION (ADA) REFERRAL Referral Within 10 days (routine) Type 2 diabetes mellitus with hemoglobin A1c goal of less than 7.0% ([facility]) Ordered: 01/10/2023 Health Maintenance Due Date Last Done Comments [...] hemoglobin A1c goal of less than 7.0% ([facility])- Primary documented in this encounter Care Teams Explosive Technician Relationship Specialty Start Date End Date Becki Porter DO [address] [place] [address] PCP - General Family Medicine 01/16/22 documented as of this encounter
--- OUTSIDE RECORDS SUMMARY | 2023-07-05 15:48 | External Medical Summary | Summary of Care ---
Author Name Unknown Organization [facility] Address [address] [facility] [place] [address] Phone [phone] Care Team Providers Care Storm Sash Maker Name Role Phone Becki Porter DO Primary Care Provider [phone] Reason for Referral * Evaluate & Treat - Unlimited Visits (Within 30 days (routine)) - Pending Review Specialty Diagnoses / Procedures Referred By Adrienne gómez Referred To Contact Ophthalmology Diagnoses Type 2 diabetes mellitus with hemoglobin A1c goal of less than 7.0% ([facility]) Tete Choi DO [address] [place] [address] Referral ID Status Reason Start Date Expiration Date Visits Requested Visits Authorized [id number] Pending Review Specialty Services Required 01/10/[phone] Question Answer Referral Priority Within 30 days (routine) Does patient want glasses or contact check exam included? No Comments Diabetic Eye Exam * Evaluate & Treat - Unlimited Visits (Within 10 days (routine)) - Authorized Specialty Diagnoses / Procedures Referred By Adrienne gómez Referred To Contact Direct Chill Caster / Nutrition Services Diagnoses Type 2 diabetes mellitus with hemoglobin A1c goal of less than 7.0% ([facility]) Tete Choi DO [address] [place] [address] Referral ID Status Reason Start Date Expiration Date Visits Requested Visits Authorized [id number] Authorized Specialty Services Required 01/10/[phone] Question Answer Referral Priority Within 10 days (routine) Reason for Referral Type 2 Diabetes Is this a newly diagnosed condition? Yes Comments This referral is for Diabetes Self-Management Training (DSMT) by a recognized [place] [employer] (ADA) staff development educator: Nurse (RN), Registered Dietitian Hospital Nurse Liaison (RDN), and/or Diabetes Medical Nutrition Therapy (MNT) Management (dietitian only). Diabetes educators are responsible for assessing the participant's diabetes education needs, and providing diabetes self-management training in accordance with the standards set by the ADA for DSMT. Any adjustment in diabetes therapy will be made within the guidelines of standards of practice and [facility] approved policies and procedures. I understand that the staff development educator will keep me informed. Areas of Education: Pathophysiology Nutrition Physical Activity Medications Monitoring Acute Complications Chronic Complications Psychosocial Management Promote Health/Behavior Change Participant will be offered 1:1 education training if there is a lack of classes available within 2 months. Providers can also order 1:1 training if indicated for participant for the following reasons: 1:1 Training for Insulin Initiation Participant Inappropriate for Class Setting By my electronic signature, I understand that my patient will be offered the comprehensive ADA content area above unless deemed not appropriate of I specify otherwise here: Reason for Visit * Reason Onset Date Comments Hospital Follow-Up [facility] discharg e 01/02 for pneumonia Hospital Follow-Up 01/10/2023 Encounter Details Date Type Department Care Team Description 01/10/2023 Office Visit Family [facility] [address] [id number] Tete Choi DO [address] [address] Hospital discharge follow-up*; History of pneumonia; Type 2 diabetes mellitus with hemoglobin A1c goal of less than 7.0% ([facility]) Allergies Active Allergy Reactions Severity Noted Date Comments Amoxicillin Hives 04/12/2012 Cefprozil Hives 03/30/2009 Clarithromycin Hives 03/30/2009 documented as of this encounter (statuses as of 01/20/2023) Medications Medication Sig Dispensed Refills Start Date [...] as of this encounter (statuses as of 01/20/2023) Active Problems Problem Noted Date Body mass index (BMI) of 45.0 to 49.9 in adult 09/08/2022 Body mass index (BMI) of 50.0 to 59.9 in adult 08/22/2022 Overview: Per Obesity protocol - - MANI on CPAP 08/04/2016 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 Nasal polyps 04/12/2012 documented as of this encounter (statuses as of 01/20/2023) Resolved Problems Problem Noted Date Resolved Date [...] as of this encounter (statuses as of 01/20/2023) Immunizations Name Administration Dates Next Due H1N1 [...] Tobacco: Former Cigarettes Smokeless Tobacco: Current Chew Tobacco Cessation:Ready to Q uit: Not Asked; Counseling Given: Not Answered Comments:a can a day Alcohol Use Standard [...] Sign Reading Time Taken Comments Blood Pressure 132/80 01/10/2023 3:29 PM EDT Pulse 84 01/10/2023 3:29 PM EDT Temperature 36.6 C (97.8 F) 01/10/2023 3:29 PM ED T Respiratory Rate 20 01/10/2023 3:29 PM EDT Oxygen Saturation 93% 01/10/2023 3:29 PM EDT Inhaled Oxygen Concentration - - Weight 159.7 kg (352 lb) 01/10/2023 3:29 PM EDT Height - - Body Mass Index 54.32 12/28/2022 8:41 AM EDT documented in this encounter Progress Notes * Tete Choi, - 01/10/2023 3:57 PM EDT Subjective: Kris Grady is a 32 year old male. Chief Complaint Patient presents with Hospital Follow-Up [facility] discharge 01/02 for pneumonia HPI: Pt presents for hospital follow up. He was tx for bronchitis the week before, not improving. Admitted 01/01-01/02. He returned to the hospital the next day, was admitted longer. desatted to 82%, given O2 4L - no O2 requirement now. Discharged on levaquin, 1 day left. Also steroids initially. To have sleep study to renew cpap. Hasn't needed albuterol since last week. Still feels a little tired, no fever/chills. He was also dx w/T2DM - a1c 6.8% He started wegovy 3 weeks ago for weight loss prior to diagnosis. Tolerating so far, feels bennett earlier. Also has increased urinary frequency. Has a family hx of T2DM. Will sometimes wake up w/DIEGO in the AM. PHM: Patient Active Problem List Diagnosis Code Mixed rhinitis J31.0 Nasal polyps J33.9 MANI on CPAP G47.33, Z99.89 Body mass index (BMI) of 50.0 to 59.9 in adult ([facility]) Z68.43 Body mass index (BMI) of 45.0 to 49.9 in adult ([facility]) Z68.42 Current Outpatient Medications Medication Sig Dispense Refill Albuterol Sulfate HFA 108 (90 Base) MCG/ACT Inhalation Aerosol Solution Inhale by mouth 2 Puffsevery 4 hours as needed for Congestion or Wheezing. 18 g 1 Spacer/Aero-Holding Chambers Device Use with inhaler. 1 Each 0 Allopurinol 300 MG Oral Tablet (Zyloprim) Take a half tablet by mouth for four weeks, then increase to a full tablet. 30 Tablet 11 Omeprazole 40 MG Oral Capsule Delayed Release (PriLOSEC) Take 1 Capsule by mouth in the morning. 1 hour before the first meal of the day. 30 Capsule 5 Azelastine HCl 0.1 % Nasal Solution (Astelin) Administer 2 Sprays into nostril in the morning and 2 Sprays before bedtime. 30 mL 1 Fluticasone Propionate 50 MCG/ACT Nasal Suspension (Flonase) Administer 2 Sprays into nostril in the morning. 16 g 1 Wegovy 0.25 MG/0.5ML Subcutaneous Solution Auto-injector (Semaglutide-Weight Management) Inject0.25 mg under the skin once a week. 2 mL 0 Wegovy 0.5 MG/0.5ML Subcutaneous Solution Auto-injector (Semaglutide-Weight Management) Inject 0.5 mg under the skin once a week. 2 mL 0 Dextromethorphan-guaiFENesin 10-100 MG/5ML Oral Syrup Take 5 mL by mouth every 8 hours as needed. No current facility-administered medications for this visit. Past Medical History: Diagnosis Date ALLERGIC RHINITIS NEC 03/04/2009 Asthma, allergic as a child Obesity, Class I, BMI 30.0-34.9 (see actual BMI) 11/16/2011 Obesity, morbid (more than 100 lbs over ideal weight or BMI > 40) ([facility]) 10/12/2012 Obesity, morbid (more than 100 lbs over ideal weight or BMI > 40) ([facility]) 10/12/2012 Past Surgical History: Procedure Laterality Date COLONOSCOPY, DIAGNOSTIC (RECTUM) 03/01/2022 normal, repeat age 45 / [facility] CREATE EARDRUM OPENING,GEN'L ANESTH 3 sets prior age 7 EGD, FLEXIBLE, DIAGNOSTIC 03/01/2022 normal / [facility] LAPAROSCOPY;APPENDECTOMY 11/13/2011 [facility] REMOVE TONSILS & ADENOIDS, UNDER 12 age 6 Tonsillectomy/Adenoids,<12 Y/O Review of patient's allergies indicates: Allergen Reactions Amoxicillin Hives Cefzil [Cefprozil] Hives Clarithromycin Hives Objective: BP 132/80 (BP Site: Left Arm, BP Position: Sitting, BP Cuff Size: Large) | Pulse 84 | Temp 36.6 C(97.8 F) (Tympanic) | Resp 20 | Wt (!) 159.7 kg (352 lb) | SpO2 93% | BMI 54.32 kg/m | BSA 2.76m Review of Systems: As per HPI, all other ROS neg. Physical Exam: General: alert, healthy and no distress Heart: regular rate & rhythm, no murmurs and no gallops Lungs: chest symmetric with normal AP diameter, no chest deformities noted, lungs clear to auscultation Extremities: no joint deformities, effusion, or inflammation, no edema Type 2 diabetes mellitus with hemoglobin A1c goal of less than 7.0% ([facility]) (Primary) - DIABETES MANAGEMENT EDUCATION (ADA) REFERRAL - OPHTHALMOLOGY(DIABETES-EXTENDED)REFERRAL OP - LIPID PANEL WITH DIRECT LDL IF TG IS HIGH; Future; Expected date: 01/10/2023 - HEMOGLOBIN A1C; Future; Expected date: 01/10/2023 Follow up: as needed. Tete Choi DO documented in this encounter Plan of Treatment Upcoming Encounters Date Type Specialty Care Team Description 01/27/2023 Telemedicine Nutrition Services Emily Perez, [place] [address] [place] [address] [place] [id number] 02/03/2023 Telemedicine Nutrition Services Sarah Alfred RN [address] [place] [address] [place] [address] 02/07/2023 Office Visit Urology Simon Meng MD [address] [place] [address] 02/21/2023 Office Visit Urology Simon Meng MD [address] [place] [address] 03/30/2023 Office Visit Ophthalmology Kenan Caceres DO [address] [facility] [place] [address] 04/04/2023 Office Visit Gastroenterology India Garcias PA-C [address] [place] [address] 04/12/2023 Office Visit Family Medicine Becki Porter DO [address] [place] [address] Scheduled Orders Name Type Priority Associated Diagnoses Orde r Schedule LIPID PANEL WITH DIRECT LDL IF TG IS HIGH Lab Routine Type 2 diabetes mellitus with hemoglobin A1c goal of less than 7.0% (HCC) Expected: 01/10/2023, Expires: 01/11/2024 HEMOGLOBIN A1C Lab Routine Type 2 diabetes mellitus with hemoglobin A1c goal of less than 7.0% (HCC) Expected: 01/10/2023 (Approximate), Expires: 01/10/2024 Scheduled Procedures Name Priority Associated Diagnoses Date/Ti me COLONOSCOPY FLEXIBLE PROXIMA L DIAGNOSTIC Recall Screening for colon cancer Scheduled Referrals Name Type Priority Associated Diagnoses Orde r Schedule DIABETES MANAGEMENT EDUCATION (ADA) REFERRAL Referral Within 10 days (routine) Type 2 diabetes mellitus with hemoglobin A1c goal of less than 7.0% (HCC) Ordered: 01/10/2023 OPHTHALMOLOGY(DIABET ES-EXTENDED)REFERRAL OP Referral Within 30 days (routine) Type 2 diabetes mellitus with [...] as of this encounter Visit Diagnoses Diagnosis Hospital discharge follow-up- Primary Other follow-up examination History of pneumonia Personal history of pneumonia (recurrent) Type 2 diabetes mellitus with hemoglobin A1c goal of less than 7.0% (HCC) documented in this encounter Care Teams Storm Sash Maker Relationship Specialty Start Date End Date Becki Porter DO [address] [place] [address] PCP - General Family Medicine 01/16/22 documented as of this encounter"
[2023-07-05 15:57] LABS: Coronavirus CoV-2 (COVID19)PCR DETECTED (NotDetected)
[2023-07-05] MEDS ORDERED: REMDESIVIR 200 MG in SODIUM CHLORIDE 0.9% 210 ML IV ONE (16:00)
[2023-07-05] MEDS: DOXYCYCLINE HYCLATE 100 MG CAP PO SCH (16:39)
[2023-07-05] MEDS: ENOXAPARIN INJ 40 MG/0.4 ML SYR SQ SCH (18:07)
[2023-07-05] MEDS: MICONAZOLE NITRATE 2% CR 30 GM TUBE EXT SCH (18:10)
[2023-07-05] MEDS: INSULIN ASPART PER UNIT CHARGE SC SCH ×2 (18:43→20:51)
[2023-07-06] MEDS: INSULIN ASPART PER UNIT CHARGE SC SCH ×6 (00:27→20:28)
[2023-07-06] MEDS: DOXYCYCLINE HYCLATE 100 MG CAP PO SCH ×2 (04:09→15:55)
[2023-07-06] MEDS: ACETAMINOPHEN 325 MG TAB PO PRN (04:10)
[2023-07-06] MEDS: ENOXAPARIN INJ 40 MG/0.4 ML SYR SQ SCH ×2 (04:10→15:57)
[2023-07-06 04:51] LABS: Hematocrit (blood only) 41.7 % (42.0-52.0); Hemoglobin 14.1 g/dl (14.0-18.0); Mean Corpuscular Hemoglobin 27.3 pg (25.0-34.0); Mean Corpuscular Hgb Conc 33.8 g/dL (32.0-36.0); Mean Corpuscular Volume 80.8 fL (80.0-100.0); Mean Platelet Volume 9.2 fL (9.4-12.4); Platelet Count 226 K/uL (130-400); RDW Coefficient of Variation 13.9 % (11.5-14.5); RDW Standard Deviation 40.5 fL (36.4-46.3); Red Blood Count 5.16 M/uL (4.70-6.10); White Blood Count 9.18 K/ul (4.8-10.8)
[2023-07-06 05:02] LABS: Alanine Aminotransferase 12 U/L (7-52); Albumin Globulin Ratio 1.4 (0.9-2); Albumin Level 3.7 gm/dl (3.4-5.0); Alkaline Phosphatase 94 U/L (34-104); Anion Gap 6 (3-11); Aspartate Aminotransferase 15 U/L (13-39); BUN Creatinine Ratio 17.2 (10-20); Bilirubin,Total 0.5 mg/dl (0.2-1.0); Blood Urea Nitrogen 11 mg/dl (6-23); C Reactive Protein 1.82 mg/dl (0-0.5); Calcium 8.9 mg/dl (8.6-10.3); Carbon Dioxide 29 mmol/L (21-32); Chloride 100 mmol/L (98-107); Creatinine Clr Calc Pharmacy 241.9 ml/min; Est GFR (African American) > 150.0 ml/min; Est GFR (Non-African American) 129.6 ml/min; Globulin 2.7 gm/dl (2.5-4.0); Glucose 189 mg/dl (70-99(Fasting)); Sodium 135 mmol/L (136-145); Total Protein 6.4 gm/dl (6.0-8.3)
[2023-07-06] MEDS: MICONAZOLE NITRATE 2% CR 30 GM TUBE EXT SCH ×2 (06:57→18:26)
[2023-07-06] MEDS: PANTOprazole 40 MG TAB PO SCH (06:58)
--- NOTE | 2023-07-06 07:50 | Electrocardiogram Report ---
Test Reason : Blood Pressure : / mmHG Vent. Rate : 108 BPM Atrial Rate : 108 BPM P-R Int : 136 ms QRS Dur : 084 ms QT Int : 330 ms P-R-T Axes : 028 042 035 degrees QTc Int : 442 ms Sinus tachycardia Otherwise normal ECG When compared with ECG of 24-MAR-2023 21:03, No significant change was found Confirmed by Corby oRgers ([id number]) on 07/06/2023 7:50:12 AM Referred By: Confirmed By:Corby Rogers
[2023-07-06] MEDS: allopurinoL 300 MG TAB PO SCH (08:20)
[2023-07-06] MEDS: FLUTICASONE PROPIONATE NA SPR 16 GM BTL NAE SCH (08:36)
[2023-07-06] MEDS ORDERED: LANTUS PER UNIT CHARGE SC ONE (09:00)
[2023-07-06] MEDS ORDERED: REMDESIVIR 100 MG in SODIUM CHLORIDE 0.9% 230 ML IV SCH (12:00)
--- NOTE | 2023-07-06 13:46 | Pharmacy Report ---
Pharmacy Glycemic Short Note 2 - Date of Service July 06, 2023 - Glycemic Short BSG Results (Last 24 hours): 07/05/23 07/05/23 07/05/23 14:21 15:41 18:06 Glucose POC Glucose 412 H* 336 H* 298 H 07/05/23 07/05/23 07/06/23 20:33 23:46 03:46 Glucose 189 H POC Glucose 305 H* 169 H 07/06/23 07/06/23 07/06/23 03:48 08:19 11:48 Glucose POC Glucose 190 H 263 H 264 H OUTPATIENT ANTIDIABETIC REGIMEN: * N/A * HbA1C= 13.5% (07/05/23) ASSESSMENT: * Mr Grady is a 32 y/o M with a PMH of T2DM who presents for COVID. Patient did not received steroids. * Admitting BSG was 412 around 1400. * Patient initially given 45 units around 1600 + Novolog weight-based stress of 2. (adjust body weight weight based stress of 3). * BSGs from 1600 onward were 298-305 then overnight were 169-190 mg/dL. * Patient received an additional 6 units overnight. * Fasting BSG today was 263. Patient received 45 units + 6 units overnight which estimates a basal requirement of 50 units. Since fasting BSG above goal range will increase that by 20% to 60 units daily. Will start 30 units BID. * Tighten Novolog since BSGs remain elevated. PLAN FOR INPATIENT GLYCEMIC CONTROL: * Basal insulin * Lantus 30 units SQ BID * Bolus insulin * NovoLog per scale ACHS or Q6hrs while NPO * Goal Range: Low 110 mg/dL - High 140 mg/dL * Correction Factor: 12 mg/dL/unit * Nutritional / Prandial insulin per carb ratio of 1 unit per 4 grams CHO consumed
[2023-07-06] MEDS ORDERED: HYDROcodone/HOMATROPINE SYRUP 5MG/1.5MG 5ML UDP PO PRN (14:56)
--- NOTE | 2023-07-06 15:02 | Hospitalist Progress Note ---
Date of Service July 06, 2023 Assessment & Plan (1) COVID-19: Plan: Exposed to child last week, developed sx on 06/30 Last fever on 07/04, continues to feel congested, having myalgias and SOB with coughing. 93% on RA CXR without acute process Complaints of weakness and cough but no shortness of breath at rest and saturating normally on room air Started on IV remdesivir which will be discontinued Holding off on steroids as patient not oxygen requiring, already has uncontrolled BSG as above Duonebs QID PRN, antitussives Complains to have more cough and will add Hycodan on top of guaifenesin Clinically stable (2) Obstructive sleep apnea: Plan: Continue the CPAP MANI not on CPAP Agreeable to use cpap again, awaiting new home mask (3) Morbid obesity: (4) Uncontrolled diabetes mellitus with hyperglycemia: Plan: Hyperglycemia Newly diagnosed DM II Increased thirst, a1c of 12.8 on June 30, started on Metformin 500mg daily. 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 Morbid obesity BMI 49.5 Following with Nutrition & Weight Mgmt Rash in groin Fungal infection 2/2 uncontrolled DM II, obesity Started on miconazole, nystatin BID DVT Ppx: SQ lovenox Code status: FULL PCP: [place] Dispo: [facility]mission and Anticipated Discharge Date Admission Date: July 05, 2023 Subjective 07/06/2023 The patient was seen and examined in emergency room He has been complaining of cough without any phlegm and does not have any shortness of breath Saturating normally on room air Denies any other symptoms Review of Systems Review of Systems: All systems reviewed and are unremarkable except as noted below Respiratory: Has profound cough Physical Exam Physical Exam: Lying in bed with minimal distress due to ongoing cough Constitutional: well developed, well nourished, + ill appearing and + morbidly obese Eyes: PERRL, conjunctivae normal, anicteric sclerae ENMT: external ear and nose normal, oropharynx normal Neck: trachea midline, no thyromegaly Respiratory: no respiratory distress Auscultation: lungs clear to auscultation bilaterally and + diminished lung sounds Cardiovascular: Rate/Rhythm: regular rate and regular rhythm; not tachycardic Heart Sounds: normal S1 and normal S2; no murmur Extremities: + edema (Trace edema bilaterally) Gastrointestinal (Abdomen): Inspection/Auscultation: + abdomen distended and normal bowel sounds Percussion/Palpation: abdomen soft; abdomen nontender Musculoskeletal: No acute arthritis involving any joint Neurologic: normal touch/pain/proprioception and moves all extremities; no focal motor deficits and not confused Psychiatric: A+Ox3, euthymic affect Lymphatic: no cervical or axillary lymphadenopathy Results & Data Results & Data Vital Signs (Past 12 Hours) Vital Signs Pulse Pulse Resp Pulse Ox O2 Del Method O2 Flow Rate 07/06/23 08:33 85 22 96 Room Air 07/06/23 07:41 84 07/06/23 04:30 100 H 17 94 07/06/23 04:14 88 19 95 Nasal Cannula 3 07/06/23 03:30 82 34 H 94 07/06/23 03:00 84 22 95 Laboratory Results Short CBC 07/06/23 Range/Units 03:46 WBC 9.18 (4.8-10.8) K/ul Hgb 14.1 (14.0-18.0) g/dl Hct 41.7 L (42.0-52.0) % Plt Count 226 (130-400) K/uL BMP 07/06/23 03:46 Sodium 135 L Potassium 4.0 Chloride 100 Carbon Dioxide 29 BUN 11 Creatinine 0.64 Glucose 189 H Calcium 8.9 Liver Function 07/06/23 Range/Units 03:46 Total Bilirubin 0.5 (0.2-1.0) mg/dl AST 15 (13-39) U/L ALT 12 (7-52) U/L Alkaline Phosphatase 94 (34-104) U/L Albumin 3.7 (3.4-5.0) gm/dl Urine 07/05/23 Range/Units 14:27 Urine Color Yellow Urine Appearance Clear (Clear) Urine pH 6.0 (4.5-7.5) Ur Specific [place] 1.041 H (1.000-1.030) Urine Protein 1+ H (Negative) Urine Glucose (UA) 3+ H (Negative) Medications Administered Current Inpatient Medications Acetaminophen (Acetaminophen 325 Mg Tab) 650 mg PO Q4H PRN PRN Reason: Pain or Fever Stop: 08/04/23 15:10 Last Admin: 07/06/23 04:10 Dose: 650 mg Albuterol (Albut/Ipratrop 3mg/0.5mg Neb 3 Ml Vial) 3 ml NEB QIDR PRN; Protocol PRN Reason: Shortness Of Breath Or Wheezing Stop: 08/04/23 14:59 Albuterol (Albuterol Hfa 8 Gm Inhaler) 2 puffs INH Q4H PRN PRN Reason: Shortness Of Breath Stop: 08/04/23 15:10 Allopurinol (Allopurinol 300 Mg Tab) 300 mg PO QAM CHAD Stop: 08/05/23 08:59 Last Admin: 07/06/23 08:20 Dose: 300 mg Benzonatate (Benzonatate 100 Mg Capsule) 100 mg PO TID PRN PRN Reason: Cough Stop: 08/04/23 20:59 Last Admin: 07/06/23 04:09 Dose: 100 mg Dextrose (Dextrose 50% 50 Ml Syringe) 25 - 50 ml IV UD PRN; Protocol PRN Reason: Hypoglycemia Protocol Stop: 08/04/23 14:16 Doxycycline Hyclate (Doxycycline Hyclate 100 Mg Cap) 100 mg PO Q12H CHAD Stop: 07/12/23 15:59 Last Admin: 07/06/23 04:09 Dose: 100 mg Enoxaparin Sodium (Enoxaparin Inj 40 Mg/0.4 Ml Syr) 40 mg SQ Q12H CHAD Stop: 08/04/23 15:59 Last Admin: 07/06/23 04:10 Dose: 40 mg Fluticasone Propionate (Fluticasone Propionate Na Spr 16 Gm Btl) 2 sprays SULLY DAILY CHAD Stop: 08/05/23 08:59 Last Admin: 07/06/23 08:36 Dose: 2 sprays Glucagon (Glucagon For Inj 1 Mg Vial) 1 mg SQ UD PRN; Protocol PRN Reason: Hypoglycemia Protocol Stop: 08/04/23 14:16 Glucose (Glucose 10 Tab/Tube) 4 - 8 tab PO UD PRN; Protocol PRN Reason: Hypoglycemia Treatment Stop: 08/04/23 14:16 Glucose (Glucose 40% Gel 15 Gm Tube) 15 - 30 gm PO UD PRN; Protocol PRN Reason: Hypoglycemia Protocol Stop: 08/04/23 14:16 Guaifenesin/Dextromethorphan (Guaifenesin/Dextrom Syrup 200mg/20mg 10ml Udc) 10 ml PO Q6H PRN PRN Reason: Cough Stop: 08/04/23 15:10 Hydrocodone Bit/Homatropine Methylb (Hydrocodone/Homatropine Syrup 5mg/1.5mg 5ml Udp) 5 ml PO Q6H PRN PRN Reason: Cough Stop: 07/20/23 14:55 Ibuprofen (Ibuprofen 200 Mg Tab) 400 mg PO Q8H PRN PRN Reason: Pain or Fever Stop: 08/04/23 15:10 Last Admin: 07/06/23 04:10 Dose: 400 mg Insulin Aspart (Insulin Aspart Per Unit Charge) 0 units SC ACHS CHAD Stop: 08/04/23 16:29 Last Admin: 07/06/23 14:00 Dose: 24 units Insulin Glargine (Lantus Per Unit Charge) 30 units SC BID [facility] Stop: 08/05/23 20:59 Miconazole Nitrate (Miconazole Nitrate 2% Cr 30 Gm Tube) 1 appln EXT Q12H [facility] Stop: 08/04/23 17:59 Last Admin: 07/06/23 06:57 Dose: Not Given Miscellaneous (Carbohydrates For Hypoglycemia ) 15 - 30 gm PO UD PRN PRN Reason: Hypoglycemia Protocol Stop: 08/04/23 14:16 Miscellaneous Information (Pharmacy Glycemic Mgmt Consult) 1 each N/A UD PRN; Protocol PRN Reason: Consult Stop: 08/04/23 14:13 Nystatin (Nystatin Cr 15 Gm Tube) 1 appln EXT BID PRN PRN Reason: Affected Skin Folds Stop: 08/04/23 20:59 Ondansetron HCl (Ondansetron Inj 2 Mg/Ml 2 Ml Vial) 4 mg IV Q6H PRN PRN Reason: Nausea Stop: 08/04/23 15:10 Pantoprazole Sodium (Pantoprazole 40 Mg Tab) 40 mg PO DAILYBB [facility] Stop: 08/05/23 06:29 Last Admin: 07/06/23 06:58 Dose: Not Given Polyethylene Glycol (Polyethylene (Miralax) 17 Gm Pack) 17 gm PO DAILY PRN PRN Reason: Constipation Stop: 08/04/23 15:10
[2023-07-06] MEDS ORDERED: INFLUENZA VIRUS QUADRIVALENT VACCINE (IIV4) 0.5 ML SYR IM ONE (15:44)
[2023-07-06] MEDS ORDERED: PNEUMOCOCCAL VACCINE (PCV20) 20-VAL CONJ-DIP CRM/PF 0.5 ML SYR IM ONE (15:44)
[2023-07-06] MEDS: guaiFENesin/DEXTROM SYRUP 200MG/20MG 10ML UDC PO PRN ×2 (15:54→20:54)
[2023-07-06] MEDS ORDERED: LANTUS PER UNIT CHARGE SC SCH (21:00)
[2023-07-07] MEDS: ENOXAPARIN INJ 40 MG/0.4 ML SYR SQ SCH ×2 (03:19→18:05)
[2023-07-07] MEDS: DOXYCYCLINE HYCLATE 100 MG CAP PO SCH ×2 (03:19→18:05)
[2023-07-07] MEDS: ACETAMINOPHEN 325 MG TAB PO PRN (03:19)
[2023-07-07] MEDS: PANTOprazole 40 MG TAB PO SCH (05:38)
[2023-07-07 06:40] LABS: Basophils # (auto) 0.05 K/uL (0.00-0.20); Basophils % (auto) 0.5 %; Eosinophils # (auto) 0.27 K/uL (0.00-0.50); Eosinophils % (auto) 2.9 %; Hematocrit (blood only) 42.8 % (42.0-52.0); Hemoglobin 14.8 g/dl (14.0-18.0); Immature Granulocytes # (auto) 0.09 K/uL (0.01-0.20); Lymphocytes # (auto) 3.27 K/uL (1.20-3.40); Lymphocytes % (auto) 35.2 %; Mean Corpuscular Hemoglobin 27.7 pg (25.0-34.0); Mean Corpuscular Hgb Conc 34.6 g/dL (32.0-36.0); Mean Corpuscular Volume 80.1 fL (80.0-100.0); Mean Platelet Volume 9.3 fL (9.4-12.4); Monocytes # (auto) 0.69 K/uL (0.11-0.59); Monocytes % (auto) 7.4 %; Neutrophils # (auto) 4.93 K/uL (1.40-6.50); Platelet Count 243 K/uL (130-400); RDW Standard Deviation 40.5 fL (36.4-46.3); Red Blood Count 5.34 M/uL (4.70-6.10)
[2023-07-07 07:41] LABS: Albumin Level 3.9 gm/dl (3.4-5.0); Bilirubin,Total 0.5 mg/dl (0.2-1.0); Calcium 8.9 mg/dl (8.6-10.3); Potassium 4.4 mmol/L (3.5-5.1)
[2023-07-07 07:47] LABS: Albumin Globulin Ratio 1.4 (0.9-2); BUN Creatinine Ratio 20.6 (10-20); C Reactive Protein 1.46 mg/dl (0-0.5); Creatinine Clr Calc Pharmacy 228.1 ml/min; Est GFR (African American) 146.5 ml/min; Est GFR (Non-African American) 126.4 ml/min; Globulin 2.8 gm/dl (2.5-4.0); Total Protein 6.7 gm/dl (6.0-8.3)
[2023-07-07] MEDS: LANTUS PER UNIT CHARGE SC SCH ×2 (09:05→20:39)
[2023-07-07] MEDS: INSULIN ASPART PER UNIT CHARGE SC SCH ×4 (09:05→20:38)
[2023-07-07] MEDS: allopurinoL 300 MG TAB PO SCH (09:24)
[2023-07-07] MEDS: MICONAZOLE NITRATE 2% CR 30 GM TUBE EXT SCH (10:51)
[2023-07-07] MEDS: FLUTICASONE PROPIONATE NA SPR 16 GM BTL NAE SCH (11:07)
[2023-07-07] MEDS: CIPRO 0.3%/DEXAMETHASONE 0.1% OTIC SUSP 7.5ML OTL SCH ×2 (11:08→20:42)
--- NOTE | 2023-07-07 13:39 | Pharmacy Report ---
Pharmacy Glycemic Short Note 2 - Date of Service July 07, 2023 - Glycemic Short BSG Results (Last 24 hours): 07/06/23 07/07/23 07/07/23 18:48 06:11 08:26 Glucose 288 H POC Glucose 146 H 272 H 07/07/23 12:33 Glucose POC Glucose 217 H OUTPATIENT ANTIDIABETIC REGIMEN: * N/A * HbA1C= 13.5% (07/05/23) ASSESSMENT: 07/07/23 * BSGs yesterday were 527-251-590-146 mg/dL. Patient received 105 units of insulin (60 units of basal and 45 units of bolus) * Today's BSGs are 272-217 mg/dL. * For basal insulin, provided a slightly higher dose of 35 units if BSG > 200 mg/dL as fasting BSG 100 points higher than HS BSG. * For Novolog, this was tightened yesterday and produced BSGs within goal range. Will continue. BACKGROUND * Mr Grady is a 32 y/o M with a PMH of T2DM who presents for COVID. Patient did not received steroids. * Admitting BSG was 412 around 1400. * Patient initially given 45 units around 1600 + Novolog weight-based stress of 2. (adjust body weight weight based stress of 3). * BSGs from 1600 onward were 298-305 then overnight were 169-190 mg/dL. * Patient received an additional 6 units overnight. * Fasting BSG today was 263. Patient received 45 units + 6 units overnight which estimates a basal requirement of 50 units. Since fasting BSG above goal range will increase that by 20% to 60 units daily. Will start 30 units BID. * Tighten Novolog since BSGs remain elevated. PLAN FOR INPATIENT GLYCEMIC CONTROL: * Basal insulin * Lantus 30 units SQ BID (35 units if BSG > 200 mg/dL) * Bolus insulin * NovoLog per scale ACHS or Q6hrs while NPO * Goal Range: Low 110 mg/dL - High 140 mg/dL * Correction Factor: 12 mg/dL/unit * Nutritional / Prandial insulin per carb ratio of 1 unit per 4 grams CHO consumed
--- NOTE | 2023-07-07 16:27 | Hospitalist Progress Note ---
Date of Service July 07, 2023 Assessment & Plan (1) COVID-19: Plan: Exposed to child last week, developed sx on 06/30 Last fever on 07/04, continues to feel congested, having myalgias and SOB with coughing. 93% on RA CXR without acute process Complaints of weakness and cough but no shortness of breath at rest and saturating normally on room air Started on IV remdesivir which will be discontinued Holding off on steroids as patient not oxygen requiring, already has uncontrolled BSG as above Duonebs QID PRN, antitussives Complains to have more cough and will add Hycodan on top of guaifenesin Clinically stable Cough is improved and weakness is improved but is still persisting Not yet ready to be discharged Saturating normally on room air (2) Obstructive sleep apnea: Plan: Continue the CPAP MANI not on CPAP Agreeable to use cpap again, awaiting new home mask (3) Morbid obesity: Plan: Has been working on reducing weight (4) Uncontrolled diabetes mellitus with hyperglycemia: Plan: Hyperglycemia Newly diagnosed DM II Increased thirst, a1c of 12.8 on June 30, started on Metformin 500mg daily. Also prescribed Trulicity but just received insurance auth, has not yet started Initial BSG 463 today -> 412 after 2L NCC No anion gap, UA pending for ketones Given 45u glargine in ED Glycemic consulted, appreciate help with mgmt political advisor consulted Continue counseling on importance of weight loss, following with Nutrition & Weight Mgmt as outpatient Will hold his oral metformin for now He will need to have insulin on discharge Will have new diabetic supply prior to discharge Diabetes supply Mr. Grady ([id number]) will need the following at time of discharge: 1.) OneTouch Ultra2 Meter. 2.) OneTouch Ultra Test Strips- to check 3x/day. 3.) OneTouch Delica Lancets 33 gauge- to check 3x/day. 4.) Insulin glargine pen- if goes home on insulin. 5.) Pen [place] 32 gauge - to injection 1x/day- if goes home on insulin. Plan This is a 32yo M with a PMH of recently diagnosed DM II, morbid obesity, childhood asthma, MANI not on CPAP who presents with ongoing cough and malaise for the past week who presents with covid 19 as well as hyperglycemia in setting of uncontrolled newly diagnosed DM II. Morbid obesity BMI 49.5 Following with Nutrition & Weight Mgmt Rash in groin Fungal infection 2/2 uncontrolled DM II, obesity Started on miconazole, nystatin BID DVT Ppx: SQ lovenox Code status: FULL PCP: [place] Dispo: [facility] Likely discharge in a day or 2 Admission and Anticipated Discharge Date Admission Date: July 05, 2023 Subjective 07/06/2023 The patient was seen and examined in emergency room He has been complaining of cough without any phlegm and does not have any shortness of breath Saturating normally on room air Denies any other symptoms 07/07/2023 The patient was seen and examined in medical telemetry unit and in the COVID room He has been feeling much better but he still has the cough and weakness Has not been requiring oxygen Has been ambulating in the room without any difficulties Review of Systems Review of Systems: All systems reviewed and are unremarkable except as noted below Physical Exam Physical Exam: Lying in bed with minimal distress due to ongoing cough Constitutional: well developed, well nourished, + ill appearing and + morbidly obese Eyes: PERRL, conjunctivae normal, anicteric sclerae ENMT: external ear and nose normal, oropharynx normal Neck: trachea midline, no thyromegaly Respiratory: no respiratory distress Auscultation: lungs clear to auscultation bilaterally and + diminished lung sounds Cardiovascular: Rate/Rhythm: regular rate and regular rhythm; not tachycardic Heart Sounds: normal S1 and normal S2; no murmur Extremities: + edema (Trace edema bilaterally) Gastrointestinal (Abdomen): Inspection/Auscultation: + abdomen distended and normal bowel sounds Percussion/Palpation: abdomen soft; abdomen nontender Musculoskeletal: No acute arthritis involving any joint Neurologic: normal touch/pain/proprioception and moves all extremities; no focal motor deficits and not confused Psychiatric: A+Ox3, euthymic affect Lymphatic: no cervical or axillary lymphadenopathy Results & Data Results & Data Vital Signs (Past 12 Hours) Vital Signs Temp Pulse Pulse Resp BP Pulse Ox O2 Del Method 07/07/23 15:18 36.8 C 76 16 133/72 95 Room Air 07/07/23 11:29 36.5 C 87 16 144/83 H 95 Room Air 07/07/23 07:51 36.3 C L 79 16 151/102 H 94 Room Air 07/07/23 07:43 85 Laboratory Results Short CBC 07/07/23 Range/Units 06:11 WBC 9.30 (4.8-10.8) K/ul Hgb 14.8 (14.0-18.0) g/dl Hct 42.8 (42.0-52.0) % Plt Count 243 (130-400) K/uL BMP 07/07/23 06:11 Sodium 133 L Potassium 4.4 Chloride 99 Carbon Dioxide 26 BUN 14 Creatinine 0.68 Glucose 288 H Calcium 8.9 Liver Function 07/07/23 Range/Units 06:11 Total Bilirubin 0.5 (0.2-1.0) mg/dl AST 17 (13-39) U/L ALT 13 (7-52) U/L Alkaline Phosphatase 94 (34-104) U/L Albumin 3.9 (3.4-5.0) gm/dl Medications Administered Current Inpatient Medications Acetaminophen (Acetaminophen 325 Mg Tab) 650 mg PO Q4H PRN PRN Reason: Pain or Fever Stop: 08/04/23 15:10 Last Admin: 07/07/23 03:19 Dose: 650 mg Albuterol (Albut/Ipratrop 3mg/0.5mg Neb 3 Ml Vial) 3 ml NEB QIDR PRN; Protocol PRN Reason: Shortness Of Breath Or Wheezing Stop: 08/04/23 14:59 Albuterol (Albuterol Hfa 8 Gm Inhaler) 2 puffs INH Q4H PRN PRN Reason: Shortness Of Breath Stop: 08/04/23 15:10 Allopurinol (Allopurinol 300 Mg Tab) 300 mg PO QAM [facility] Stop: 08/05/23 08:59 Last Admin: 07/07/23 09:24 Dose: 300 mg Benzonatate (Benzonatate 100 Mg Capsule) 100 mg PO TID PRN PRN Reason: Cough Stop: 08/04/23 20:59 Last Admin: 07/06/23 04:09 Dose: 100 mg Ciprofloxacin/Dexamethasone (Cipro 0.3%/Dexamethasone 0.1% Otic Susp 7.5ml) 4 drops OTL BID [facility] Stop: 07/14/23 08:59 Last Admin: 07/07/23 11:08 Dose: 4 drops Clotrimazole (Clotrimazole 1% Cr 15 Gm Tube) 1 appln EXT BID [facility] Stop: 08/06/23 20:59 Dextrose (Dextrose 50% 50 Ml Syringe) 25 - 50 ml IV UD PRN; Protocol PRN Reason: Hypoglycemia Protocol Stop: 08/04/23 14:16 Doxycycline Hyclate (Doxycycline Hyclate 100 Mg Cap) 100 mg PO Q12H [facility] Stop: 07/12/23 15:59 Last Admin: 07/07/23 03:19 Dose: 100 mg Enoxaparin Sodium (Enoxaparin Inj 40 Mg/0.4 Ml Syr) 40 mg SQ Q12H [facility] Stop: 08/04/23 15:59 Last Admin: 07/07/23 03:19 Dose: 40 mg Fluticasone Propionate (Fluticasone Propionate Na Spr 16 Gm Btl) 2 sprays SULLY DAILY [facility] Stop: 08/05/23 08:59 Last Admin: 07/07/23 11:07 Dose: 2 sprays Glucagon (Glucagon For Inj 1 Mg Vial) 1 mg SQ UD PRN; Protocol PRN Reason: Hypoglycemia Protocol Stop: 08/04/23 14:16 Glucose (Glucose 10 Tab/Tube) 4 - 8 tab PO UD PRN; Protocol PRN Reason: Hypoglycemia Treatment Stop: 08/04/23 14:16 Glucose (Glucose 40% Gel 15 Gm Tube) 15 - 30 gm PO UD PRN; Protocol PRN Reason: Hypoglycemia Protocol Stop: 08/04/23 14:16 Guaifenesin/Dextromethorphan (Guaifenesin/Dextrom Syrup 200mg/20mg 10ml Udc) 10 ml PO Q6H PRN PRN Reason: Cough Stop: 08/04/23 15:10 Last Admin: 07/06/23 20:54 Dose: 10 ml Hydrocodone Bit/Homatropine Methylb (Hydrocodone/Homatropine Syrup 5mg/1.5mg 5ml Udp) 5 ml PO Q6H PRN PRN Reason: Cough Stop: 07/20/23 14:55 Ibuprofen (Ibuprofen 200 Mg Tab) 400 mg PO Q8H PRN PRN Reason: Pain or Fever Stop: 08/04/23 15:10 Last Admin: 07/06/23 04:10 Dose: 400 mg Insulin Aspart (Insulin Aspart Per Unit Charge) 0 units SC ACHS [facility] Stop: 08/04/23 16:29 Last Admin: 07/07/23 13:02 Dose: 21 units Insulin Glargine (Lantus Per Unit Charge) 0 units SC BID [facility]; Protocol Stop: 08/06/23 08:59 Last Admin: 07/07/23 09:05 Dose: 35 units Miscellaneous (Carbohydrates For Hypoglycemia ) 15 - 30 gm PO UD PRN PRN Reason: Hypoglycemia Protocol Stop: 08/04/23 14:16 Miscellaneous Information (Pharmacy Glycemic Mgmt Consult) 1 each N/A UD PRN; Protocol PRN Reason: Consult Stop: 08/04/23 14:13 Nystatin (Nystatin Cr 15 Gm Tube) 1 appln EXT BID PRN PRN Reason: Affected Skin Folds Stop: 08/04/23 20:59 Ondansetron HCl (Ondansetron Inj 2 Mg/Ml 2 Ml Vial) 4 mg IV Q6H PRN PRN Reason: Nausea Stop: 08/04/23 15:10 Pantoprazole Sodium (Pantoprazole 40 Mg Tab) 40 mg PO DAILYBB [facility] Stop: 08/05/23 06:29 Last Admin: 07/07/23 05:38 Dose: 40 mg Polyethylene Glycol (Polyethylene (Miralax) 17 Gm Pack) 17 gm PO DAILY PRN PRN Reason: Constipation Stop: 08/04/23 15:10
[2023-07-07] MEDS: guaiFENesin/DEXTROM SYRUP 200MG/20MG 10ML UDC PO PRN (20:43)
[2023-07-07] MEDS: CLOTRIMAZOLE 1% CR 15 GM TUBE EXT SCH (20:43)
[2023-07-08] MEDS: DOXYCYCLINE HYCLATE 100 MG CAP PO SCH (05:44)
[2023-07-08] MEDS: ENOXAPARIN INJ 40 MG/0.4 ML SYR SQ SCH (05:44)
[2023-07-08] MEDS: PANTOprazole 40 MG TAB PO SCH (05:44)
[2023-07-08] MEDS ORDERED: LANTUS PER UNIT CHARGE SC SCH (09:00)
[2023-07-08] MEDS: INSULIN ASPART PER UNIT CHARGE SC SCH (09:42)
[2023-07-08] MEDS: CIPRO 0.3%/DEXAMETHASONE 0.1% OTIC SUSP 7.5ML OTL SCH (09:44)
[2023-07-08] MEDS: allopurinoL 300 MG TAB PO SCH (09:44)
[2023-07-08] MEDS: FLUTICASONE PROPIONATE NA SPR 16 GM BTL NAE SCH (09:45)
[2023-07-08] MEDS: CLOTRIMAZOLE 1% CR 15 GM TUBE EXT SCH (09:45)
--- NOTE | 2023-07-08 11:14 | Hospitalist Progress Note ---
Date of Service July 08, 2023 Assessment & Plan (1) COVID-19: Plan: Exposed to child last week, developed sx on 06/30 Last fever on 07/04, continues to feel congested, having myalgias and SOB with coughing. 93% on RA CXR without acute process Complaints of weakness and cough but no shortness of breath at rest and saturating normally on room air Started on IV remdesivir which will be discontinued Holding off on steroids as patient not oxygen requiring, already has uncontrolled BSG as above Duonebs QID PRN, antitussives Complains to have more cough and will add Hycodan on top of guaifenesin Clinically stable Cough is improved and weakness is improved but is still persisting Not yet ready to be discharged Saturating normally on room air Remains stable without any symptoms of cough and no shortness of breath and has been saturating normally on room air (2) Obstructive sleep apnea: Plan: Continue the CPAP MANI not on CPAP Agreeable to use cpap again, awaiting new home mask Will continue his CPAP as an outpatient (3) Morbid obesity: Plan: Has been working on reducing weight (4) Uncontrolled diabetes mellitus with hyperglycemia: Plan: Hyperglycemia Newly diagnosed DM II Increased thirst, a1c of 12.8 on June 30, started on Metformin 500mg daily. Also prescribed Trulicity but just received insurance auth, has not yet started Initial BSG 463 today -> 412 after 2L NCC No anion gap, UA pending for ketones Given 45u glargine in ED Glycemic consulted, appreciate help with mgmt windows technical specialist consulted Continue counseling on importance of weight loss, following with Nutrition & Weight Mgmt as outpatient Will hold his oral metformin for now He will need to have insulin on discharge Will have new diabetic supply prior to discharge Blood sugar seems to be reasonably stable and he will be discharged home this afternoon Diabetes supply Mr. Grady ([id number]) will need the following at time of discharge: 1.) OneTouch Ultra2 Meter. 2.) OneTouch Ultra Test Strips- to check 3x/day. 3.) OneTouch Delica Lancets 33 gauge- to check 3x/day. 4.) Insulin glargine pen- if goes home on insulin. 5.) Pen [place] 32 gauge - to injection 1x/day- if goes home on insulin. Plan This is a 32yo M with a PMH of recently diagnosed DM II, morbid obesity, childhood asthma, MANI not on CPAP who presents with ongoing cough and malaise for the past week who presents with covid 19 as well as hyperglycemia in setting of uncontrolled newly diagnosed DM II. Morbid obesity BMI 49.5 Following with Nutrition & Weight Mgmt Rash in groin Fungal infection 2/2 uncontrolled DM II, obesity Started on miconazole, nystatin BID DVT Ppx: SQ lovenox Code status: FULL PCP: [place] Dispo: Admitted to [facility] tele Likely discharge in a day or 2 Already has an appointment with his primary care doctor on Monday Admission and Anticipated Discharge Date Admission Date: July 05, 2023 Subjective 07/06/2023 The patient was seen and examined in emergency room He has been complaining of cough without any phlegm and does not have any shortness of breath Saturating normally on room air Denies any other symptoms 07/07/2023 The patient was seen and examined in medical telemetry unit and in the COVID room He has been feeling much better but he still has the cough and weakness Has not been requiring oxygen Has been ambulating in the room without any difficulties 07/08/2023 The patient was seen and examined in medical telemetry unit and in the COVID room He has been feeling much better and does not have any more cough and no shortness of breath at rest or with exertion His diabetes seems to be under control He will be discharged home this afternoon Review of Systems Review of Systems: All systems reviewed and are unremarkable except as noted below Physical Exam Physical Exam: Lying in bed with minimal distress due to ongoing cough Constitutional: well developed, well nourished, + ill appearing and + morbidly obese Eyes: PERRL, conjunctivae normal, anicteric sclerae ENMT: external ear and nose normal, oropharynx normal Neck: trachea midline, no thyromegaly Respiratory: no respiratory distress Auscultation: lungs clear to auscultation bilaterally and + diminished lung sounds Cardiovascular: Rate/Rhythm: regular rate and regular rhythm; not tachycardic Heart Sounds: normal S1 and normal S2; no murmur Extremities: + edema (Trace edema bilaterally) Gastrointestinal (Abdomen): Inspection/Auscultation: + abdomen distended and normal bowel sounds Percussion/Palpation: abdomen soft; abdomen nontender Musculoskeletal: No acute arthritis involving any joint Neurologic: normal touch/pain/proprioception and moves all extremities; no focal motor deficits and not confused Psychiatric: A+Ox3, euthymic affect Lymphatic: no cervical or axillary lymphadenopathy Results & Data Results & Data Vital Signs (Past 12 Hours) Vital Signs Temp Pulse Pulse Resp BP Pulse Ox O2 Del Method 07/08/23 07:58 36.6 C 87 18 136/76 96 Room Air 07/08/23 03:14 36.4 C L 84 18 135/75 96 Nasal Cannula 07/08/23 00:23 84 O2 Flow Rate 07/08/23 07:58 07/08/23 03:14 2 07/08/23 00:23 Laboratory Results Current Inpatient Medications Acetaminophen (Acetaminophen 325 Mg Tab) 650 mg PO Q4H PRN PRN Reason: Pain or Fever Stop: 08/04/23 15:10 Last Admin: 07/07/23 03:19 Dose: 650 mg Albuterol (Albut/Ipratrop 3mg/0.5mg Neb 3 Ml Vial) 3 ml NEB QIDR PRN; Protocol PRN Reason: Shortness Of Breath Or Wheezing Stop: 08/04/23 14:59 Albuterol (Albuterol Hfa 8 Gm Inhaler) 2 puffs INH Q4H PRN PRN Reason: Shortness Of Breath Stop: 08/04/23 15:10 Allopurinol (Allopurinol 300 Mg Tab) 300 mg PO QAM [facility] Stop: 08/05/23 08:59 Last Admin: 07/08/23 09:44 Dose: 300 mg Benzonatate (Benzonatate 100 Mg Capsule) 100 mg PO TID PRN PRN Reason: Cough Stop: 08/04/23 20:59 Last Admin: 07/06/23 04:09 Dose: 100 mg Ciprofloxacin/Dexamethasone (Cipro 0.3%/Dexamethasone 0.1% Otic Susp 7.5ml) 4 drops OTL BID [facility] Stop: 07/14/23 08:59 Last Admin: 07/08/23 09:44 Dose: 4 drops Clotrimazole (Clotrimazole 1% Cr 15 Gm Tube) 1 appln EXT BID [facility] Stop: 08/06/23 20:59 Last Admin: 07/08/23 09:45 Dose: 1 appln Dextrose (Dextrose 50% 50 Ml Syringe) 25 - 50 ml IV UD PRN; Protocol PRN Reason: Hypoglycemia Protocol Stop: 08/04/23 14:16 Doxycycline Hyclate (Doxycycline Hyclate 100 Mg Cap) 100 mg PO Q12H [facility] Stop: 07/12/23 15:59 Last Admin: 07/08/23 05:44 Dose: 100 mg Enoxaparin Sodium (Enoxaparin Inj 40 Mg/0.4 Ml Syr) 40 mg SQ Q12H [facility] Stop: 08/04/23 15:59 Last Admin: 07/08/23 05:44 Dose: 40 mg Fluticasone Propionate (Fluticasone Propionate Na Spr 16 Gm Btl) 2 sprays SULLY DAILY [facility] Stop: 08/05/23 08:59 Last Admin: 07/08/23 09:45 Dose: 2 sprays Glucagon (Glucagon For Inj 1 Mg Vial) 1 mg SQ UD PRN; Protocol PRN Reason: Hypoglycemia Protocol Stop: 08/04/23 14:16 Glucose (Glucose 10 Tab/Tube) 4 - 8 tab PO UD PRN; Protocol PRN Reason: Hypoglycemia Treatment Stop: 08/04/23 14:16 Glucose (Glucose 40% Gel 15 Gm Tube) 15 - 30 gm PO UD PRN; Protocol PRN Reason: Hypoglycemia Protocol Stop: 08/04/23 14:16 Guaifenesin/Dextromethorphan (Guaifenesin/Dextrom Syrup 200mg/20mg 10ml Udc) 10 ml PO Q6H PRN PRN Reason: Cough Stop: 08/04/23 15:10 Last Admin: 07/07/23 20:43 Dose: 10 ml Hydrocodone Bit/Homatropine Methylb (Hydrocodone/Homatropine Syrup 5mg/1.5mg 5ml Udp) 5 ml PO Q6H PRN PRN Reason: Cough Stop: 07/20/23 14:55 Ibuprofen (Ibuprofen 200 Mg Tab) 400 mg PO Q8H PRN PRN Reason: Pain or Fever Stop: 08/04/23 15:10 Last Admin: 07/06/23 04:10 Dose: 400 mg Insulin Aspart (Insulin Aspart Per Unit Charge) 0 units SC ACHS [facility]; Protocol Stop: 08/04/23 16:29 Last Admin: 07/08/23 09:42 Dose: 22 units Insulin Glargine (Lantus Per Unit Charge) 38 units SC BID [facility]; Protocol Stop: 08/06/23 08:59 Last Admin: 07/08/23 09:44 Dose: 38 units Miscellaneous (Carbohydrates For Hypoglycemia ) 15 - 30 gm PO UD PRN PRN Reason: Hypoglycemia Protocol Stop: 08/04/23 14:16 Miscellaneous Information (Pharmacy Glycemic Mgmt Consult) 1 each N/A UD PRN; Protocol PRN Reason: Consult Stop: 08/04/23 14:13 Nystatin (Nystatin Cr 15 Gm Tube) 1 appln EXT BID PRN PRN Reason: Affected Skin Folds Stop: 08/04/23 20:59 Ondansetron HCl (Ondansetron Inj 2 Mg/Ml 2 Ml Vial) 4 mg IV Q6H PRN PRN Reason: Nausea Stop: 08/04/23 15:10 Pantoprazole Sodium (Pantoprazole 40 Mg Tab) 40 mg PO DAILYBB [facility] Stop: 08/05/23 06:29 Last Admin: 07/08/23 05:44 Dose: 40 mg Polyethylene Glycol (Polyethylene (Miralax) 17 Gm Pack) 17 gm PO DAILY PRN PRN Reason: Constipation Stop: 08/04/23 15:10 Medications Administered Current Inpatient Medications Acetaminophen (Acetaminophen 325 Mg Tab) 650 mg PO Q4H PRN PRN Reason: Pain or Fever Stop: 08/04/23 15:10 Last Admin: 07/07/23 03:19 Dose: 650 mg Albuterol (Albut/Ipratrop 3mg/0.5mg Neb 3 Ml Vial) 3 ml NEB QIDR PRN; Protocol PRN Reason: Shortness Of Breath Or Wheezing Stop: 08/04/23 14:59 Albuterol (Albuterol Hfa 8 Gm Inhaler) 2 puffs INH Q4H PRN PRN Reason: Shortness Of Breath Stop: 08/04/23 15:10 Allopurinol (Allopurinol 300 Mg Tab) 300 mg PO QAM [facility] Stop: 08/05/23 08:59 Last Admin: 07/08/23 09:44 Dose: 300 mg Benzonatate (Benzonatate 100 Mg Capsule) 100 mg PO TID PRN PRN Reason: Cough Stop: 08/04/23 20:59 Last Admin: 07/06/23 04:09 Dose: 100 mg Ciprofloxacin/Dexamethasone (Cipro 0.3%/Dexamethasone 0.1% Otic Susp 7.5ml) 4 drops OTL BID [facility] Stop: 07/14/23 08:59 Last Admin: 07/08/23 09:44 Dose: 4 drops Clotrimazole (Clotrimazole 1% Cr 15 Gm Tube) 1 appln EXT BID [facility] Stop: 08/06/23 20:59 Last Admin: 07/08/23 09:45 Dose: 1 appln Dextrose (Dextrose 50% 50 Ml Syringe) 25 - 50 ml IV UD PRN; Protocol PRN Reason: Hypoglycemia Protocol Stop: 08/04/23 14:16 Doxycycline Hyclate (Doxycycline Hyclate 100 Mg Cap) 100 mg PO Q12H [facility] Stop: 07/12/23 15:59 Last Admin: 07/08/23 05:44 Dose: 100 mg Enoxaparin Sodium (Enoxaparin Inj 40 Mg/0.4 Ml Syr) 40 mg SQ Q12H [facility] Stop: 08/04/23 15:59 Last Admin: 07/08/23 05:44 Dose: 40 mg Fluticasone Propionate (Fluticasone Propionate Na Spr 16 Gm Btl) 2 sprays SULLY DAILY [facility] Stop: 08/05/23 08:59 Last Admin: 07/08/23 09:45 Dose: 2 sprays Glucagon (Glucagon For Inj 1 Mg Vial) 1 mg SQ UD PRN; Protocol PRN Reason: Hypoglycemia Protocol Stop: 08/04/23 14:16 Glucose (Glucose 10 Tab/Tube) 4 - 8 tab PO UD PRN; Protocol PRN Reason: Hypoglycemia Treatment Stop: 08/04/23 14:16 Glucose (Glucose 40% Gel 15 Gm Tube) 15 - 30 gm PO UD PRN; Protocol PRN Reason: Hypoglycemia Protocol Stop: 08/04/23 14:16 Guaifenesin/Dextromethorphan (Guaifenesin/Dextrom Syrup 200mg/20mg 10ml Udc) 10 ml PO Q6H PRN PRN Reason: Cough Stop: 08/04/23 15:10 Last Admin: 07/07/23 20:43 Dose: 10 ml Hydrocodone Bit/Homatropine Methylb (Hydrocodone/Homatropine Syrup 5mg/1.5mg 5ml Udp) 5 ml PO Q6H PRN PRN Reason: Cough Stop: 07/20/23 14:55 Ibuprofen (Ibuprofen 200 Mg Tab) 400 mg PO Q8H PRN PRN Reason: Pain or Fever Stop: 08/04/23 15:10 Last Admin: 07/06/23 04:10 Dose: 400 mg Insulin Aspart (Insulin Aspart Per Unit Charge) 0 units SC ACHS [facility]; Protocol Stop: 08/04/23 16:29 Last Admin: 07/08/23 09:42 Dose: 22 units Insulin Glargine (Lantus Per Unit Charge) 38 units SC BID [facility]; Protocol Stop: 08/06/23 08:59 Last Admin: 07/08/23 09:44 Dose: 38 units Miscellaneous (Carbohydrates For Hypoglycemia ) 15 - 30 gm PO UD PRN PRN Reason: Hypoglycemia Protocol Stop: 08/04/23 14:16 Miscellaneous Information (Pharmacy Glycemic Mgmt Consult) 1 each N/A UD PRN; Protocol PRN Reason: Consult Stop: 08/04/23 14:13 Nystatin (Nystatin Cr 15 Gm Tube) 1 appln EXT BID PRN PRN Reason: Affected Skin Folds Stop: 08/04/23 20:59 Ondansetron HCl (Ondansetron Inj 2 Mg/Ml 2 Ml Vial) 4 mg IV Q6H PRN PRN Reason: Nausea Stop: 08/04/23 15:10 Pantoprazole Sodium (Pantoprazole 40 Mg Tab) 40 mg PO DAILYBB [facility] Stop: 08/05/23 06:29 Last Admin: 07/08/23 05:44 Dose: 40 mg Polyethylene Glycol (Polyethylene (Miralax) 17 Gm Pack) 17 gm PO DAILY PRN PRN Reason: Constipation Stop: 08/04/23 15:10
== END 2023-07-08 14:06 | disposition home or self-care (01) | DRG 178 ==
LOC: ED 11:54 → EDINP 14:21 → SUATTDRO 14:21 → 2N 07-06 15:07